=== PATIENT | female | born 1965 | race Caucasian/White ===

== ENCOUNTER 2018-04-15 06:53 | Outpatient (RCR) | payer OTHER, SELFPAY ==
[2018-04-15 07:14] LABS: Absolute Lymphocyte Count 2.13 X10^3/ul (0.83-4.51); Absolute Neutrophil Count 4.1 X10^3/uL (2.0-7.7); Basophil# 0.03 X10^3/uL; Basophil% 0.4 % (0-1); Eosinophil# 0.65 X10^3/uL; Hematocrit 40.8 % (37-47); Hemoglobin 13.5 g/dl (12.0-15.0); Lymphocyte # 2.13 X10^3/ul (4.0); Lymphocyte % 29.6 % (19-41); Mean Corp Hgb Conc 33.1 g/gl (32-36); Mean Corpuscular Hgb 32.3 pg (27.0-32.0); Mean Corpuscular Volume 97.6 fL (81-99); Mean Platelet Vol. 11.3 fl (6.2-12.0); Monocyte# 0.27 X10^3/uL; Monocyte% 3.8 % (0-10); Neutrophil # 4.11 X10^3/uL (2.7-7.7); Neutrophil % 57.2 % (47-70); Platelet Count 246 K/mm3 (150-450); RBC Distribution Width CV 13.7 % (11.6-14.6); RBC Distribution Width SD 47.5 fl (35.1-43.9); Red Blood Count 4.18 M/mm3 (4.2-5.4); White Blood Count 7.2 K/mm3 (4.4-11.0)
[2018-04-15 07:20] LABS: POSITIVE COUNT NO; POSITIVE DIFFERENTIAL NO; POSITIVE MORPHOLOGY NO
[2018-04-15 07:36] LABS: AST(SGOT) 21 U/L (15-37); Alanine Aminotransfer ALT/SGPT 29 U/L (13-56); Albumin, Serum 3.6 g/dL (3.2-5.0); Alkaline Phosphatase 57 U/L (45-117); Anion Gap 6 (5-15); BUN 14 mg/dL (7-18); BUN/Creat Ratio 14.7 RATIO (10-20); Calcium,Total 8.9 mg/dL (8.5-10.1); Chloride 108 mmol/L (98-107); Creatinine, Serum 0.95 mg/dL (0.55-1.02); EST Glomerular Filtration Rate 65 mL/min (>60); Est Glom Filt Rate - Afr Amer 79 mL/min (>60); Globulin 3.7 g/dL (2.2-4.2); Glucose 126 mg/dL (74-106); Potassium 4.2 mmol/L (3.5-5.1); Protein, Total 7.3 g/dL (6.4-8.2); Sodium Level 141 mmol/L (136-145)
== END 2018-04-15 08:00 | disposition home or self-care (01) ==
LOC: LAB 06:53
PROVIDERS: Family Provider Family Medicine; PCP Family Medicine; Visit Provider Internal Medicine Rheumatology
DX: M05.70 Rheumatoid arthritis with rheumatoid factor of unspecified site without organ or systems involvement (principal); Z79.899 Other long term (current) drug therapy; M17.0 Bilateral primary osteoarthritis of knee; F32.89 Other specified depressive episodes; E03.9 Hypothyroidism, unspecified
CPT/HCPCS: 36415; 80053; 85025

== ENCOUNTER → 2018-05-01 18:00 | Outpatient (CLI) | payer OTHER, SELFPAY | PROVIDERS: Family Provider Family Medicine; PCP Family Medicine | DX: R30.0 Dysuria (principal) | CPT/HCPCS: 87077; 87086; 87088; 87186 ==

== ENCOUNTER 2018-10-21 17:26 | Outpatient (RCR) | payer OTHER, SELFPAY ==
[2018-10-21 17:46] LABS: Absolute Lymphocyte Count 4.13 X10^3/ul (0.83-4.51); Absolute Neutrophil Count 4.9 X10^3/uL (2.0-7.7); Basophil# 0.03 X10^3/uL; Basophil% 0.3 % (0-1); Eosinophil# 0.19 X10^3/uL; Hematocrit 42.3 % (37-47); Hemoglobin 13.6 g/dl (12.0-15.0); Lymphocyte # 4.13 X10^3/ul (4.0); Lymphocyte % 42.7 % (19-41); Mean Corp Hgb Conc 32.2 g/gl (32-36); Mean Corpuscular Hgb 31.4 pg (27.0-32.0); Mean Corpuscular Volume 97.7 fL (81-99); Mean Platelet Vol. 10.8 fl (6.2-12.0); Monocyte# 0.45 X10^3/uL; Monocyte% 4.6 % (0-10); Neutrophil # 4.87 X10^3/uL (2.7-7.7); Neutrophil % 50.3 % (47-70); Platelet Count 309 K/mm3 (150-450); RBC Distribution Width CV 13.8 % (11.6-14.6); RBC Distribution Width SD 49.6 fl (35.1-43.9); Red Blood Count 4.33 M/mm3 (4.2-5.4); White Blood Count 9.7 K/mm3 (4.4-11.0)
[2018-10-21 18:17] LABS: POSITIVE COUNT NO; POSITIVE DIFFERENTIAL NO; POSITIVE MORPHOLOGY NO
[2018-10-21 19:05] LABS: ALB/GLOB Ratio 1.1 RATIO (0.9-2.4); AST(SGOT) 14 U/L (15-37); Alanine Aminotransfer ALT/SGPT 23 U/L (13-56); Albumin, Serum 3.6 g/dL (3.2-5.0); Alkaline Phosphatase 71 U/L (45-117); Anion Gap 9 (5-15); BUN 18 mg/dL (7-18); BUN/Creat Ratio 18.4 RATIO (10-20); CRP < 2.90 mg/L (0.0-3.0); Calcium,Total 8.8 mg/dL (8.5-10.1); Chloride 106 mmol/L (98-107); Creatinine, Serum 0.98 mg/dL (0.55-1.02); EST Glomerular Filtration Rate 63 mL/min (>60); Est Glom Filt Rate - Afr Amer 76 mL/min (>60); Globulin 3.3 g/dL (2.2-4.2); Glucose 91 mg/dL (74-106); Potassium 3.5 mmol/L (3.5-5.1); Protein, Total 6.9 g/dL (6.4-8.2); Sodium Level 140 mmol/L (136-145); T4 Free Direct 0.93 ng/dL (0.76-1.46); Thyroid Stim Hormone (TSH) 5.52 uIU/mL (0.358-3.74)
[2018-10-26 19:57] LABS: Immunoglobulin E 684 IU/mL (0-100)
== END 2018-10-21 18:26 | disposition home or self-care (01) ==
LOC: LAB 17:26
PROVIDERS: Family Provider Family Medicine; PCP Internal Medicine Rheumatology; Referring Provider Internal Medicine Rheumatology; Visit Provider Internal Medicine Rheumatology
DX: M05.731 Rheumatoid arthritis with rheumatoid factor of right wrist without organ or systems involvement (principal); Z79.899 Other long term (current) drug therapy; M17.0 Bilateral primary osteoarthritis of knee; F32.89 Other specified depressive episodes; E03.9 Hypothyroidism, unspecified; M06.9 Rheumatoid arthritis, unspecified
CPT/HCPCS: 36415; 80053; 82785; 84439; 84443; 84481; 85025; 86140; 86431

== ENCOUNTER → 2019-04-24 | Outpatient (CLI) | payer OTHER, SELFPAY ==
[2019-04-24 11:19] LABS: Absolute Lymphocyte Count 2.64 X10^3/ul (0.83-4.51); Absolute Neutrophil Count 5.5 X10^3/uL (2.0-7.7); Basophil# 0.05 X10^3/uL; Basophil% 0.5 % (0-1); Eosinophil# 0.72 X10^3/uL; Eosinophils% 7.5 % (0-5); Hematocrit 39.7 % (37-47); Lymphocyte # 2.64 X10^3/ul (4.0); Lymphocyte % 27.6 % (19-41); Mean Corp Hgb Conc 32.7 g/gl (32-36); Mean Corpuscular Hgb 30.6 pg (27.0-32.0); Mean Corpuscular Volume 93.4 fL (81-99); Mean Platelet Vol. 11.1 fl (6.2-12.0); Monocyte% 6.3 % (0-10); Neutrophil # 5.54 X10^3/uL (2.7-7.7); Neutrophil % 57.9 % (47-70); Platelet Count 330 K/mm3 (150-450); RBC Distribution Width CV 13.9 % (11.6-14.6); RBC Distribution Width SD 46.9 fl (35.1-43.9); Red Blood Count 4.25 M/mm3 (4.2-5.4); White Blood Count 9.6 K/mm3 (4.4-11.0)
[2019-04-24 11:22] LABS: POSITIVE COUNT NO; POSITIVE DIFFERENTIAL NO; POSITIVE MORPHOLOGY NO
[2019-04-24 11:42] LABS: AST(SGOT) 15 U/L (15-37); Alanine Aminotransfer ALT/SGPT 25 U/L (13-56); Albumin, Serum 3.5 g/dL (3.2-5.0); Alkaline Phosphatase 74 U/L (45-117); Anion Gap 6 (5-15); BUN 21 mg/dL (7-18); BUN/Creat Ratio 22.2 RATIO (10-20); Chloride 109 mmol/L (98-107); Creatinine, Serum 0.94 mg/dL (0.55-1.02); EST Glomerular Filtration Rate 66 mL/min (>60); Est Glom Filt Rate - Afr Amer 79 mL/min (>60); Globulin 3.6 g/dL (2.2-4.2); Glucose 76 mg/dL (74-106); Potassium 4.2 mmol/L (3.5-5.1); Protein, Total 7.1 g/dL (6.4-8.2); Sodium Level 141 mmol/L (136-145)
== END | disposition home or self-care (01) ==
LOC: LAB 09:48
PROVIDERS: Family Provider Family Medicine; PCP Family Medicine; Referring Provider Internal Medicine Rheumatology; Visit Provider Internal Medicine Rheumatology
DX: M05.70 Rheumatoid arthritis with rheumatoid factor of unspecified site without organ or systems involvement (principal); M17.0 Bilateral primary osteoarthritis of knee; M47.892 Other spondylosis, cervical region; F32.89 Other specified depressive episodes; E03.9 Hypothyroidism, unspecified; Z79.899 Other long term (current) drug therapy
CPT/HCPCS: 36415; 80053; 85025

== ENCOUNTER 2019-05-05 16:30 | Outpatient (RCR) | payer OTHER, SELFPAY | END 2019-05-05 19:00 | disposition home or self-care (01) | LOC: PT 16:30 | PROVIDERS: Family Provider Family Medicine; PCP Family Medicine; Referring Provider Internal Medicine Rheumatology; Visit Provider Internal Medicine Rheumatology | DX: M05.731 Rheumatoid arthritis with rheumatoid factor of right wrist without organ or systems involvement (principal); M17.0 Bilateral primary osteoarthritis of knee; M47.892 Other spondylosis, cervical region | CPT/HCPCS: 97161 ==

== ENCOUNTER → 2019-10-22 16:42 | Outpatient (CLI) | payer OTHER, SELFPAY ==
[2019-10-22 17:16] LABS: Absolute Neutrophil Count 4.7 X10^3/uL (2.0-7.7); Basophil# 0.06 X10^3/uL; Basophil% 0.7 % (0-1); Eosinophil# 0.46 X10^3/uL; Eosinophils% 5.4 % (0-5); Hematocrit 42.3 % (37-47); Hemoglobin 13.7 g/dL (12.0-15.0); Mean Corp Hgb Conc 32.4 g/dL (32-36); Mean Corpuscular Hgb 31.4 pg (27.0-32.0); Mean Platelet Vol. 10.9 fl (6.2-12.0); Monocyte# 0.42 X10^3/uL; NRBC Flagged by Analyzer 0 % (0-5); Neutrophil # 4.71 X10^3/uL (2.7-7.7); Neutrophil % 55.5 % (47-70); Platelet Count 348 K/mm3 (150-450); RBC Distribution Width CV 13.6 % (11.6-14.6); RBC Distribution Width SD 48.2 fl (35.1-43.9); Red Blood Count 4.36 M/mm3 (4.2-5.4); White Blood Count 8.5 K/mm3 (4.4-11.0)
[2019-10-22 17:30] LABS: ALB/GLOB Ratio 1.1 RATIO (0.9-2.4); AST(SGOT) 22 U/L (15-37); Alanine Aminotransfer ALT/SGPT 33 U/L (13-56); Alkaline Phosphatase 88 U/L (45-117); Anion Gap 6 (5-15); BUN 17 mg/dL (7-18); BUN/Creat Ratio 16.7 RATIO (10-20); Calcium,Total 9.5 mg/dL (8.5-10.1); Chloride 106 mmol/L (98-107); Creatinine, Serum 1.02 mg/dL (0.55-1.02); EST Glomerular Filtration Rate 60 mL/min (>60); Est Glom Filt Rate - Afr Amer 73 mL/min (>60); Globulin 3.6 g/dL (2.2-4.2); Glucose 127 mg/dL (74-106); Potassium 3.8 mmol/L (3.5-5.1); Protein, Total 7.6 g/dL (6.4-8.2); Sodium Level 139 mmol/L (136-145)
== END ==
LOC: LAB 16:44
PROVIDERS: Family Provider Family Medicine; PCP Family Medicine; Referring Provider Internal Medicine Rheumatology; Visit Provider Internal Medicine Rheumatology
DX: M05.70 Rheumatoid arthritis with rheumatoid factor of unspecified site without organ or systems involvement (principal); M17.0 Bilateral primary osteoarthritis of knee; M47.892 Other spondylosis, cervical region; F32.89 Other specified depressive episodes; E03.9 Hypothyroidism, unspecified; Z79.899 Other long term (current) drug therapy
CPT/HCPCS: 36415; 80053; 85025

== ENCOUNTER → 2020-04-19 17:40 | Outpatient (CLI) | payer OTHER, SELFPAY ==
[2020-04-19 17:54] LABS: Absolute Lymphocyte Count 2.92 X10^3/uL (0.83-4.51); Absolute Neutrophil Count 4.1 X10^3/uL (2.0-7.7); Basophil# 0.06 X10^3/uL; Basophil% 0.8 % (0-1); Eosinophil# 0.31 X10^3/uL; Hematocrit 39.1 % (37-47); Hemoglobin 12.9 g/dL (12.0-15.0); Lymphocyte # 2.92 X10^3/ul (4.0); Lymphocyte % 37.4 % (19-41); Mean Corpuscular Hgb 31.7 pg (27.0-32.0); Mean Corpuscular Volume 96.1 fL (81-99); Mean Platelet Vol. 10.3 fl (6.2-12.0); Monocyte# 0.44 X10^3/uL; Monocyte% 5.6 % (0-10); NRBC Flagged by Analyzer 0 % (0-5); Neutrophil # 4.07 X10^3/uL (2.7-7.7); Neutrophil % 52.1 % (47-70); Platelet Count 328 K/mm3 (150-450); RBC Distribution Width CV 13.9 % (11.6-14.6); RBC Distribution Width SD 48.6 fl (35.1-43.9); Red Blood Count 4.07 M/mm3 (4.2-5.4); White Blood Count 7.8 K/mm3 (4.4-11.0)
[2020-04-19 18:39] LABS: ALB/GLOB Ratio 0.9 RATIO (0.9-2.4); AST(SGOT) 19 U/L (15-37); Alanine Aminotransfer ALT/SGPT 25 U/L (13-56); Albumin, Serum 3.6 g/dL (3.2-5.0); Alkaline Phosphatase 82 U/L (45-117); Anion Gap 8 (5-15); BUN 14 mg/dL (7-18); BUN/Creat Ratio 14.6 RATIO (10-20); Calcium,Total 8.7 mg/dL (8.5-10.1); Chloride 109 mmol/L (98-107); Cholesterol 196 mg/dL (200); Creatinine, Serum 0.96 mg/dL (0.55-1.02); EST Glomerular Filtration Rate 64 mL/min (>60); Est Glom Filt Rate - Afr Amer 77 mL/min (>60); Free T3 1.7 pg/mL (2.18-3.98); Glucose 108 mg/dL (74-106); High Density Lipoprotein 65 mg/dL; Potassium 3.5 mmol/L (3.5-5.1); Protein, Total 7.6 g/dL (6.4-8.2); Sodium Level 139 mmol/L (136-145); Thyroid Stim Hormone (TSH) 3.43 uIU/mL (0.358-3.74); Triglycerides 88 mg/dL; Very Low Density Lipoprotein 18 mg/dL (5-40)
== END ==
PROVIDERS: PCP Family Medicine; Referring Provider Internal Medicine Rheumatology; Visit Provider Internal Medicine Rheumatology
DX: Z13.220 Encounter for screening for lipoid disorders (principal); E03.9 Hypothyroidism, unspecified
CPT/HCPCS: 36415; 80053; 80061; 84439; 84443; 84481; 85025

== ENCOUNTER → 2020-09-22 11:59 | Outpatient (CLI) | payer OTHER, SELFPAY | PROVIDERS: PCP Family Medicine; Referring Provider Family Medicine; Visit Provider Family Medicine | DX: R09.89 Other specified symptoms and signs involving the circulatory and respiratory systems (principal) | CPT/HCPCS: 87635; U0003 ==

== ENCOUNTER → 2020-10-04 10:51 | Outpatient (CLI) | payer OTHER, SELFPAY ==
[2020-10-04 11:33] LABS: Absolute Lymphocyte Count 2.52 X10^3/uL (0.83-4.51); Absolute Neutrophil Count 4.7 X10^3/uL (2.0-7.7); Basophil# 0.08 X10^3/uL; Basophil% 0.9 % (0-1); Eosinophil# 0.53 X10^3/uL; Eosinophils% 6.3 % (0-5); Hematocrit 42.3 % (37-47); Lymphocyte # 2.52 X10^3/ul (4.0); Lymphocyte % 29.9 % (19-41); Mean Corp Hgb Conc 33.1 g/dL (32-36); Mean Corpuscular Hgb 31.7 pg (27.0-32.0); Mean Corpuscular Volume 95.7 fL (81-99); Mean Platelet Vol. 11.1 fl (6.2-12.0); Monocyte# 0.58 X10^3/uL; Monocyte% 6.9 % (0-10); NRBC Flagged by Analyzer 0 % (0-5); Neutrophil # 4.69 X10^3/uL (2.7-7.7); Neutrophil % 55.6 % (47-70); Platelet Count 336 K/mm3 (150-450); RBC Distribution Width CV 13.2 % (11.6-14.6); Red Blood Count 4.42 M/mm3 (4.2-5.4); White Blood Count 8.4 K/mm3 (4.4-11.0)
[2020-10-04 12:12] LABS: ALB/GLOB Ratio 0.9 RATIO (0.9-2.4); AST(SGOT) 20 U/L (15-37); Alanine Aminotransfer ALT/SGPT 29 U/L (13-56); Albumin, Serum 3.6 g/dL (3.2-5.0); Alkaline Phosphatase 101 U/L (45-117); Anion Gap 5 (5-15); BUN 14 mg/dL (7-18); Calcium,Total 9.2 mg/dL (8.5-10.1); Chloride 106 mmol/L (98-107); Creatinine, Serum 0.93 mg/dL (0.55-1.02); EST Glomerular Filtration Rate 66 mL/min (>60); Est Glom Filt Rate - Afr Amer 80 mL/min (>60); Globulin 3.8 g/dL (2.2-4.2); Glucose 86 mg/dL (74-106); Potassium 4.1 mmol/L (3.5-5.1); Protein, Total 7.4 g/dL (6.4-8.2); Sodium Level 137 mmol/L (136-145)
== END ==
PROVIDERS: PCP Family Medicine; Referring Provider Internal Medicine Rheumatology; Visit Provider Internal Medicine Rheumatology
DX: M05.79 Rheumatoid arthritis with rheumatoid factor of multiple sites without organ or systems involvement (principal); M17.0 Bilateral primary osteoarthritis of knee; M47.892 Other spondylosis, cervical region; F32.89 Other specified depressive episodes; E03.9 Hypothyroidism, unspecified; Z79.899 Other long term (current) drug therapy
CPT/HCPCS: 36415; 80053; 85025

== ENCOUNTER → 2020-12-21 11:44 | Outpatient (CLI) | payer OTHER, SELFPAY ==
[2020-12-21 12:23] LABS: Absolute Lymphocyte Count 2.41 X10^3/uL (0.83-4.51); Absolute Neutrophil Count 4.8 X10^3/uL (2.0-7.7); Basophil# 0.05 X10^3/uL; Basophil% 0.6 % (0-1); Eosinophil# 0.48 X10^3/uL; Eosinophils% 5.8 % (0-5); Hematocrit 41.5 % (37-47); Hemoglobin 13.5 g/dL (12.0-15.0); Lymphocyte # 2.41 X10^3/ul (4.0); Lymphocyte % 29.1 % (19-41); Mean Corp Hgb Conc 32.5 g/dL (32-36); Mean Corpuscular Hgb 31.2 pg (27.0-32.0); Mean Corpuscular Volume 95.8 fL (81-99); Mean Platelet Vol. 11.2 fl (6.2-12.0); Monocyte# 0.49 X10^3/uL; Monocyte% 5.9 % (0-10); NRBC Flagged by Analyzer 0 % (0-5); Neutrophil # 4.84 X10^3/uL (2.7-7.7); Neutrophil % 58.4 % (47-70); Platelet Count 324 K/mm3 (150-450); RBC Distribution Width CV 13.6 % (11.6-14.6); RBC Distribution Width SD 47.8 fl (35.1-43.9); Red Blood Count 4.33 M/mm3 (4.2-5.4); White Blood Count 8.3 K/mm3 (4.4-11.0)
[2020-12-21 13:03] LABS: AST(SGOT) 21 U/L (15-37); Alanine Aminotransfer ALT/SGPT 26 U/L (13-56); Albumin, Serum 3.7 g/dL (3.2-5.0); Alkaline Phosphatase 102 U/L (45-117); Anion Gap 7 (5-15); BUN 13 mg/dL (7-18); BUN/Creat Ratio 13.8 RATIO (10-20); Calcium,Total 9.1 mg/dL (8.5-10.1); Chloride 106 mmol/L (98-107); Creatinine, Serum 0.94 mg/dL (0.55-1.02); EST Glomerular Filtration Rate 65 mL/min (>60); Est Glom Filt Rate - Afr Amer 79 mL/min (>60); Globulin 3.7 g/dL (2.2-4.2); Glucose 81 mg/dL (74-106); Potassium 4.2 mmol/L (3.5-5.1); Protein, Total 7.4 g/dL (6.4-8.2); Sodium Level 136 mmol/L (136-145)
== END ==
PROVIDERS: PCP Family Medicine; Referring Provider Internal Medicine Rheumatology; Visit Provider Internal Medicine Rheumatology
DX: M05.70 Rheumatoid arthritis with rheumatoid factor of unspecified site without organ or systems involvement (principal); M17.0 Bilateral primary osteoarthritis of knee; M47.892 Other spondylosis, cervical region; F32.89 Other specified depressive episodes; E03.9 Hypothyroidism, unspecified
CPT/HCPCS: 36415; 80053; 85025

== ENCOUNTER 2020-12-28 14:15 | Outpatient (RCR) | payer OTHER, SELFPAY ==
[2020-12-28] MEDS: COVID-19 VACC, MRNA(PFIZER)/PF 30 MCG/0.3 ML SYRINGE IM (07:25)
[2021-01-18] MEDS: COVID-19 VACC, MRNA(PFIZER)/PF 30 MCG/0.3 ML SYRINGE IM (07:02)
== END 2021-03-22 23:59 ==
LOC: IMMUN 14:15
PROVIDERS: PCP Family Medicine; Referring Provider Family Medicine; Visit Provider Family Medicine
DX: Z23 Encounter for immunization (principal)
CPT/HCPCS: 0001A; 0002A; 91300

== ENCOUNTER → 2021-07-12 10:27 | Outpatient (CLI) | payer OTHER, SELFPAY ==
[2021-07-12 11:07] LABS: Absolute Lymphocyte Count 2.54 X10^3/uL (0.83-4.51); Absolute Neutrophil Count 4.3 X10^3/uL (2.0-7.7); Basophil# 0.07 X10^3/uL; Basophil% 0.9 % (0-1); Eosinophil# 0.73 X10^3/uL; Eosinophils% 9.2 % (0-5); Hemoglobin 13.7 g/dL (12.0-15.0); Lymphocyte # 2.54 X10^3/ul (0.83-4.51); Lymphocyte % 31.9 % (19-41); Mean Corp Hgb Conc 32.6 g/dL (32-36); Mean Corpuscular Hgb 30.6 pg (27.0-32.0); Mean Corpuscular Volume 93.8 fL (81-99); Mean Platelet Vol. 11.5 fl (6.2-12.0); Monocyte# 0.35 X10^3/uL; Monocyte% 4.4 % (0-10); NRBC Flagged by Analyzer 0 % (0-5); Neutrophil # 4.27 X10^3/uL (2.7-7.7); Neutrophil % 53.5 % (47-70); Platelet Count 336 K/mm3 (150-450); RBC Distribution Width CV 13.4 % (11.6-14.6); RBC Distribution Width SD 45.5 fl (35.1-43.9); Red Blood Count 4.48 M/mm3 (4.2-5.4)
[2021-07-12 11:34] LABS: ALB/GLOB Ratio 0.9 RATIO (0.9-2.4); AST(SGOT) 28 U/L (15-37); Alanine Aminotransfer ALT/SGPT 36 U/L (13-56); Albumin, Serum 3.5 g/dL (3.2-5.0); Alkaline Phosphatase 107 U/L (45-117); Anion Gap 10 (5-15); BUN 17 mg/dL (7-18); BUN/Creat Ratio 18.1 RATIO (10-20); Calcium,Total 9.5 mg/dL (8.5-10.1); Chloride 106 mmol/L (98-107); Creatinine, Serum 0.94 mg/dL (0.55-1.02); EST Glomerular Filtration Rate 66 mL/min (>60); Est Glom Filt Rate - Afr Amer 79 mL/min (>60); Globulin 3.9 g/dL (2.2-4.2); Glucose 94 mg/dL (74-106); Potassium 4.2 mmol/L (3.5-5.1); Protein, Total 7.4 g/dL (6.4-8.2); Sodium Level 141 mmol/L (136-145)
== END ==
PROVIDERS: PCP Family Medicine; Referring Provider Internal Medicine Rheumatology; Visit Provider Internal Medicine Rheumatology
DX: M05.70 Rheumatoid arthritis with rheumatoid factor of unspecified site without organ or systems involvement (principal); M17.0 Bilateral primary osteoarthritis of knee; M47.892 Other spondylosis, cervical region; F32.89 Other specified depressive episodes; E03.9 Hypothyroidism, unspecified; Z79.899 Other long term (current) drug therapy
CPT/HCPCS: 36415; 80053; 85025

== ENCOUNTER → 2021-07-14 11:13 | Outpatient (CLI) | payer OTHER, SELFPAY | PROVIDERS: PCP Family Medicine; Referring Provider Physician Assistant; Visit Provider Physician Assistant | DX: Z11.52 Encounter for screening for COVID-19 (principal) | CPT/HCPCS: 87635; U0005; U0003 ==

== ENCOUNTER → 2021-09-30 08:14 | Outpatient (CLI) | payer OTHER, SELFPAY | PROVIDERS: PCP Family Medicine; Visit Provider Physician Assistant Surgical | DX: Z11.52 Encounter for screening for COVID-19 (principal) | CPT/HCPCS: 87635; U0005; U0003 ==

== ENCOUNTER → 2021-10-03 13:39 | Outpatient (CLI) | payer OTHER, SELFPAY ==
[2021-10-03 16:20] LABS: Absolute Lymphocyte Count 2.12 X10^3/uL (0.83-4.51); Absolute Neutrophil Count 5.4 X10^3/uL (2.0-7.7); Basophil# 0.06 X10^3/uL; Basophil% 0.7 % (0-1); Eosinophil# 0.49 X10^3/uL; Eosinophils% 5.8 % (0-5); Hematocrit 42.7 % (37-47); Lymphocyte # 2.12 X10^3/ul (0.83-4.51); Lymphocyte % 25.2 % (19-41); Mean Corp Hgb Conc 32.8 g/dL (32-36); Mean Corpuscular Hgb 31.1 pg (27.0-32.0); Mean Corpuscular Volume 94.9 fL (81-99); Mean Platelet Vol. 11.6 fl (6.2-12.0); Monocyte# 0.36 X10^3/uL; Monocyte% 4.3 % (0-10); NRBC Flagged by Analyzer 0 % (0-5); Neutrophil # 5.35 X10^3/uL (2.7-7.7); Neutrophil % 63.8 % (47-70); Platelet Count 334 K/mm3 (150-450); RBC Distribution Width SD 48.3 fl (35.1-43.9); White Blood Count 8.4 K/mm3 (4.4-11.0)
[2021-10-03 16:49] LABS: ALB/GLOB Ratio 0.9 RATIO (0.9-2.4); AST(SGOT) 19 U/L (15-37); Alanine Aminotransfer ALT/SGPT 34 U/L (13-56); Albumin, Serum 3.7 g/dL (3.2-5.0); Alkaline Phosphatase 109 U/L (45-117); Anion Gap 10 (5-15); BUN 20 mg/dL (7-18); BUN/Creat Ratio 20.9 RATIO (10-20); Calcium,Total 9.3 mg/dL (8.5-10.1); Chloride 107 mmol/L (98-107); Creatinine, Serum 0.96 mg/dL (0.55-1.02); EST Glomerular Filtration Rate 64 mL/min (>60); Est Glom Filt Rate - Afr Amer 77 mL/min (>60); Glucose 95 mg/dL (74-106); Potassium 3.8 mmol/L (3.5-5.1); Protein, Total 7.7 g/dL (6.4-8.2); Sodium Level 142 mmol/L (136-145)
== END ==
LOC: LAB 13:41
PROVIDERS: PCP Family Medicine; Visit Provider Internal Medicine Rheumatology
DX: M05.70 Rheumatoid arthritis with rheumatoid factor of unspecified site without organ or systems involvement (principal); M17.0 Bilateral primary osteoarthritis of knee; M47.892 Other spondylosis, cervical region; F32.89 Other specified depressive episodes; E03.9 Hypothyroidism, unspecified; Z79.899 Other long term (current) drug therapy
CPT/HCPCS: 36415; 80053; 85025

== ENCOUNTER → 2021-10-05 15:37 | Outpatient (CLI) | payer OTHER, SELFPAY | PROVIDERS: PCP Family Medicine; Referring Provider Physician Assistant; Visit Provider Physician Assistant | DX: Z11.52 Encounter for screening for COVID-19 (principal) | CPT/HCPCS: 87635; U0005; U0003 ==

== ENCOUNTER 2021-10-28 17:39 | Outpatient (CLI) | payer BC, SELFPAY | END 2021-10-28 23:59 | disposition short-term general hospital (02) | PROVIDERS: PCP Family Medicine; Referring Provider Family Medicine; Visit Provider Family Medicine | DX: J32.9 Chronic sinusitis, unspecified (principal) | CPT/HCPCS: 87635; U0003; U0005 ==

== ENCOUNTER 2021-12-20 08:23 | Outpatient (CLI) | payer BC, SELFPAY ==
[2021-12-20 09:22] LABS: Absolute Lymphocyte Count 2.14 X10^3/uL (0.83-4.51); Basophil# 0.06 X10^3/uL; Basophil% 0.7 % (0-1); Eosinophil# 0.59 X10^3/uL; Eosinophils% 7.3 % (0-5); Hematocrit 42.4 % (37-47); Lymphocyte # 2.14 X10^3/ul (0.83-4.51); Lymphocyte % 26.4 % (19-41); Mean Corpuscular Hgb 31.5 pg (27.0-32.0); Mean Corpuscular Volume 95.3 fL (81-99); Mean Platelet Vol. 11.3 fl (6.2-12.0); Monocyte# 0.36 X10^3/uL; Monocyte% 4.4 % (0-10); NRBC Flagged by Analyzer 0 % (0-5); Neutrophil # 4.96 X10^3/uL (2.7-7.7); Neutrophil % 61.1 % (47-70); Platelet Count 328 K/mm3 (150-450); RBC Distribution Width CV 13.5 % (11.6-14.6); RBC Distribution Width SD 46.7 fl (35.1-43.9); Red Blood Count 4.45 M/mm3 (4.2-5.4); White Blood Count 8.1 K/mm3 (4.4-11.0)
[2021-12-20 09:48] LABS: ALB/GLOB Ratio 0.9 RATIO (0.9-2.4); AST(SGOT) 23 U/L (15-37); Alanine Aminotransfer ALT/SGPT 31 U/L (13-56); Albumin, Serum 3.6 g/dL (3.2-5.0); Alkaline Phosphatase 104 U/L (45-117); Anion Gap 5 (5-15); BUN 16 mg/dL (7-18); BUN/Creat Ratio 13.8 RATIO (10-20); Calcium,Total 9.7 mg/dL (8.5-10.1); Chloride 110 mmol/L (98-107); Creatinine, Serum 1.16 mg/dL (0.55-1.02); EST Glomerular Filtration Rate 51 mL/min (>60); Est Glom Filt Rate - Afr Amer 62 mL/min (>60); Globulin 3.8 g/dL (2.2-4.2); Glucose 117 mg/dL (74-106); Potassium 4.1 mmol/L (3.5-5.1); Protein, Total 7.4 g/dL (6.4-8.2); Sodium Level 141 mmol/L (136-145)
== END 2021-12-20 23:59 | disposition home or self-care (01) ==
LOC: LAB 08:26
PROVIDERS: PCP Family Medicine; Visit Provider Internal Medicine Rheumatology
DX: M05.70 Rheumatoid arthritis with rheumatoid factor of unspecified site without organ or systems involvement (principal); M17.0 Bilateral primary osteoarthritis of knee; M47.892 Other spondylosis, cervical region; F32.89 Other specified depressive episodes; E03.9 Hypothyroidism, unspecified; Z79.899 Other long term (current) drug therapy
CPT/HCPCS: 36415; 80053; 85025

== ENCOUNTER → 2022-04-03 | Outpatient (CLI) | payer BC, SELFPAY ==
[2022-04-03 17:03] LABS: Absolute Lymphocyte Count 2.32 X10^3/uL (0.83-4.51); Absolute Neutrophil Count 4.8 X10^3/uL (2.0-7.7); Basophil# 0.07 X10^3/uL; Basophil% 0.9 % (0-1); Eosinophil# 0.61 X10^3/uL; Eosinophils% 7.4 % (0-5); Hematocrit 39.6 % (37-47); Hemoglobin 13.1 g/dL (12.0-15.0); Lymphocyte # 2.32 X10^3/ul (0.83-4.51); Lymphocyte % 28.2 % (19-41); Mean Corp Hgb Conc 33.1 g/dL (32-36); Mean Corpuscular Hgb 31.3 pg (27.0-32.0); Mean Corpuscular Volume 94.7 fL (81-99); Mean Platelet Vol. 11.7 fl (6.2-12.0); Monocyte# 0.45 X10^3/uL; Monocyte% 5.5 % (0-10); NRBC Flagged by Analyzer 0 % (0-5); Neutrophil # 4.75 X10^3/uL (2.7-7.7); Neutrophil % 57.8 % (47-70); Platelet Count 341 K/mm3 (150-450); RBC Distribution Width CV 13.8 % (11.6-14.6); RBC Distribution Width SD 47.6 fl (35.1-43.9); Red Blood Count 4.18 M/mm3 (4.2-5.4); White Blood Count 8.2 K/mm3 (4.4-11.0)
[2022-04-03 18:01] LABS: ALB/GLOB Ratio 0.9 RATIO (0.9-2.4); AST(SGOT) 20 U/L (15-37); Alanine Aminotransfer ALT/SGPT 31 U/L (13-56); Albumin, Serum 3.4 g/dL (3.2-5.0); Alkaline Phosphatase 101 U/L (45-117); Anion Gap 6 (5-15); BUN 16 mg/dL (7-18); BUN/Creat Ratio 16.7 RATIO (10-20); Calcium,Total 9.4 mg/dL (8.5-10.1); Chloride 107 mmol/L (98-107); Creatinine, Serum 0.96 mg/dL (0.55-1.02); EST Glomerular Filtration Rate 64 mL/min (>60); Est Glom Filt Rate - Afr Amer 77 mL/min (>60); Globulin 3.9 g/dL (2.2-4.2); Glucose 106 mg/dL (74-106); Potassium 4.1 mmol/L (3.5-5.1); Protein, Total 7.3 g/dL (6.4-8.2); Sodium Level 139 mmol/L (136-145)
== END | disposition home or self-care (01) ==
LOC: LAB 15:29
PROVIDERS: PCP Family Medicine; Visit Provider Internal Medicine Rheumatology
DX: M05.70 Rheumatoid arthritis with rheumatoid factor of unspecified site without organ or systems involvement (principal); M17.0 Bilateral primary osteoarthritis of knee; M47.892 Other spondylosis, cervical region; F32.89 Other specified depressive episodes; E03.9 Hypothyroidism, unspecified; Z79.899 Other long term (current) drug therapy
CPT/HCPCS: 36415; 80053; 85025

== ENCOUNTER → 2022-07-03 | Outpatient (CLI) | payer BC, SELFPAY ==
[2022-07-03 14:54] LABS: Absolute Neutrophil Count 3.2 X10^3/uL (2.0-7.7); Basophil# 0.07 X10^3/uL; Eosinophil# 0.52 X10^3/uL; Eosinophils% 7.7 % (0-5); Hematocrit 42.8 % (37-47); Hemoglobin 13.8 g/dL (12.0-15.0); Lymphocyte % 35.5 % (19-41); Mean Corp Hgb Conc 32.2 g/dL (32-36); Mean Corpuscular Hgb 30.7 pg (27.0-32.0); Mean Corpuscular Volume 95.1 fL (81-99); Mean Platelet Vol. 11.2 fl (6.2-12.0); Monocyte# 0.57 X10^3/uL; Monocyte% 8.4 % (0-10); NRBC Flagged by Analyzer 0 % (0-5); Neutrophil # 3.17 X10^3/uL (2.7-7.7); Platelet Count 335 K/mm3 (150-450); RBC Distribution Width CV 13.8 % (11.6-14.6); RBC Distribution Width SD 47.7 fl (35.1-43.9); White Blood Count 6.8 K/mm3 (4.4-11.0)
[2022-07-03 15:24] LABS: ALB/GLOB Ratio 0.9 RATIO (0.9-2.4); AST(SGOT) 16 U/L (15-37); Alanine Aminotransfer ALT/SGPT 27 U/L (13-56); Albumin, Serum 3.6 g/dL (3.2-5.0); Alkaline Phosphatase 115 U/L (45-117); Anion Gap 5 (5-15); BUN 14 mg/dL (7-18); BUN/Creat Ratio 13.6 RATIO (10-20); Calcium,Total 9.5 mg/dL (8.5-10.1); Chloride 107 mmol/L (98-107); Creatinine, Serum 1.03 mg/dL (0.55-1.02); EST Glomerular Filtration Rate 59 mL/min (>60); Est Glom Filt Rate - Afr Amer 71 mL/min (>60); Globulin 4.2 g/dL (2.2-4.2); Glucose 83 mg/dL (74-106); Potassium 3.7 mmol/L (3.5-5.1); Protein, Total 7.8 g/dL (6.4-8.2); Sodium Level 141 mmol/L (136-145)
== END | disposition home or self-care (01) ==
LOC: LAB 14:13
PROVIDERS: PCP Family Medicine; Referring Provider Internal Medicine Rheumatology; Visit Provider Internal Medicine Rheumatology
DX: M05.70 Rheumatoid arthritis with rheumatoid factor of unspecified site without organ or systems involvement (principal); M17.0 Bilateral primary osteoarthritis of knee; M47.892 Other spondylosis, cervical region; F32.89 Other specified depressive episodes; E03.9 Hypothyroidism, unspecified; Z79.899 Other long term (current) drug therapy
CPT/HCPCS: 36415; 80053; 85025

== ENCOUNTER → 2022-12-27 | Outpatient (CLI) | payer BC, SELFPAY ==
[2022-12-27 08:44] LABS: Absolute Lymphocyte Count 2.37 X10^3/uL (0.83-4.51); Absolute Neutrophil Count 3.3 X10^3/uL (2.0-7.7); Basophil# 0.05 X10^3/uL; Basophil% 0.7 % (0-1); Eosinophil# 0.54 X10^3/uL; Eosinophils% 8.1 % (0-5); Hematocrit 43.4 % (37-47); Hemoglobin 13.9 g/dL (12.0-15.0); Lymphocyte # 2.37 X10^3/ul (0.83-4.51); Lymphocyte % 35.4 % (19-41); Mean Corpuscular Hgb 31.2 pg (27.0-32.0); Mean Corpuscular Volume 97.5 fL (81-99); Mean Platelet Vol. 11.2 fl (6.2-12.0); Monocyte# 0.38 X10^3/uL; Monocyte% 5.7 % (0-10); NRBC Flagged by Analyzer 0 % (0-5); Neutrophil # 3.34 X10^3/uL (2.7-7.7); Neutrophil % 49.8 % (47-70); Platelet Count 368 K/mm3 (150-450); RBC Distribution Width CV 13.7 % (11.6-14.6); Red Blood Count 4.45 M/mm3 (4.2-5.4); White Blood Count 6.7 K/mm3 (4.4-11.0)
[2022-12-27 09:08] LABS: AST(SGOT) 24 U/L (15-37); Alanine Aminotransfer ALT/SGPT 33 U/L (13-56); Albumin, Serum 3.6 g/dL (3.2-5.0); Alkaline Phosphatase 99 U/L (45-117); Anion Gap 5 (5-15); BUN 13 mg/dL (7-18); BUN/Creat Ratio 13.4 RATIO (10-20); Calcium,Total 9.2 mg/dL (8.5-10.1); Chloride 109 mmol/L (98-107); Creatinine, Serum 0.97 mg/dL (0.55-1.02); EST Glomerular Filtration Rate 63 mL/min (>60); Est Glom Filt Rate - Afr Amer 76 mL/min (>60); Globulin 3.6 g/dL (2.2-4.2); Glucose 103 mg/dL (74-106); Potassium 3.9 mmol/L (3.5-5.1); Protein, Total 7.2 g/dL (6.4-8.2); Sodium Level 143 mmol/L (136-145)
== END | disposition home or self-care (01) ==
LOC: LAB 07:26
PROVIDERS: PCP Family Medicine; Referring Provider Internal Medicine Rheumatology; Visit Provider Internal Medicine Rheumatology
DX: M05.70 Rheumatoid arthritis with rheumatoid factor of unspecified site without organ or systems involvement (principal); Z79.899 Other long term (current) drug therapy
CPT/HCPCS: 36415; 80053; 85025

== ENCOUNTER → 2023-03-20 | Outpatient (CLI) | payer BC, SELFPAY ==
[2023-03-20 16:35] LABS: Absolute Lymphocyte Count 2.45 X10^3/uL (0.83-4.51); Absolute Neutrophil Count 6.4 X10^3/uL (2.0-7.7); Basophil# 0.07 X10^3/uL; Basophil% 0.7 % (0-1); Eosinophil# 0.73 X10^3/uL; Eosinophils% 7.1 % (0-5); Hematocrit 42.1 % (37-47); Hemoglobin 13.7 g/dL (12.0-15.0); Lymphocyte # 2.45 X10^3/ul (0.83-4.51); Mean Corp Hgb Conc 32.5 g/dL (32-36); Mean Corpuscular Hgb 31.4 pg (27.0-32.0); Mean Corpuscular Volume 96.6 fL (81-99); Mean Platelet Vol. 11.5 fl (6.2-12.0); Monocyte# 0.51 X10^3/uL; NRBC Flagged by Analyzer 0 % (0-5); Neutrophil # 6.42 X10^3/uL (2.7-7.7); Neutrophil % 62.9 % (47-70); Platelet Count 354 K/mm3 (150-450); RBC Distribution Width CV 13.9 % (11.6-14.6); RBC Distribution Width SD 49.1 fl (35.1-43.9); Red Blood Count 4.36 M/mm3 (4.2-5.4); White Blood Count 10.2 K/mm3 (4.4-11.0)
[2023-03-20 17:21] LABS: ALB/GLOB Ratio 0.9 RATIO (0.9-2.4); AST(SGOT) 21 U/L (15-37); Alanine Aminotransfer ALT/SGPT 26 U/L (13-56); Albumin, Serum 3.5 g/dL (3.2-5.0); Alkaline Phosphatase 113 U/L (45-117); Anion Gap 7 (5-15); BUN 18 mg/dL (7-18); BUN/Creat Ratio 18.2 RATIO (10-20); Calcium,Total 9.2 mg/dL (8.5-10.1); Chloride 110 mmol/L (98-107); Creatinine, Serum 0.99 mg/dL (0.55-1.02); EST Glomerular Filtration Rate 61 mL/min (>60); Est Glom Filt Rate - Afr Amer 74 mL/min (>60); Glucose 94 mg/dL (74-106); Potassium 3.9 mmol/L (3.5-5.1); Protein, Total 7.5 g/dL (6.4-8.2); Sodium Level 139 mmol/L (136-145)
== END | disposition home or self-care (01) ==
LOC: LAB 15:13
PROVIDERS: PCP Family Medicine; Referring Provider Internal Medicine Rheumatology; Visit Provider Internal Medicine Rheumatology
DX: M05.70 Rheumatoid arthritis with rheumatoid factor of unspecified site without organ or systems involvement (principal); Z79.899 Other long term (current) drug therapy
CPT/HCPCS: 36415; 80053; 85025

== ENCOUNTER → 2023-06-11 | Outpatient (CLI) | payer BC, SELFPAY ==
[2023-06-11 08:24] LABS: Absolute Lymphocyte Count 2.69 X10^3/uL (0.83-4.51); Basophil# 0.07 X10^3/uL; Basophil% 0.9 % (0-1); Eosinophil# 0.86 X10^3/uL; Eosinophils% 10.6 % (0-5); Hematocrit 43.7 % (37-47); Hemoglobin 14.1 g/dL (12.0-15.0); Lymphocyte # 2.69 X10^3/ul (0.83-4.51); Lymphocyte % 33.3 % (19-41); Mean Corp Hgb Conc 32.3 g/dL (32-36); Mean Corpuscular Hgb 30.5 pg (27.0-32.0); Mean Corpuscular Volume 94.4 fL (81-99); Mean Platelet Vol. 10.6 fl (6.2-12.0); Monocyte# 0.45 X10^3/uL; Monocyte% 5.6 % (0-10); NRBC Flagged by Analyzer 0 % (0-5); Neutrophil % 49.4 % (47-70); Platelet Count 331 K/mm3 (150-450); RBC Distribution Width CV 13.7 % (11.6-14.6); RBC Distribution Width SD 46.8 fl (35.1-43.9); Red Blood Count 4.63 M/mm3 (4.2-5.4); White Blood Count 8.1 K/mm3 (4.4-11.0)
[2023-06-11 08:52] LABS: ALB/GLOB Ratio 0.9 RATIO (0.9-2.4); AST(SGOT) 18 U/L (15-37); Alanine Aminotransfer ALT/SGPT 30 U/L (13-56); Albumin, Serum 3.4 g/dL (3.2-5.0); Alkaline Phosphatase 110 U/L (45-117); Anion Gap 5 (5-15); BUN 15 mg/dL (7-18); BUN/Creat Ratio 15.3 RATIO (10-20); Calcium,Total 8.9 mg/dL (8.5-10.1); Chloride 109 mmol/L (98-107); Creatinine, Serum 0.98 mg/dL (0.55-1.02); EST Glomerular Filtration Rate 62 mL/min (>60); Est Glom Filt Rate - Afr Amer 75 mL/min (>60); Globulin 3.9 g/dL (2.2-4.2); Glucose 109 mg/dL (74-106); Potassium 3.9 mmol/L (3.5-5.1); Protein, Total 7.3 g/dL (6.4-8.2); Sodium Level 139 mmol/L (136-145)
== END | disposition home or self-care (01) ==
LOC: LAB 07:49
PROVIDERS: PCP Family Medicine; Referring Provider Internal Medicine Rheumatology; Visit Provider Internal Medicine Rheumatology
DX: M05.70 Rheumatoid arthritis with rheumatoid factor of unspecified site without organ or systems involvement (principal); Z79.899 Other long term (current) drug therapy
CPT/HCPCS: 36415; 80053; 85025

== ENCOUNTER 2023-07-16 04:09 | Emergency (ER) | payer BC, SELFPAY ==
[2023-07-16 04:09] VITALS: BP 147/79; PULSE 87; RESP 18; TEMP 36.6; O2SAT 94; BMI 27.1
--- NOTE | 2023-07-16 04:14 | ED.VIS.DYS ---
HPI History of Present Illness Chief Complaint: Asthma [facility] Medical History (Updated 07/16/23 @ 04:13 by Valentine Cuadra) Asthma Hypothyroid Rheumatoid arteritis Home Medications albuterol sulfate 90 mcg/actuation aerosol inhaler inhalation 07/16/23 [History Last Taken Unknown] amoxicillin 875 mg-potassium clavulanate 125 mg tablet 1 tab PO BID 7 days #14 tabs 07/16/23 [Rx Last Taken Unknown] duloxetine 30 mg capsule,delayed release mg PO 07/16/23 [History Last Taken Unknown] levothyroxine 112 mcg tablet mcg 07/16/23 [History Last Taken Unknown] methotrexate sodium 2.5 mg tablet mg 07/16/23 [History Last Taken Unknown] Allergy/AdvReac Type Severity Reaction Status Date / Time No Known Allergies Allergy Verified 07/16/23 04:12 Social History Smoking Status: Never smoker EXAM Physical Exam Const Vital Signs: 07/16/23 04:09 07/16/23 04:15 07/16/23 04:32 Temperature 97.9 F Temperature Source Temporal Pulse Rate 87 71 Respiratory Rate 18 12 Respiratory Effort Normal Non-Labored Respiratory Depth Normal Respiratory Pattern Normal Normal Blood Pressure 147/79 H Blood Pressure Mean 101 Pulse Ox 94 Oxygen Delivery Method Room Air Room Air 07/16/23 04:23 Temperature Temperature Source Pulse Rate Respiratory Rate Respiratory Effort Respiratory Depth Respiratory Pattern Blood Pressure Blood Pressure Mean Pulse Ox Oxygen Delivery Method Room Air MDM MDM MDM Narrative Medical decision making narrative: HISTORY OF PRESENT ILLNESS: 58-year-old female here with shortness of breath. States has history of asthma. Notes 2 to 3 days of chest tightness, congestion, postnasal drip. Denies any bleeding diathesis. Denies any fever. No history of hypertension, hyperlipidemia, type 2 diabetes. Notes she has a history of smoking but has not smoked since she was a teenager. The patient denies recent surgery in the last 4 weeks or immobilization in the last 3 days, denies previous diagnosis of DVT or PE, hemoptysis, unilateral leg swelling or malignancy with treatment the last 6 months or palliative. No estrogen use noted. REVIEW OF SYSTEMS: Pertinent positives: Shortness of breath Pertinent negatives: Bleeding diathesis, lower extremity edema PHYSICAL EXAM: Nursing triage notes reviewed, Vital signs reviewed Constitutional: please see mdm HENT: MMM Eyes: Pupils equal round and reactive to light, Extraocular muscles intact Neck: No stridor, no JVD, full neck ROM Lungs: Prolonged expiratory phase, diminished breath sounds, expiratory wheezing noted. No increased work of breathing, no conversational dyspnea, no accessory muscle use, no nasal flaring. No respiratory distress noted Heart: Regular rate and rhythm, No murmurs, No rubs and No gallops, 2+ distal pulses (radial, femoral, posterior tibial) in all extremities Abdomen: Soft, there is no tenderness, rigidity, rebound or guarding, no obvious peritoneal signs, no palpable pulsatile abdominal masses, no auscultated abdominal bruit : No CVAT Extremities: No edema Neuro: No focal neurological deficits, cranial nerves II through XII intact, 5/5 strength in all extremities. Intact sensation to light touch in all extremities, 2+ reflexes bilateral patella tendons. Normal gait. No ataxia. Skin: No rash or lesions noted MEDICAL DECISION MAKING: Chief Complaint: Shortness of breath External records reviewed: No recent [facility] imaging of the chest, no recent echocardiograms noted Factors affecting care: Asthma, rheumatoid arthritis and hypothyroidism Social determinants of health: Former smoker History obtained from others: Patient's friend Consults: none MDM Narrative: Patient is hemodynamically stable, afebrile, nontoxic-appearing I considered the following differential diagnosis: Asthma/COPD exacerbation, COVID-19, pneumonia, ACS, arrhythmia, anemia, I obtained a broad lab and imaging work-up to further elucidate etiology of patient's complaints. ALL IMAGES (IF OBTAINED) HAVE BEEN PERSONALLY REVIEWED AND INTERPRETED BY MYSELF. EKG with normal sinus rhythm, normal axis, normal normals, no STEMI CBC without leukocytosis, severe anemia, no thrombocytopenia. BMP without evidence of significant electrolyte abnormalities, no anion gap, no acute kidney injury. BNP within normal limits suggestive of no excessive myocyte stretch Troponin is negative, no evidence of myocardial ischemia Chest x-ray read by myself shows evidence of right-sided pneumonia. Amalgamation the patient's labs and images were remarkable for evidence of pneumonia. The patient was ambulated to ensure no evidence of exertional hypoxia. She ambulated with a pulse ox of 93%. There is no indication for hospitalization at this time. She was given oral Augmentin and discharged stable condition. Strict return precautions were discussed The patient and/or family, caregivers express understanding. The patient and/or family, caregivers agrees with the plan. Shared decision making: I will have a discussion with the patient and or visitors regarding risk/benefits of further testing or admission. They will be made aware of of the risk/benefits inherent in this decision they will be given the opportunity to voice understanding. Total critical care time today provided was at least 0 minutes. This excludes separately billable procedures. Critical care time (if documented) is secondary to the patient having high probability of clinically significant/life threatening deterioration in the patient's condition which required my urgent intervention. Impression: 1. Shortness of breath 2. Mild Asthma exacerbation 3. Community-acquired pneumonia Dispo: Discharge Lab Data Labs: Laboratory Results - last 24 hr 07/16/23 04:30 WBC 9.3 RBC 4.49 Hgb 13.6 Hct 42.0 MCV 93.5 MCH 30.3 MCHC 32.4 RDW Std Deviation 46.8 H RDW Coeff of Kang 13.7 Plt Count 299 MPV 10.7 Immature Gran % (Auto) 0.500 Neut % (Auto) 83.3 H Lymph % (Auto) 11.2 L [place] % (Auto) 4.5 Eos % (Auto) 0.2 Baso % (Auto) 0.3 Absolute Neuts (auto) 7.7 Absolute Lymphs (auto) 1.04 Nucleated RBC % 0 Sodium 141 Potassium 4.0 Chloride 112 H Carbon Dioxide 24.0 Anion Gap 5 BUN 12 Creatinine 0.77 Estim Creat Clear Calc 86.12 Est GFR (MDRD) Af Amer 99 Est GFR (MDRD) Non-Af 82 BUN/Creatinine Ratio 15.6 Glucose 136 H Calcium 9.0 Troponin I High Sens 22 B-Natriuretic Peptide 44.9 Radiography Diagnostic Testing: Clinical Impression(s) from Imaging Studies Chest X-Ray 07/16/23 04:22 IMPRESSION: Infiltrate within the inferior aspect of the right upper lobe, consistent with atelectasis and probable pneumonia. Electronically Signed: Faizan Manzo MD at 5:13 EDT , Discharge Plan Triage Chief Complaint: Asthma ED Provider: Adrian Decker Dx/Rx/DC Orders Instructions: ED Pneumonia (Adult) Prescriptions: New amoxicillin-pot clavulanate 875-125 mg tablet 1 tab PO BID 7 Days Qty: 14 0RF No Action methotrexate sodium 2.5 mg tablet Patient Comments: take 8 tablets by mouth every week albuterol sulfate 90 mcg/actuation HFA aerosol inhaler INHALATION Patient Comments: inhale 1 to 2 puffs every 4 hours if needed for asthma wheezing or cough levothyroxine 112 mcg tablet Patient Comments: take 1 tablet by mouth once daily duloxetine 30 mg capsule,delayed release(DR/EC) PO Patient Comments: take 1 tablet by mouth once daily Stand Alone Forms: ED Work / School Excuse Primary Care Provider: Mick Banuelos Referrals: Mick Banuelos MD [Primary Care Provider] - Activity Restrictions/Additional Instructions: Thank you for trusting us with your care today! Please take Tylenol (2 pills, 650 mg), ibuprofen (2 pills, 400 mg) every 6 hours as needed for pain and fever control. Please take antibiotics as prescribed. Please use your inhaler as needed. Please discontinue taking steroids as these may decrease your immune system response infection Please return to the emergency department if your symptoms change or worsen. Specifically develop worsening shortness of breath if you notice your pulse oximeter reads less than 92% consistently. Please follow with your primary care physician for further outpatient evaluation and management. Disposition Disposition: Home, Self Care
[2023-07-16 04:15] VITALS: O2SAT 94
--- NOTE | 2023-07-16 04:22 | RAD_ITS ---
EXAM: XR CHEST, 2 VIEWS CLINICAL INDICATION: SOB, cough, r/o PNA TECHNIQUE: Frontal and lateral views of the chest. COMPARISON: No relevant prior studies available. FINDINGS: LUNGS AND PLEURAL SPACES: A broad band of infiltrate partially silhouettes the right heart border on the frontal view and overlies the heart on the lateral view, typically indicating a right middle lobe infiltrate, but the lateral view also shows this infiltrate lies superior to the minor fissure which outlines a small RML, and this infiltrate is felt to lie inferiorly within the right upper lobe rather than within the right middle lobe. Left lung is clear. No pleural effusion or peribronchial cuffing. No edema. No pneumothorax. HEART: Unremarkable. Cardiac silhouette not enlarged. Normal pulmonary vasculature. MEDIASTINUM: Thoracic aorta is minimally elongated. BONES/JOINTS: Thoracic degenerative spurring. SOFT TISSUES: Unremarkable. RAD/Chest PA and Lateral IMPRESSION: Infiltrate within the inferior aspect of the right upper lobe, consistent with atelectasis and probable pneumonia. Electronically Signed: Faizan Manzo MD at 5:13 EDT ,
--- NOTE | 2023-07-16 04:23 | EKG12_ITS ---
Test Reason : SOB Blood Pressure : / mmHG Vent. Rate : 068 BPM Atrial Rate : 068 BPM P-R Int : 156 ms QRS Dur : 092 ms QT Int : 406 ms P-R-T Axes : 076 076 068 degrees QTc Int : 431 ms Normal sinus rhythm Normal ECG Confirmed by TRACEY MORALEZ, BONIFACIO ([id number]), television news video editor LISS JOHNSON ([id number]) on 07/17/2023 2:42:38 PM Referred By: Confirmed By:BONIFACIO WEBB MD
[2023-07-16 04:32] VITALS: PULSE 71; RESP 12
[2023-07-16] MEDS: Ipratropium/Albuterol Sulfate 3 ML AMPUL.NEB INHALATION (04:33)
[2023-07-16 04:37] LABS: Absolute Lymphocyte Count 1.04 X10^3/uL (0.83-4.51); Absolute Neutrophil Count 7.7 X10^3/uL (2.0-7.7); Basophil# 0.03 X10^3/uL; Basophil% 0.3 % (0-1); Eosinophil# 0.02 X10^3/uL; Eosinophils% 0.2 % (0-5); Hemoglobin 13.6 g/dL (12.0-15.0); Lymphocyte # 1.04 X10^3/ul (0.83-4.51); Lymphocyte % 11.2 % (19-41); Mean Corp Hgb Conc 32.4 g/dL (32-36); Mean Corpuscular Hgb 30.3 pg (27.0-32.0); Mean Corpuscular Volume 93.5 fL (81-99); Mean Platelet Vol. 10.7 fl (6.2-12.0); Monocyte# 0.42 X10^3/uL; Monocyte% 4.5 % (0-10); NRBC Flagged by Analyzer 0 % (0-5); Neutrophil # 7.73 X10^3/uL (2.7-7.7); Neutrophil % 83.3 % (47-70); Platelet Count 299 K/mm3 (150-450); RBC Distribution Width CV 13.7 % (11.6-14.6); RBC Distribution Width SD 46.8 fl (35.1-43.9); Red Blood Count 4.49 M/mm3 (4.2-5.4); White Blood Count 9.3 K/mm3 (4.4-11.0)
[2023-07-16 05:08] LABS: BNP,B-Type NATRIURETIC PEPTIDE 44.9 pg/mL (0-100)
[2023-07-16 05:10] LABS: Anion Gap 5 (5-15); BUN 12 mg/dL (7-18); BUN/Creat Ratio 15.6 RATIO (10-20); Chloride 112 mmol/L (98-107); Creatinine, Serum 0.77 mg/dL (0.55-1.02); EST Glomerular Filtration Rate 82 mL/min (>60); Est Glom Filt Rate - Afr Amer 99 mL/min (>60); Estimated Creatinine Clearance 86.12 ml/min; Glucose 136 mg/dL (74-106); Sodium Level 141 mmol/L (136-145); Troponin-I HS 22 pg/mL (3.0-54.0)
[2023-07-16] MEDS: MethylPREDNISolone 125 MG/2 ML Vial IV (05:22)
[2023-07-16 05:43] VITALS: O2SAT 93
[2023-07-16] MEDS: Amox/Clavulanate 875 MG Tablet PO (06:42)
[2023-07-16 06:56] VITALS: BP 132/67; PULSE 74; RESP 18; O2SAT 93
== END 2023-07-16 06:56 | disposition home or self-care (01) ==
PROVIDERS: Emergency Provider Emergency Medicine; PCP Family Medicine; Visit Provider Emergency Medicine
DX: J45.901 Unspecified asthma with (acute) exacerbation (principal); R06.02 Shortness of breath; J18.9 Pneumonia, unspecified organism; Z87.891 Personal history of nicotine dependence
CPT/HCPCS: 71046; 80048; 83880; 84484; 85025; 87428; 93005; 94640; 96374; 99285; A4216

== ENCOUNTER → 2023-09-03 | Outpatient (CLI) | payer BC, SELFPAY ==
[2023-09-03 16:32] LABS: Absolute Lymphocyte Count 2.99 X10^3/uL (0.83-4.51); Absolute Neutrophil Count 6.2 X10^3/uL (2.0-7.7); Basophil# 0.07 X10^3/uL; Basophil% 0.7 % (0-1); Eosinophil# 0.72 X10^3/uL; Hemoglobin 13.4 g/dL (12.0-15.0); Lymphocyte # 2.99 X10^3/ul (0.83-4.51); Lymphocyte % 28.9 % (19-41); Mean Corp Hgb Conc 31.9 g/dL (32-36); Mean Corpuscular Hgb 30.5 pg (27.0-32.0); Mean Corpuscular Volume 95.7 fL (81-99); Mean Platelet Vol. 11.8 fl (6.2-12.0); Monocyte# 0.36 X10^3/uL; Monocyte% 3.5 % (0-10); NRBC Flagged by Analyzer 0 % (0-5); Neutrophil # 6.16 X10^3/uL (2.7-7.7); Neutrophil % 59.6 % (47-70); Platelet Count 360 K/mm3 (150-450); RBC Distribution Width CV 13.7 % (11.6-14.6); RBC Distribution Width SD 48.5 fl (35.1-43.9); Red Blood Count 4.39 M/mm3 (4.2-5.4); White Blood Count 10.3 K/mm3 (4.4-11.0)
[2023-09-03 17:20] LABS: ALB/GLOB Ratio 0.9 RATIO (0.9-2.4); AST(SGOT) 53 U/L (15-37); Alanine Aminotransfer ALT/SGPT 43 U/L (13-56); Albumin, Serum 3.6 g/dL (3.2-5.0); Alkaline Phosphatase 99 U/L (45-117); Anion Gap 7 (5-15); BUN 15 mg/dL (7-18); BUN/Creat Ratio 14.6 RATIO (10-20); Chloride 108 mmol/L (98-107); Creatinine, Serum 1.03 mg/dL (0.55-1.02); EST Glomerular Filtration Rate 58 mL/min (>60); Est Glom Filt Rate - Afr Amer 71 mL/min (>60); Glucose 105 mg/dL (74-106); Potassium 3.8 mmol/L (3.5-5.1); Protein, Total 7.6 g/dL (6.4-8.2); Sodium Level 140 mmol/L (136-145)
== END | disposition home or self-care (01) ==
LOC: LAB 15:13
PROVIDERS: PCP Family Medicine; Referring Provider Internal Medicine Rheumatology; Visit Provider Internal Medicine Rheumatology
DX: M05.70 Rheumatoid arthritis with rheumatoid factor of unspecified site without organ or systems involvement (principal); Z79.899 Other long term (current) drug therapy
CPT/HCPCS: 36415; 80053; 85025

== ENCOUNTER → 2023-09-24 | Outpatient (CLI) | payer BC, SELFPAY ==
--- NOTE | 2023-09-24 07:18 | US_ITS ---
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 COMPARISON: No relevant prior comparison study available FINDINGS: LIVER: The liver is heterogeneous in echotexture measuring about 17 cm in length. The portal vein is patent with normal hepatopedal flow. No focal hepatic lesion. There is no free fluid. GALLBLADDER AND BILIARY TREE: No shadowing gallstone, pericholecystic fluid or gallbladder wall thickening is demonstrated. The gallbladder wall measures 3 mm. The proximal common bile duct measures 4 mm, which is within normal limits for the patient''s age. Sonographic Bunn''s sign: Negative. PANCREAS: No focal abnormality is demonstrated in the last portions of the pancreas. No pancreatic ductal dilatation. Right kidney: The right kidney measures 11.3 cm in length. The renal cortex measures 1.5 cm. There is a 1.5 cm cyst in the midpole of the right kidney. There is 6 mm echogenic shadow likely representing nonobstructing stone. There is no evidence of hydronephrosis. US/Liver IMPRESSION: 1. Mildly heterogeneous liver which may reflect fatty infiltration or hepatocellular disease. 2. No evidence of gallstones. 3. Small right renal cyst and small nonobstructing right renal stone. Electronically Signed: Bigg Yang MD at 14:06 EST ,
== END | disposition home or self-care (01) ==
PROVIDERS: PCP Family Medicine; Referring Provider Internal Medicine Rheumatology; Visit Provider Internal Medicine Rheumatology
DX: M05.741 Rheumatoid arthritis with rheumatoid factor of right hand without organ or systems involvement (principal); Z79.899 Other long term (current) drug therapy
CPT/HCPCS: 76705

== ENCOUNTER → 2023-10-16 | Outpatient (CLI) | payer BC, SELFPAY ==
--- OUTSIDE RECORDS SUMMARY | 2023-10-16 11:27 | XMS RPT_ITS | CCD ---
Author Name Unknown Address [address] [place] [address] Organization [facility] Care Team Providers Care [place] [facility] Name Role Phone Prudencio Gary Unavailable Unavailable Mickey Banuelos MD Primary Care Provider Mickey Banuelos MD Primary Care Provider [phone] Mickey Banuelos MD Primary Care Provider [phone] MICKEY BANUELOS Primary Care Unavailable JONATHAN ALVES Referring Unavailable MICKEY BANUELOS Primary Care Unavailable JONATHAN ALVES Attending Unavailable MICKEY BANUELOS Primary Care Unavailable MICKEY BANUELOS Primary Care Unavailable Allergies Allergy Classification Reported Allergen(s) Allergy Type Date of Onset Reaction(s) Facility (7 sources) Grass pollen; Translations: [GRASS POLLEN] Propensity to adverse reactions 05-05-2002 [facility] Work Phone (unformatted) : [phone] (7 sources) House dust mite; Translations: [DUST MITES] Propensity to adverse reactions 05-05-2002 [facility] Work Phone (unformatted) : [phone] Medications Current Medications Medication Drug Class(es) Dates Sig (Normalized) Sig (Original) predniSONE 10 mg oral tablet (7 sources) Start: 07-15-2023 End: 07-24-2023 predniSONE (DELTASONE) 10 mg tablet Indications: Acute cough Take 4 tabs daily for 3 days, then 2 tabs daily for 3 days, then 1 tab daily for 3 days with food. 21 tablet 0 07/15/2023 07/24/2023 Active Completed/Discontinued Medications Medication Drug Class(es) Dates Sig (Normalized) Sig (Original) breath-actuated 120 actuat beclomethasone dipropionate 0.08 mg/actuat metered dose inhaler (6 sources) Corticosteroid Start: 05-02-2018 QVAR REDIHALER 80 mcg/actuation inhaler budesonide/formoterol fumarate (SYMBICORT INHALATION) (3 sources) budesonide/formo te rol fumarate (SYMBICORT INHALATION) Inhale as instructed. 0 Active Problems Active Problems Problem Classification Problem Date Documented Da te Episodic/Chronic Influenza (1 source) Influenza-like illness; Translations: [Influenza due to unidentified influenza virus with other respiratory manifestations] Episodic Other lower respiratory disease (1 source) Cough; Translations: [Acute cough] 07-15-2023 Episodic Other screening for suspected conditions (not mental disorders or infectious disease) (5 sources) Encounter for screening mammogram for malignant neoplasm of breast; Translations: [Inconclusive mammogram] Onset: 01-30-2023 02-15-2023 Episodic Other upper respiratory infections (1 source) Acute upper respiratory infection; Translations: [Acute upper respiratory infection, unspecified] 07-15-2023 Episodic Rheumatoid arthritis and related disease (6 sources) Rheumatoid arthritis; Translations: [Rheumatoid arthritis with rheumatoid factor of unspecified site without organ or systems involvement] Onset: 04-15-2018 05-14-2018 Chronic Thyroid disorders (6 sources) Acquired hypothyroidism; Translations: [Hypothyroidism, unspecified] Onset: 03-14-2019 03-14-2019 Chronic Past or Other Problems Problem Classification Problem Date Documented Date Episodic/Chronic Immunizations and screening for infectious disease (1 source) Encounter for screening for human papillomavirus (HPV); Translations: [Special screening examination for human papillomavirus (HPV)] Onset: 01-30-2023 Episodic Results Test Name Value Interpretation Reference Range Facil ity Vital Signs Date Time Vital Sign Value Performing Clinician Faci litnadia 07-15-2023 12:30-0400 Body temperature 98.29 [degF] Dominique Alves APRN.CNP Work Phone: [facility] 07-15-2023 12:30-0400 Body weight 85.82 kg Dominique Alves APRN.CNP Work Phone: [facility] 07-15-2023 12:30-0400 Diastolic blood pressure 82 mm[Hg] Dominique Alves APRN.CNP Work Phone: [facility] 10-01-2023 12:30-0400 Heart rate 85 /min Dominique Alves APRN.ANALOG IC DESIGN ENGINEER Work Phone: [facility] 07-15-2023 12:30-0400 Respiratory rate 20 /min Dominique Alves APRN.ANALOG IC DESIGN ENGINEER Work Phone: [facility] 07-15-2023 12:30-0400 SaO2% (BldA) [Mass fraction] 95 % Dominique Alves APRN.ANALOG IC DESIGN ENGINEER Work Phone: [facility] 07-15-2023 12:30-0400 Systolic blood pressure 120 mm[Hg] Dominique Alves APRN.ANALOG IC DESIGN ENGINEER Work Phone: [facility] 08-20-2022 10:55-0500 Body temperature 99.5 [degF] Alana Athy PA-C Work Phone: [facility] 08-20-2022 10:55-0500 Body weight 83.19 kg Alana Athy PA-C Work Phone: [facility] 08-20-2022 10:55-0500 Diastolic blood pressure 68 mm[Hg] Alana Athy PA-C Work Phone: [facility] 08-20-2022 10:55-0500 Heart rate 90 /min Alana Athy PA-C Work Phone: [facility] 08-20-2022 10:55-0500 Respiratory rate 20 /min Alana Athy PA-C Work Phone: [facility] 08-20-2022 10:55-0500 SaO2% (BldA) [Mass fraction] 98 % Alana Athy PA-C Work Phone: [facility] 08-20-2022 10:55-0500 Systolic blood pressure 120 mm[Hg] Alana Athy PA-C Work Phone: [facility] Encounters Encounter Date Encounter Type Care Provider Facility Start: 07-15-2023 End: 07-15-2023 ambulatory MICKEY BANUELOS Facility:[facility] Start: 07-15-2023 End: 07-15-2023 Patient encounter procedure Dominique Alves APRN.ANALOG IC DESIGN ENGINEER Work Phone: [facility] Procedures Date Procedure Procedure Detail Performing Clinician Start: 02-15-2023 End: 02-15-2023 Mammography Jonathan Alves MD Work Phone: Start: 08-18-2021 Mammography Alana Soriano PA-C Work Phone: Start: 08-14-2019 Colonoscopy Alana Soriano PA-C Work Phone: Plan of Treatment Date Care Activity Detail Author Start: 08-14-2029 Colonoscopy COLONOSCOPY [facility] Start: 08-14-2029 COLORECTAL CANCER SCREENING COLORECTAL CANCER SCREENING [facility] Start: 01-31-2028 HPV TESTING HPV TESTING [facility] Start: 01-31-2028 PAP TESTING PAP TESTING [facility] Start: 08-02-2026 HPV TESTING HPV TESTING [facility] Start: 08-02-2026 PAP TESTING PAP TESTING [facility] Start: 02-16-2024 Mammography [facility] Start: 07-15-2023 End: 07-29-2023 COVID & INFLUENZA A/B & RSV NAAT, ROUTINE COVID & INFLUENZA A/B & RSV NAAT, ROUTINE Microbiology Routine URI, acute Expected: 07/15/2023, Expires: 07/29/2023 [facility] Work Phone: Immunizations Immunization Date Immunization Notes Care Provider Fa jacob 07-01-2022 influenza virus vacc ine, unspecified formulation Dominique Alves APRN.ANALOG IC DESIGN ENGINEER Work Phone: [facility] Payers Date Payer Category Payer Unknown [employer] PPO [id number] 2021-Present [phone] [address] [place] [address] PPO [id number] 2021 Unknown [id number] Private Health Insurance [id number] Social History Date Type Detail Facility Start: [facility]20-2022 [facility] End: 08-14-1988 History of tobacco use Current smoker [facility] End: 08-14-1988 History of tobacco use Cigarette Smoker [facility] Start: 08-20-2022 End: 02-15-2023 Cigarettes smoked current (pack per day) - Reported 1 [facility] Start: 08-20-2022 Tobacco use and exposure Smoke less tobacco non-user [facility] Start: 08-20-2022 End: 01-30-2023 Alcohol intake Current drinker of alcohol (finding) [facility] Start: 04-12-2016 Alcohol Comment occ Al[facility] Start: 1965 [facility]igned At Female [facility] Start: 08-10-2022 End: 08-20-2022 Exposure to SARS-CoV-2 (event) Not sure [facility] Start: 02-15-2023 End: 07-15-2023 Tobacco use panel [facility] National Score (1-10 0), lower number is lower risk 64 [facility] Start: 06-17-2020 Gender identity Identifies as female gender (finding) [facility] Start: 06-17-2020 Sexual orientation Heterosexual (fin ding) [facility] Clinical Notes 08-20-2022 to 07-15-2023 Dominique Alves APRN.ANALOG IC DESIGN ENGINEER - 07/15/2023 12:44 PM Jim[facility] Coordinator - 02/15/2023 12:10 PM Nilda Grewal RT(R) - 02/15/2023 10:10 AM EDT Note Date & Type Note Facility 07-15-2023 Note HNO ID: [id number] Author: Dominique Alves APRN.ANALOG IC DESIGN ENGINEER Service: ? Author Type: Nurse Practitioner Type: Progress Notes Filed: 07/15/2023 12:47 PM Note Text: CC: Patient presents with: Cough: Runny nose x 2 days HPI: Kriss Moore is a 58 year old female who presents to the office with complaint of cough, nonproductive and rhinorrhea for a few days. Symptoms are worsening Associated symptoms includes wheezing. Denies fever, nausea, vomiting , and diarrhea. Treatments tried include nothing so far. with no relief of symptoms. Sick contacts: unknown. History of asthma, frequent episodes of bronchitis, chronic bronchitis, bronchiectasis or COPD: asthma Smoker: No Seasonal/environmental allergies: No The ROS is otherwise negative. The patient's pmh, medications, allergies, and past visits are reviewed. PHYSICAL EXAM: BP 120/82 Pulse 85 Temp 36.8 ?C (98.3 ?F) Resp 20 Wt 85.8 kg (189 lb 3.2 oz) LMP 04/20/2016 (Exact Date) SpO2 95% BMI 27.15 kg/m? General appearance: alert, cooperative, pleasant, in no acute distress Head: Normocephalic Eyes: EOM's intact, conjunctiva pink and moist, no icterus, sclera white, non-injected Ears: Right ear: External ear/canal- Normal, TM - clear with good landmarks. Left ear: External ear/canal- Normal, TM - clear with good landmarks Oropharynx:moist without lesions, No erythema, exudates or tonsillar hypertrophy. Heart: Negative. RRR without obvious murmur, gallop, or rubs. No ectopy. Lungs: moderate wheezing diffusely PAST MEDICAL HISTORY Diagnosis Date HYPOTHYROIDISM LGSIL on Pap smear of cervix 02/2019 Osteoarthrosis, unspecified whether generalized or localized, other specified sites knees Rheumatoid arthritis(714.0) Unspecified asthma(493.90) PAST SURGICAL HISTORY Procedure Laterality Date COLONOSCOPY FLX DX W/COLLJ SPEC WHEN PFRMD 08/14/2019 Colonoscopy INSERT INTRAUTERINE DEVICE 04/24/2016 PAST SURGICAL HISTORY OF 1991/1992 [employer] ALLERGIES Dust Mites and Grass Pollen MEDICATIONS estradiol (CLIMARA) 0.025 mg/24 hr Apply 1 Patch as directed one time a week. budesonide/formoterol fumarate (SYMBICORT INHALATION) Inhale as instructed. magnesium oxide (MAG-OX) 400 mg (241.3 mg magnesium) tablet cetirizine (ZYRTEC) 10 mg tablet folic acid 1 mg tablet levonorgestrel (MIRENA) 20 mcg/24 hr (5 years) IUD Inserted in office LEUCOVORIN CALCIUM, BULK, MISC METHOTREXATE SODIUM 2.5 MG TAB Take 8 pills once weekly levothyroxine (SYNTHROID) 100 mcg ORAL Tab Take one(1) tablet daily. duloxetine (CYMBALTA) 30 mg ORAL CpDR Take one(1) capsule daily. predniSONE (DELTASONE) 10 mg tablet Take 4 tabs daily for 3 days, then 2 tabs daily for 3 days, then 1 tab daily for 3 days with food. fluticasone propion/salmeterol (ADVAIR DISKUS INHALATION) Inhale as instructed. (Patient not taking: Reported on 01/30/2023) QVAR REDIHALER 80 mcg/actuation inhaler (Patient not taking: Reported on 01/30/2023) FAMILY HISTORY Problem Relation Age of Onset Stroke Father Heart Father Hypertension Father Hypertension Mother Cancer Maternal Grandmother ovarian Diabetes Paternal Grandmother Social History Tobacco Use Smoking status: Former Packs/day: 1.00 Years: 8.00 Additional pack years: 0.00 Total pack years: 8.00 Types: Cigarettes Quit date: 08/14/1988 Years since quittin.9 Smokeless tobacco: Never Vaping Use Vaping Use: Never used Substance Use Topics Alcohol use: Yes Comment: occ ASSESSMENT/PLAN: 1. Acute cough - ICD9: 786.2, ICD10: R05.1 (primary diagnosis) - PREDNISONE 10 MG TABLET - wheezing and asthma 2. URI, acute - ICD9: 465.9, ICD10: J06.9 Prescription instructions reviewed with patient as applicable. Potential red flag symptoms discussed with the patient. Reviewed appropriate action plan to take if red flag symptoms occur. Patient agreeable to treatment plan. Dominique Alves APRN.[facility] 07-15-2023 History of Presen t illness Narrative CC: Patient presents with: Cough: Runny nose x 2 days HPI: Kriss Moore is a 58 year old female who presents to the office with complaint of cough, nonproductive and rhinorrhea for a few days. Symptoms are worsening Associated symptoms includes wheezing. Denies fever, nausea, vomiting , and diarrhea. Treatments tried include nothing so far. with no relief of symptoms. Sick contacts: unknown. History of asthma, frequent episodes of bronchitis, chronic bronchitis, bronchiectasis or COPD: asthma Smoker: No Seasonal/environmental allergies: No The ROS is otherwise negative. The patient's pmh, medications, allergies, and past visits are reviewed. PHYSICAL EXAM: BP 120/82 Pulse 85 Temp 36.8 C (98.3 F) Resp 20 Wt 85.8 kg (189 lb 3.2 oz) LMP 04/20/2016 (Exact Date) SpO2 95% BMI 27.15 kg/m General appearance: alert, cooperative, pleasant, in no acute distress Head: Normocephalic Eyes: EOM's intact, conjunctiva pink and moist, no icterus, sclera white, non-injected Ears: Right ear: External ear/canal- Normal, TM - clear with good landmarks. Left ear: External ear/canal- Normal, TM - clear with good landmarks Oropharynx:moist without lesions, No erythema, exudates or tonsillar hypertrophy. Heart: Negative. RRR without obvious murmur, gallop, or rubs. No ectopy. Lungs: moderate wheezing diffusely PAST MEDICAL HISTORY Diagnosis Date HYPOTHYROIDISM LGSIL on Pap smear of cervix 02/2019 Osteoarthrosis, unspecified whether generalized or localized, other specified sites knees Rheumatoid arthritis(714.0) Unspecified asthma(493.90) PAST SURGICAL HISTORY Procedure Laterality Date COLONOSCOPY FLX DX W/COLLJ SPEC WHEN PFRMD 08/14/2019 Colonoscopy INSERT INTRAUTERINE DEVICE 04/24/2016 PAST SURGICAL HISTORY OF [employer] ALLERGIES Dust Mites and Grass Pollen MEDICATIONS estradiol (CLIMARA) 0.025 mg/24 hr Apply 1 Patch as directed one time a week. budesonide/formoterol fumarate (SYMBICORT INHALATION) Inhale as instructed. magnesium oxide (MAG-OX) 400 mg (241.3 mg magnesium) tablet cetirizine (ZYRTEC) 10 mg tablet folic acid 1 mg tablet levonorgestrel (MIRENA) 20 mcg/24 hr (5 years) IUD Inserted in office LEUCOVORIN CALCIUM, BULK, MISC METHOTREXATE SODIUM 2.5 MG TAB Take 8 pills once weekly levothyroxine (SYNTHROID) 100 mcg ORAL Tab Take one(1) tablet daily. duloxetine (CYMBALTA) 30 mg ORAL CpDR Take one(1) capsule daily. predniSONE (DELTASONE) 10 mg tablet Take 4 tabs daily for 3 days, then 2 tabs daily for 3 days, then 1 tab daily for 3 days with food. fluticasone propion/salmeterol (ADVAIR DISKUS INHALATION) Inhale as instructed. (Patient not taking: Reported on 01/30/2023) QVAR REDIHALER 80 mcg/actuation inhaler (Patient not taking: Reported on 01/30/2023) FAMILY HISTORY Problem Relation Age of Onset Stroke Father Heart Father Hypertension Father Hypertension Mother Cancer Maternal Grandmother ovarian Diabetes Paternal Grandmother Social History Tobacco Use Smoking status: Former Packs/day: 1.00 Years: 8.00 Additional pack years: 0.00 Total pack years: 8.00 Types: Cigarettes Quit date: 08/14/1988 Years since quittin.9 Smokeless tobacco: Never Vaping Use Vaping Use: Never used Substance Use Topics Alcohol use: Yes Comment: occ ASSESSMENT/PLAN: 1. Acute cough - ICD9: 786.2, ICD10: R05.1 (primary diagnosis) - PREDNISONE 10 MG TABLET - wheezing and asthma 2. URI, acute - ICD9: 465.9, ICD10: J06.9 Prescription instructions reviewed with patient as applicable. Potential red flag symptoms discussed with the patient. Reviewed appropriate action plan to take if red flag symptoms occur. Patient agreeable to treatment plan. Dominique Alves APRN.AFUA documented in this encounter [facility] 02-15-2023 Miscellaneous Notes February 16, 2023 PID: [id number] Kriss Moore [address] [place] [address] Dear Ms. Moore, We are pleased to inform you that the results of your recent breast imaging exam on 02/15/2023 are normal. Early detection of cancer is very important. We also understand recommendations regarding breast cancer screening are controversial. Please discuss with your primary care provider which strategy is best for you and whether a mammogram is right for you. Your imaging studies and report will be kept on file at [facility] as part of your permanent medical record and are available for your continuing care. Thank you for allowing us to help in meeting your health care needs. Sincerely, Dr. Winters Interpreting Radiologist [facility] (Normal over 40) documented in this encounter [facility] 02-15-2023 Note HNO ID: [id number] Author: RT Olaf(R) Service: ? Author Type: Technologist Type: Progress Notes Filed: 02/15/2023 10:19 AM Note Text: Radiology Service Progress Note PATIENT NAME: Kriss Moore DATE OF SERVICE: February 15, 2023 TIME: 10:19 AM PATIENT IDENTITY VERIFICATION COMPLETED USING TWO (2) IDENTIFIERS: Name and Date of confirmed by patient verbally. FALL SCREENING: Has the patient had 2 falls in the last year or 1 fall with injury or currently using an Ambulatory Assistive Device (Walker, Cane, Wheelchair, Crutches, etc.)? No PATIENT GENDER DATA: Female. status: : No status: NO. PATIENT RELEVANT IMPLANT DATA REVIEWED: Not Applicable RADIOLOGY DEPARTMENT: Mammography PERIPHERAL IV DATA: Not applicable SIGNED BY: RT Olaf(R) February 15, 2023 10:19 AM [facility] 02-15-2023 History of Presen t illness Narrative Radiology Service Progress Note PATIENT NAME: Kriss Moore DATE OF SERVICE: February 15, 2023 TIME: 10:19 AM PATIENT IDENTITY VERIFICATION COMPLETED USING TWO (2) IDENTIFIERS: Name and Date of confirmed by patient verbally. FALL SCREENING: Has the patient had 2 falls in the last year or 1 fall with injury or currently using an Ambulatory Assistive Device (Walker, Cane, Wheelchair, Crutches, etc.)? No PATIENT GENDER DATA: Female. status: : No status: NO. PATIENT RELEVANT IMPLANT DATA REVIEWED: Not Applicable RADIOLOGY DEPARTMENT: Mammography PERIPHERAL IV DATA: Not applicable SIGNED BY: RT Olaf(R) February 15, 2023 10:19 AM documented in this encounter [facility] 01-30-2023 Note HNO ID: [id number] Author: Jonathan Alves MD Service: ? Author Type: Physician Type: Progress Notes Filed: 01/30/2023 5:06 PM Note Text: Nutrition Representative offered: Patient declines. Kriss is a 57 year old who presents for an annual gynecologic exam. She reports menopause concerns AND is interested in HRT. Patient feels like her depression is worse and is dealing with a lot of stress. Her hot flashes are less than before. Also she has vaginal dryness AND isn't really likely the yuvafem. Postmenopausal: Yes AND Mirena IUD HRT use: No. Last Pap: 08/12/2021 ASCUS HPV: 08/04/2021 negative History of abnormal pap: Yes - LSIL 2018 (negative hpv), colpo negative Last mammogram: 2020 normal OB History T2 L2 SAB0 IAB2 Ectopic0 Multiple0 Live Births0 Comment: 2 vaginal deliveries [employer] History LMP: 04/20/2016 (Exact Date), IUD Age at Menarche: Age at First : Age at Menopause: [employer] History Comments: Sexual Activity: Yes; Male Contraception: Condom, I.U.D. PAST MEDICAL HISTORY Diagnosis Date HYPOTHYROIDISM LGSIL on Pap smear of cervix 02/2019 Osteoarthrosis, unspecified whether generalized or localized, other specified sites knees Rheumatoid arthritis(714.0) Unspecified asthma(493.90) PAST SURGICAL HISTORY Procedure Laterality Date COLONOSCOPY FLX DX W/COLLJ SPEC WHEN PFRMD 08/14/2019 Colonoscopy INSERT INTRAUTERINE DEVICE 04/24/2016 PAST SURGICAL HISTORY OF 1991/1992 [employer] FAMILY HISTORY Problem Relation Age of Onset Stroke Father Heart Father Hypertension Father Hypertension Mother Cancer Maternal Grandmother ovarian Diabetes Paternal Grandmother SOCIAL HISTORY Social History Tobacco Use Smoking status: Former Packs/day: 1.00 Years: 8.00 Pack years: 8.00 Types: Cigarettes Quit date: 08/14/1988 Years since quittin.4 Smokeless tobacco: Never Vaping Use Vaping Use: Never used Substance Use Topics Alcohol use: Yes Comment: occ REVIEW OF SYSTEMS Abdomen: No abdominal pain, nausea, vomiting, diarrhea, or constipation. No bloating, early satiety, indigestion, or increased flatulence. Bladder: No dysuria, gross hematuria, urinary frequency, urinary urgency, or incontinence Breast: No breast lumps, nipple d/c, overlying skin changes, redness or skin retraction Allergies and current medication updated:Yes EXAM: BP 114/82 Ht 5' 10 (1.78m) Wt 190 lb 6.4 oz (86.4kg) LMP 04/20/2016 BMI 27.32 kg/(m2). GENERAL: pleasant, female in no apparent distress BREAST: soft, non-tender, symmetric, no dominant mass, normal nipple-areolar complex, no lymphadenopathy, and no nipple discharge CHEST: Normal inspiratory effort ABDOMEN: soft, non-tender, and no masses PELVIC: external genitalia normal, no vulvar lesions, no cervical lesions, normal appearing perineal body and perianal region BIMANUAL: uterus normal size, shape and consistency, no adnexal masses, and non-tender; IUD strings extruding from cervix RECTOVAGINAL: rectovaginal exam negative for any masses or nodularity. NEURO: alert and oriented x3,exam grossly non-focal EXTREMITIES: normal ASSESSMENT/PLAN: 1) Health maintenance: Pap done with HPV. Mammogram ordered Nutrition, exercise and routine health maintenance exams reviewed. Colon cancer screening: up to date with screening 2) Follow up one year or sooner as needed 3) Menopausal symptoms - discussed R/B/A of treatment options including increasing the cymbalta and/or changing the vaginal estrogen. Patient wishes to proceed with HRT. Use reviewed AND patient has Mirena IUD for endometrial protection. Rx climara given. Patient will message in 1 month how she is feeling and also will message a BP. All questions answered AND patient agrees with plan. Jonathan Alves MD [facility] 01-19-2023 Miscellaneous Notes Last annual with KJ 08/02/21. [facility]42 message sent to patient to schedule annual. Requested Prescriptions Pending Prescriptions Disp Refills Estradiol (YUVAFEM) 10 mcg vaginal tablet 8 tablet 1 Sig: Use vaginally 2 times per week Ambika Olea RN documented in this encounter [facility] 08-20-2022 Influenza virus A and B RNA and SARS-CoV-2 (COVID-19) N gene panel JAHAIRA+probe (Resp) COVID 19 RESULT: SARS-CoV-2 (Agent of COVID-19) Not Detected by RT-PCR or equivalent method. ten [id number] (RENATO)_EUA This test was developed and its performance characteristics determined by [facility]'s [facility] [place]. This test has been authorized by FDA under an Emergency Use Authorization (EUA). This test has been validated in accordance with the FDA's Guidance Document Policy for Diagnostics Testing in Laboratories Certified to Perform High Complexity Testing under CLIA prior to Emergency use Authorization for Coronavirus Disease 2019 during the Public Health Emergency issued on December 13, 2019. Test performed by [facility], [facility] [place], [address] [place], [place] [address]. INFLUENZA A PCR: Positive for Influenza A by RT-PCR INFLUENZA B PCR: Negative for Influenza B by RT-PCR [facility] Acute cough- Primary URI, acute Acute upper respiratory infections of unspecified site documented in this [facility] Diagnosis Encounter for screening mammogram for malignant neoplasm of breast Other screening mammogram Dense breasts Inconclusive mammogram documented in this encounter [facility] for referral (narrative)* Diagnostic Procedure Only (Routine) - Closed Specialty Diagnoses / Procedures Referred By Jane schmitz Referred To Contact [facility] Diagnoses Encounter for screening mammogram for malignant neoplasm of breast Dense breasts Procedures MATHEW SCREENING W KRISHNA SCREENING DIGITAL BREAST TOMOSYNTHESIS BI SCREENING MAMMOGRAPHY BI 2-VIEW BREAST INC Jonathan Short MD [address] [place] [address] [place] [address] Referral ID Status Reason Start Date Expiration Date V isits Requested Visits Authorized [id number] Closed Auto-Generate d Referral 01/30/2023 02/29/2024 1 1 [facility] for visit Narrative* Diagnostic Procedure Only (Routine) - Closed Specialty Diagnoses / Procedures Referred By Jane schmitz Referred To Contact [facility] Diagnoses Encounter for screening mammogram for malignant neoplasm of breast Dense breasts Procedures MATHEW SCREENING W KRISHNA SCREENING DIGITAL BREAST TOMOSYNTHESIS BI SCREENING MAMMOGRAPHY BI 2-VIEW BREAST INC Jonathan Short MD [address] [place] [address] [facility] [id number] [place] [address] Referral ID Status Reason Start Date Expiration Date V isits Requested Visits Authorized [id number] Closed Auto-Generate d Referral 01/30/2023 02/29/2024 1 1 [facility] Summary Purpose Family History No Family History Records FoundNo Family History Records FoundNo Family History Records Found Advance Directives No Advanced Directives Records FoundNo Advanced Directives Records FoundNo Advanced Directives Records Found Health Concerns Infection Onset Date Last Indicated Resolved Time COVID-19 Rule-Out 08/20/2022 08/20/2022 Infection Onset Date Last Indicated Resolved Time COVID-19 Rule-Out 07/15/2023 07/15/2023 Additional Source Comments INFORMATION SOURCE (unrecogn ized section and content) DATE CREATED AUTHOR AUTHOR'S ORGANIZ ATION 06/09/2018 [facility] DATE CREATED AUTHOR AUTHOR'S ORGANIZ ATION 07/20/2023 [facility] Source Comments (unrecognize d section and content) In the event this informatio n is protected by the Federal Confidentiality of Alcohol and Drug Abuse Patient Records regulations: The Federal rules restrict any use of the information to criminally investigate or prosecute any alcohol or drug abuse patient.[facility] the event this information is protected by the Federal Confidentiality of Alcohol and Drug Abuse Patient Records regulations: The Federal rules restrict any use of the information to criminally investigate or prosecute any alcohol or drug abuse patient.[facility] the event this information is protected by the Federal Confidentiality of Alcohol and Drug Abuse Patient Records regulations: The Federal rules restrict any use of the information to criminally investigate or prosecute any alcohol or drug abuse patient.[facility] the event this information is protected by the Federal Confidentiality of Alcohol and Drug Abuse Patient Records regulations: The Federal rules restrict any use of the information to criminally investigate or prosecute any alcohol or drug abuse patient.[facility] the event this information is protected by the Federal Confidentiality of Alcohol and Drug Abuse Patient Records regulations: The Federal rules restrict any use of the information to criminally investigate or prosecute any alcohol or drug abuse patient.[facility] the event this information is protected by the Federal Confidentiality of Alcohol and Drug Abuse Patient Records regulations: The Federal rules restrict any use of the information to criminally investigate or prosecute any alcohol or drug abuse patient.[facility] Reason for Visit (unrecogniz ed section and content) Reason Onset Date Comments Refill Request 01/19/2023 Reason Comments Cough Runny nose x 2 days Care Teams (unrecognized sec tion and content) Overedge Sewer Relationship Specialty Start Date End Date Mickey Banuelos MD PCP - [facility] Medicine 10/28/15 Overedge Sewer Relationship Specialty Start Date End Date Mickey Banuelos MD PCP - [facility] 10/28/15 Overedge Sewer Relationship Specialty Start Date End Date Mickey Banuelos MD PCP - [facility] 10/28/15 [employer]veredge Sewer Relationship Specialty Start Date End Date Mickey Banuelos MD PCP - [facility] 10/28/15 Overedge Sewer Relationship Specialty Start Date End Date Mickey Banuelos MD [facility] - [facility] 10/28/15 FOR RECORDS PERTAINING TO PATIENTS WHO ARE OR HAVE BEEN ENROLLED IN A CHEMICAL DEPENDENCY/SUBSTANCEABUSE PROGRAM, SOME INFORMATION MAY BE OMITTED. This clinical summary was aggregated from multiple sources. Caution should be exercised in using it in the provision of clinical care. This summary normalizes information from multiple sources, and as a consequence, information in this document may materially change the coding, format and clinical context of patient data. In addition, data may be omitted in some cases. CLINICAL DECISIONS SHOULD BE BASED ON THE PRIMARY CLINICAL RECORDS. [facility] [employer] [facility]. provides no warranty or guarantee of the accuracy or completeness of information in this document.
[2023-10-16 11:58] LABS: ALB/GLOB Ratio 0.8 RATIO (0.9-2.4); AST(SGOT) 17 U/L (15-37); Alanine Aminotransfer ALT/SGPT 20 U/L (13-56); Albumin, Serum 3.4 g/dL (3.2-5.0); Alkaline Phosphatase 92 U/L (45-117); Anion Gap 4 (5-15); BUN 15 mg/dL (7-18); BUN/Creat Ratio 14.7 RATIO (10-20); Calcium,Total 9.7 mg/dL (8.5-10.1); Chloride 110 mmol/L (98-107); Creatinine, Serum 1.02 mg/dL (0.55-1.02); EST Glomerular Filtration Rate 59 mL/min (>60); Est Glom Filt Rate - Afr Amer 71 mL/min (>60); Globulin 4.2 g/dL (2.2-4.2); Glucose 108 mg/dL (74-106); Potassium 4.2 mmol/L (3.5-5.1); Protein, Total 7.6 g/dL (6.4-8.2); Sodium Level 139 mmol/L (136-145)
== END | disposition home or self-care (01) ==
LOC: LAB 10:30
PROVIDERS: PCP Family Medicine; Referring Provider Internal Medicine Rheumatology; Visit Provider Internal Medicine Rheumatology
DX: M05.741 Rheumatoid arthritis with rheumatoid factor of right hand without organ or systems involvement (principal); Z79.899 Other long term (current) drug therapy
CPT/HCPCS: 36415; 80053

== ENCOUNTER → 2023-11-07 | Outpatient (CLI) | payer BC, SELFPAY ==
--- NOTE | 2023-11-07 13:55 | RAD_ITS ---
INDICATION: SINUSITIS EXAMINATION/TECHNIQUE: X-RAY - XR Sinuses Paranasal Min 3 Views COMPARISON: None. FINDINGS: There is no significant mucosal thickening. There are no air-fluid levels. The regional bones are grossly intact. RAD/Sinuses min 3 Views IMPRESSION: Negative sinus series. If high clinical concern for sinus pathology, recommend CT. Electronically Signed: Tyler Plasencia MD at 0:05 EST ,
[2023-11-07 14:19] LABS: Absolute Lymphocyte Count 1.24 X10^3/uL (0.83-4.51); Absolute Neutrophil Count 5.7 X10^3/uL (2.0-7.7); Basophil# 0.03 X10^3/uL; Basophil% 0.4 % (0-1); Eosinophil# 0.02 X10^3/uL; Eosinophils% 0.3 % (0-5); Hematocrit 42.2 % (37-47); Hemoglobin 13.6 g/dL (12.0-15.0); Lymphocyte # 1.24 X10^3/ul (0.83-4.51); Lymphocyte % 17.4 % (19-41); Mean Corp Hgb Conc 32.2 g/dL (32-36); Mean Corpuscular Hgb 29.6 pg (27.0-32.0); Mean Corpuscular Volume 91.7 fL (81-99); Monocyte# 0.12 X10^3/uL; Monocyte% 1.7 % (0-10); NRBC Flagged by Analyzer 0 % (0-5); Neutrophil # 5.71 X10^3/uL (2.7-7.7); Neutrophil % 79.9 % (47-70); Platelet Count 387 K/mm3 (150-450); RBC Distribution Width CV 13.2 % (11.6-14.6); RBC Distribution Width SD 43.9 fl (35.1-43.9); White Blood Count 7.1 K/mm3 (4.4-11.0)
[2023-11-07 15:13] LABS: ALB/GLOB Ratio 0.9 RATIO (0.9-2.4); AST(SGOT) 15 U/L (15-37); Alanine Aminotransfer ALT/SGPT 26 U/L (13-56); Albumin, Serum 3.7 g/dL (3.2-5.0); Alkaline Phosphatase 88 U/L (45-117); Anion Gap 3 (5-15); BUN 13 mg/dL (7-18); BUN/Creat Ratio 14.2 RATIO (10-20); Calcium,Total 10.4 mg/dL (8.5-10.1); Chloride 108 mmol/L (98-107); Creatinine, Serum 0.92 mg/dL (0.55-1.02); EST Glomerular Filtration Rate 67 mL/min (>60); Est Glom Filt Rate - Afr Amer 81 mL/min (>60); Globulin 4.3 g/dL (2.2-4.2); Glucose 108 mg/dL (74-106); Potassium 4.2 mmol/L (3.5-5.1); Sodium Level 135 mmol/L (136-145)
[2023-11-12 11:08] LABS: Alternaria alternata <0.10 kU/L (Class 0); Aspergillus fumigatus <0.10 kU/L (Class 0); Beef <0.10 kU/L (Class 0); Bermuda Grass 1.17 kU/L (Class II); Bluegrass, Kentucky 4.82 kU/L (Class IV); Cedar, Mountain 0.25 kU/L (Class 0/I); Chocolate <0.10 kU/L (Class 0); Cladosporium herbarum <0.10 kU/L (Class 0); Cockroach, American 0.15 kU/L (Class 0/I); Codfish <0.10 kU/L (Class 0); Corn 0.14 kU/L (Class 0/I); Dog Epithelia 1.88 kU/L (Class III); Egg, Whole 0.21 kU/L (Class 0/I); Elm, American White 0.72 kU/L (Class II); Johnson Grass 2.07 kU/L (Class III); Maple/Box Elder 1.07 kU/L (Class II); Milk (Cow) 0.16 kU/L (Class 0/I); Mucor racemosus <0.10 kU/L (Class 0); Mugwort 0.12 kU/L (Class 0/I); Mulberry, White <0.10 kU/L (Class 0); Mussels <0.10 kU/L (Class 0); Nettle <0.10 kU/L (Class 0); Oak, White 4.14 kU/L (Class IV); Peanut 0.73 kU/L (Class II); Penicillium chrysogen <0.10 kU/L (Class 0); Pigweed, Rough 0.15 kU/L (Class 0/I); Plantain, English 0.16 kU/L (Class 0/I); Pork <0.10 kU/L (Class 0); Salmon <0.10 kU/L (Class 0); Sheep Sorrel(Dock) <0.10 kU/L (Class 0); Shrimp 0.28 kU/L (Class 0/I); Soybean <0.10 kU/L (Class 0); Stemphylium herbarum <0.10 kU/L (Class 0); Sweet Gum 0.68 kU/L (Class II); Sycamore, American <0.10 kU/L (Class 0); Tuna <0.10 kU/L (Class 0); Wheat <0.10 kU/L (Class 0)
== END | disposition home or self-care (01) ==
PROVIDERS: Internal Medicine Rheumatology; PCP Family Medicine; Referring Provider Family Medicine; Visit Provider Family Medicine
DX: M05.741 Rheumatoid arthritis with rheumatoid factor of right hand without organ or systems involvement (principal); M17.0 Bilateral primary osteoarthritis of knee; M47.892 Other spondylosis, cervical region; F32.89 Other specified depressive episodes; E03.9 Hypothyroidism, unspecified; K76.0 Fatty (change of) liver, not elsewhere classified; J30.9 Allergic rhinitis, unspecified; Z79.899 Other long term (current) drug therapy
CPT/HCPCS: 36415; 70220; 80053; 85025; 86003; 86005

== ENCOUNTER → 2024-02-05 | Outpatient (CLI) | payer BC, SELFPAY ==
[2024-02-05 08:05] LABS: ALB/GLOB Ratio 0.8 RATIO (0.9-2.4); AST(SGOT) 17 U/L (15-37); Alanine Aminotransfer ALT/SGPT 22 U/L (13-56); Albumin, Serum 3.3 g/dL (3.2-5.0); Alkaline Phosphatase 90 U/L (45-117); Anion Gap 4 (5-15); BUN 15 mg/dL (7-18); BUN/Creat Ratio 14.4 RATIO (10-20); Chloride 110 mmol/L (98-107); Creatinine, Serum 1.04 mg/dL (0.55-1.02); EST Glomerular Filtration Rate 58 mL/min (>60); Est Glom Filt Rate - Afr Amer 70 mL/min (>60); Glucose 108 mg/dL (74-106); Potassium 4.2 mmol/L (3.5-5.1); Protein, Total 7.3 g/dL (6.4-8.2); Sodium Level 140 mmol/L (136-145)
[2024-02-05 08:26] LABS: Absolute Lymphocyte Count 2.85 X10^3/uL (0.83-4.51); Absolute Neutrophil Count 2.9 X10^3/uL (2.0-7.7); Basophil# 0.07 X10^3/uL; Eosinophil# 0.72 X10^3/uL; Eosinophils% 10.4 % (0-5); Hemoglobin 13.2 g/dL (12.0-15.0); Lymphocyte # 2.85 X10^3/ul (0.83-4.51); Lymphocyte % 41.1 % (19-41); Mean Corp Hgb Conc 32.2 g/dL (32-36); Mean Corpuscular Hgb 30.3 pg (27.0-32.0); Mean Corpuscular Volume 94.3 fL (81-99); Mean Platelet Vol. 11.2 fl (6.2-12.0); Monocyte# 0.34 X10^3/uL; Monocyte% 4.9 % (0-10); NRBC Flagged by Analyzer 0 % (0-5); Neutrophil # 2.94 X10^3/uL (2.7-7.7); Neutrophil % 42.5 % (47-70); Platelet Count 373 K/mm3 (150-450); RBC Distribution Width CV 13.4 % (11.6-14.6); RBC Distribution Width SD 46.3 fl (35.1-43.9); Red Blood Count 4.35 M/mm3 (4.2-5.4); White Blood Count 6.9 K/mm3 (4.4-11.0)
== END | disposition home or self-care (01) ==
PROVIDERS: PCP Family Medicine; Referring Provider Internal Medicine Rheumatology; Visit Provider Internal Medicine Rheumatology
DX: M05.741 Rheumatoid arthritis with rheumatoid factor of right hand without organ or systems involvement (principal); M17.0 Bilateral primary osteoarthritis of knee; M47.892 Other spondylosis, cervical region; F32.89 Other specified depressive episodes; E03.9 Hypothyroidism, unspecified; K76.0 Fatty (change of) liver, not elsewhere classified; Z79.899 Other long term (current) drug therapy
CPT/HCPCS: 36415; 80053; 85025

== ENCOUNTER → 2024-04-28 | Outpatient (CLI) | payer BC, SELFPAY ==
[2024-04-28 16:22] LABS: Absolute Lymphocyte Count 3.15 X10^3/uL (0.83-4.51); Basophil# 0.08 X10^3/uL; Basophil% 0.8 % (0-1); Eosinophil# 0.68 X10^3/uL; Eosinophils% 6.5 % (0-5); Hemoglobin 13.4 g/dL (12.0-15.0); Lymphocyte # 3.15 X10^3/ul (0.83-4.51); Lymphocyte % 30.2 % (19-41); Mean Corp Hgb Conc 32.7 g/dL (32-36); Mean Corpuscular Volume 91.9 fL (81-99); Mean Platelet Vol. 11.1 fl (6.2-12.0); Monocyte# 0.52 X10^3/uL; NRBC Flagged by Analyzer 0 % (0-5); Neutrophil # 5.97 X10^3/uL (2.7-7.7); Neutrophil % 57.2 % (47-70); Platelet Count 365 K/mm3 (150-450); RBC Distribution Width CV 13.9 % (11.6-14.6); RBC Distribution Width SD 47.3 fl (35.1-43.9); Red Blood Count 4.46 M/mm3 (4.2-5.4); White Blood Count 10.4 K/mm3 (4.4-11.0)
[2024-04-28 16:48] LABS: ALB/GLOB Ratio 0.8 RATIO (0.9-2.4); AST(SGOT) 20 U/L (15-37); Alanine Aminotransfer ALT/SGPT 30 U/L (13-56); Albumin, Serum 3.4 g/dL (3.2-5.0); Alkaline Phosphatase 113 U/L (45-117); Anion Gap 6 (5-15); BUN 14 mg/dL (7-18); Calcium,Total 9.5 mg/dL (8.5-10.1); Chloride 109 mmol/L (98-107); EST Glomerular Filtration Rate 60 mL/min (>60); Est Glom Filt Rate - Afr Amer 73 mL/min (>60); Globulin 4.2 g/dL (2.2-4.2); Glucose 95 mg/dL (74-106); Protein, Total 7.6 g/dL (6.4-8.2); Sodium Level 140 mmol/L (136-145)
== END | disposition home or self-care (01) ==
LOC: LAB 16:00
PROVIDERS: PCP Family Medicine; Referring Provider Psychiatry & Neurology Psychiatry; Visit Provider Internal Medicine Rheumatology
DX: M05.741 Rheumatoid arthritis with rheumatoid factor of right hand without organ or systems involvement (principal); Z79.899 Other long term (current) drug therapy
CPT/HCPCS: 36415; 80053; 85025

== ENCOUNTER → 2024-05-06 | Outpatient (CLI) | payer BC, SELFPAY ==
[2024-05-06 09:24] LABS: Cholesterol 194 mg/dL (200); High Density Lipoprotein 63 mg/dL; T4 Free Direct 1.14 ng/dL (0.76-1.46); Thyroid Stim Hormone (TSH) 1.51 uIU/mL (0.358-3.74); Triglycerides 127 mg/dL; Very Low Density Lipoprotein 25 mg/dL (5-40)
== END | disposition home or self-care (01) ==
LOC: LAB 08:23
PROVIDERS: PCP Family Medicine; Visit Provider Family Medicine
DX: E03.9 Hypothyroidism, unspecified (principal)
CPT/HCPCS: 36415; 80061; 84439; 84443

== ENCOUNTER → 2024-08-04 | Outpatient (CLI) | payer BC, SELFPAY ==
[2024-08-04 11:39] LABS: Absolute Lymphocyte Count 2.99 X10^3/uL (0.83-4.51); Absolute Neutrophil Count 6.3 X10^3/uL (2.0-7.7); Basophil# 0.06 X10^3/uL; Basophil% 0.6 % (0-1); Eosinophil# 0.23 X10^3/uL; Eosinophils% 2.3 % (0-5); Hematocrit 42.7 % (37-47); Hemoglobin 13.5 g/dL (12.0-15.0); Lymphocyte # 2.99 X10^3/ul (0.83-4.51); Mean Corp Hgb Conc 31.6 g/dL (32-36); Mean Corpuscular Hgb 29.5 pg (27.0-32.0); Mean Corpuscular Volume 93.2 fL (81-99); Mean Platelet Vol. 11.3 fl (6.2-12.0); NRBC Flagged by Analyzer 0 % (0-5); Neutrophil # 6.25 X10^3/uL (2.7-7.7); Neutrophil % 62.8 % (47-70); Platelet Count 333 K/mm3 (150-450); RBC Distribution Width SD 47.4 fl (35.1-43.9); Red Blood Count 4.58 M/mm3 (4.2-5.4)
[2024-08-04 12:02] LABS: AST(SGOT) 24 U/L (15-37); Alanine Aminotransfer ALT/SGPT 31 U/L (13-56); Albumin, Serum 3.9 g/dL (3.2-5.0); Alkaline Phosphatase 105 U/L (45-117); Anion Gap 6 (5-15); BUN 14 mg/dL (7-18); BUN/Creat Ratio 14.6 RATIO (10-20); Calcium,Total 9.9 mg/dL (8.5-10.1); Chloride 107 mmol/L (98-107); Creatinine, Serum 0.96 mg/dL (0.55-1.02); EST Glomerular Filtration Rate 63 mL/min (>60); Est Glom Filt Rate - Afr Amer 76 mL/min (>60); Glucose 102 mg/dL (74-106); Protein, Total 7.9 g/dL (6.4-8.2); Sodium Level 138 mmol/L (136-145)
== END | disposition home or self-care (01) ==
LOC: LAB 11:12
PROVIDERS: PCP Family Medicine; Referring Provider Internal Medicine Rheumatology; Visit Provider Internal Medicine Rheumatology
DX: M05.741 Rheumatoid arthritis with rheumatoid factor of right hand without organ or systems involvement (principal); Z79.899 Other long term (current) drug therapy; M17.0 Bilateral primary osteoarthritis of knee
CPT/HCPCS: 36415; 80053; 85025

== ENCOUNTER → 2024-11-21 | Outpatient (CLI) | payer BC, SELFPAY ==
[2024-11-21 15:06] LABS: Bacteria 0 SEEN /hpf (None Seen); Mucous, Urine 0 SEEN /hpf (<or=2+)
[2024-11-21 18:00] LABS: Color, Urine Straw (Yellow); Glucose, Dipstick Normal (Normal); Ketone-Dipstick Negative (Negative); Leukocyte Esterase-Dipstick 100 /ul (Negative); Nitrite-Dipstick Negative (Negative); Occult Blood-Urine Negative /ul (Negative); Protein-Dipstick Negative (Negative); Urine Bilirubin Dipstick Negative (Negative); Urine Clarity Clear (Clear); Urine Urobilinogen Normal (Normal)
[2024-11-21 18:45] LABS: Red Blood Cells-Urine 0 SEEN /hpf (0-5); Squamous Epithelial Cells - UA 0-5 SEEN /hpf (5-10); White Blood Cells 0-5 SEEN /hpf (0-5)
== END | disposition home or self-care (01) ==
LOC: MFPLAB 15:05
PROVIDERS: PCP Family Medicine; Referring Provider Family Medicine; Visit Provider Family Medicine
DX: N39.0 Urinary tract infection, site not specified (principal)
CPT/HCPCS: 81001; 87086; 87088

== ENCOUNTER → 2024-12-02 | Outpatient (CLI) | payer BC, SELFPAY ==
[2024-12-02 17:08] LABS: Absolute Lymphocyte Count 3.31 X10^3/uL (0.83-4.51); Absolute Neutrophil Count 5.4 X10^3/uL (2.0-7.7); Basophil# 0.07 X10^3/uL; Basophil% 0.7 % (0-1); Eosinophil# 0.48 X10^3/uL; Eosinophils% 4.9 % (0-5); Hematocrit 39.4 % (37-47); Lymphocyte # 3.31 X10^3/ul (0.83-4.51); Lymphocyte % 34.1 % (19-41); Mean Corpuscular Hgb 30.7 pg (27.0-32.0); Mean Corpuscular Volume 92.9 fL (81-99); Mean Platelet Vol. 10.8 fl (6.2-12.0); Monocyte% 4.1 % (0-10); NRBC Flagged by Analyzer 0 % (0-5); Neutrophil # 5.43 X10^3/uL (2.7-7.7); Platelet Count 403 K/mm3 (150-450); RBC Distribution Width CV 13.4 % (11.6-14.6); RBC Distribution Width SD 45.6 fl (35.1-43.9); Red Blood Count 4.24 M/mm3 (4.2-5.4); White Blood Count 9.7 K/mm3 (4.4-11.0)
[2024-12-02 17:37] LABS: ALB/GLOB Ratio 0.8 RATIO (0.9-2.4); AST(SGOT) 11 U/L (15-37); Alanine Aminotransfer ALT/SGPT 22 U/L (13-56); Albumin, Serum 3.4 g/dL (3.2-5.0); Alkaline Phosphatase 113 U/L (45-117); Anion Gap 7 (5-15); BUN 19 mg/dL (7-18); BUN/Creat Ratio 21.7 RATIO (10-20); Calcium,Total 9.7 mg/dL (8.5-10.1); Chloride 108 mmol/L (98-107); Creatinine, Serum 0.87 mg/dL (0.55-1.02); EST Glomerular Filtration Rate 70 mL/min (>60); Est Glom Filt Rate - Afr Amer 85 mL/min (>60); Globulin 4.2 g/dL (2.2-4.2); Glucose 95 mg/dL (74-106); Protein, Total 7.6 g/dL (6.4-8.2); Sodium Level 139 mmol/L (136-145)
== END | disposition home or self-care (01) ==
LOC: LAB 16:54
PROVIDERS: PCP Family Medicine; Referring Provider Internal Medicine Rheumatology; Visit Provider Internal Medicine Rheumatology
DX: M05.741 Rheumatoid arthritis with rheumatoid factor of right hand without organ or systems involvement (principal); Z79.899 Other long term (current) drug therapy
CPT/HCPCS: 36415; 80053; 85025

== ENCOUNTER → 2025-02-25 | Outpatient (CLI) | payer BC, SELFPAY ==
[2025-02-25 11:41] LABS: Absolute Lymphocyte Count 2.99 X10^3/uL (0.83-4.51); Basophil# 0.07 X10^3/uL; Basophil% 0.8 % (0-1); Eosinophil# 0.91 X10^3/uL; Eosinophils% 10.8 % (0-5); Hematocrit 40.4 % (37-47); Hemoglobin 13.2 g/dL (12.0-15.0); Lymphocyte # 2.99 X10^3/ul (0.83-4.51); Lymphocyte % 35.5 % (19-41); Mean Corp Hgb Conc 32.7 g/dL (32-36); Mean Corpuscular Hgb 30.1 pg (27.0-32.0); Mean Platelet Vol. 11.2 fl (6.2-12.0); Monocyte# 0.45 X10^3/uL; Monocyte% 5.3 % (0-10); NRBC Flagged by Analyzer 0 % (0-5); Neutrophil # 3.98 X10^3/uL (2.7-7.7); Neutrophil % 47.4 % (47-70); Platelet Count 342 K/mm3 (150-450); RBC Distribution Width CV 13.9 % (11.6-14.6); RBC Distribution Width SD 47.3 fl (35.1-43.9); Red Blood Count 4.39 M/mm3 (4.2-5.4); White Blood Count 8.4 K/mm3 (4.4-11.0)
[2025-02-25 12:59] LABS: ALB/GLOB Ratio 1.3 RATIO (0.9-2.4); AST(SGOT) 25 U/L (<=31); Alanine Aminotransfer ALT/SGPT 21 U/L (<=34); Albumin, Serum 4.2 g/dL (3.4-4.8); Alkaline Phosphatase 105 U/L (35-104); Anion Gap 10 (5-15); BUN 18 mg/dL (4-19); BUN/Creat Ratio 23.1 RATIO (10-20); Calcium,Total 9.7 mg/dL (7.6-11.0); Carbon Dioxide 21.9 mmol/L (21.0-32.0); Chloride 103 mmol/L (98-108); Creatinine, Serum 0.77 mg/dL (0.70-1.20); EST Glomerular Filtration Rate 89 (>60); Globulin 3.1 g/dL (2.2-4.2); Glucose 96 mg/dL (70-99); Potassium 4.1 mmol/L (3.3-5.1); Protein, Total 7.3 g/dL (5.9-8.4); Sodium Level 135 mmol/L (133-145); Total Bilirubin 0.56 mg/dL (0.00-1.30)
== END | disposition home or self-care (01) ==
LOC: LAB 10:47
PROVIDERS: PCP Family Medicine; Referring Provider Internal Medicine Rheumatology; Visit Provider Internal Medicine Rheumatology
DX: M05.79 Rheumatoid arthritis with rheumatoid factor of multiple sites without organ or systems involvement (principal); Z79.899 Other long term (current) drug therapy; K76.0 Fatty (change of) liver, not elsewhere classified
CPT/HCPCS: 36415; 80053; 85025

== ENCOUNTER → 2025-06-11 | Outpatient (CLI) | payer BC, SELFPAY ==
[2025-06-11 18:37] LABS: Hematocrit 38.5 % (37-47); Hemoglobin 12.8 g/dL (12.0-15.0); Immature Granulocytes Count 0.030 X10^3/uL (0.0-0.0); Mean Corp Hgb Conc 33.2 g/dL (32-36); Mean Corpuscular Volume 93.9 fL (81-99); Mean Platelet Vol. 11.7 fl (6.2-12.0); NRBC Flagged by Analyzer 0 % (0-5); Platelet Count 313 K/mm3 (150-450); RBC Distribution Width CV 14.0 % (11.6-14.6); RBC Distribution Width SD 48.0 fl (35.1-43.9); Red Blood Count 4.10 M/mm3 (4.2-5.4); White Blood Count 10.0 K/mm3 (4.4-11.0)
[2025-06-11 19:06] LABS: AST(SGOT) 21 U/L (<=31); Alanine Aminotransfer ALT/SGPT 17 U/L (<=34); Albumin, Serum 4.2 g/dL (3.4-4.8); Alkaline Phosphatase 83 U/L (35-104); Anion Gap 14 (5-15); BUN 17 mg/dL (4-19); BUN/Creat Ratio 19.6 RATIO (10-20); Calcium,Total 9.7 mg/dL (7.6-11.0); Carbon Dioxide 20.4 mmol/L (21.0-32.0); Chloride 105 mmol/L (98-108); Ferritin 164 ng/mL (22-378); Free T3 2.5 pg/mL (2.18-3.98); Globulin 3.1 g/dL (2.2-4.2); Glucose 84 mg/dL (70-99); Potassium 3.6 mmol/L (3.3-5.1)
== END | disposition home or self-care (01) ==
PROVIDERS: PCP Family Medicine; Referring Provider Family Medicine; Visit Provider Family Medicine
DX: E03.9 Hypothyroidism, unspecified (principal); L60.8 Other nail disorders
CPT/HCPCS: 36415; 80053; 82728; 84439; 84443; 84481; 85025

== ENCOUNTER → 2025-06-23 | Outpatient (CLI) | payer BC, SELFPAY ==
[2025-06-23 17:34] LABS: Hematocrit 39.6 % (37-47); Hemoglobin 13.4 g/dL (12.0-15.0); Immature Granulocytes Count 0.030 X10^3/uL (0.0-0.0); Mean Corp Hgb Conc 33.8 g/dL (32-36); Mean Corpuscular Volume 91.7 fL (81-99); Mean Platelet Vol. 11.4 fl (6.2-12.0); NRBC Flagged by Analyzer 0 % (0-5); Platelet Count 369 K/mm3 (150-450); RBC Distribution Width CV 13.5 % (11.6-14.6); RBC Distribution Width SD 45.3 fl (35.1-43.9); Red Blood Count 4.32 M/mm3 (4.2-5.4); White Blood Count 10.4 K/mm3 (4.4-11.0)
[2025-06-23 18:42] LABS: AST(SGOT) 25 U/L (<=31); Alanine Aminotransfer ALT/SGPT 19 U/L (<=34); Albumin, Serum 4.4 g/dL (3.4-4.8); Alkaline Phosphatase 97 U/L (35-104); Anion Gap 13 (5-15); BUN 17 mg/dL (4-19); BUN/Creat Ratio 18.0 RATIO (10-20); Calcium,Total 9.8 mg/dL (7.6-11.0); Carbon Dioxide 19.8 mmol/L (21.0-32.0); Chloride 104 mmol/L (98-108); Globulin 3.2 g/dL (2.2-4.2); Glucose 99 mg/dL (70-99); Potassium 4.3 mmol/L (3.3-5.1)
--- OUTSIDE RECORDS SUMMARY | 2025-06-23 22:54 | XMS RPT_ITS | CCD ---
Author Organization [facility]ini[facility] Care Team Providers Care Teacher Public Health Name Role Phone Prudencio Gary Unavailable Unavailable Dr. Mickey Banuelos Primary Care Provider Dr. Mickey Banuelos Referring Provider [phone] JAMA Carpenter Attending Provider Vin MORALEZ, Mickey العراقي Primary Care Provider [phone] Mickey Banuelos MD Primary Care Provider [phone] Vin MORALEZ, Mickey Rojas Primary Care Provider [phone] Mickey Banuelos MD Primary Care Provider [phone] Mickey Banuelos MD Primary Care Provider [phone] Vin MORALEZ, Dr. Barton Attending Provider [phone] Mickey Banuelos MD Referring Provider [phone] Juana Kaiser MD Attending Provider Dr. Juana Kaiser MD Referring Provider SVETLANA QURESHI Referring Unavailable MICKEY BANUELOS Primary Care Unavailable SVETLANA QURESHI Attending Unavailable MICKEY BANUELOS Primary Care Unavailable Vin MORALEZ, Dr. Barton Primary Care Provider Dr. Juana Kaiser MD Attending Provider Dr. Juana Kaiser MD Referring Provider Vin MORALEZ, Dr. Barton Attending Provider Dr. Mickey Banuelos MD Referring Provider [phone] Mickey Banuelos Attending Unavailable Mickey Banuelos Referring Unavailable Mickey Banuelos Primary Care Unavailable Mickey Banuelos Primary Care Unavailable Juana Kaiser Attending Unavailable Juana Kaiser Referring Unavailable Mickey Banuelos Primary Care Unavailable Juana Kaiser Attending Unavailable Juana Kaiser Referring Unavailable Mickey Banuelos Primary Care Unavailable Mickey Banuelos Attending Unavailable Mickey Banuelos Referring Unavailable Juana Kaiser Referring Unavailable Mickey Banuelos Primary Care Unavailable Juana Kaiser Attending Unavailable Allergies Allergy Classification Reported Allergen(s) Allergy Type Date of Onset Reaction(s) Facility (16 sources) Grass pollen; Translations: [GRASS POLLEN] Propensity to adverse reactions 05-05-2002 [facility] Work Phone (unformatted) : [phone] (16 sources) House dust mite; Translations: [DUST MITES] Propensity to adverse reactions 05-05-2002 [facility] Work Phone (unformatted) : [phone] Medications Current Medications Medication Drug Class(es) Dates Sig (Normalized) Sig (Original) [id number] 200 actuat albuterol 0.09 mg/actuat metered dose inhaler (8 sources) beta2-Adrenergic Agonist Start: 07-16-2023 Albuterol Sulfate 90 mcg/actuation HFA aerosol inhaler Active INHALATION July 16, 2023 12:00am Start: 07-16-2023 Albuterol Sulf ate Active INHALATION July 16, 2023 12:00am amoxicillin 875 mg / clavulanate 125 mg oral tablet (8 sources) Penicillin-class Antibacterial Start: 07-16-2023 Amoxicillin-Pot Clavulanate 875-125 mg tablet Active 1 {tbl} PO TWICE A DAY 14 7 0 July 16, 2023 12:00am Start: 07-16-2023 take 1 tablet by cb twice daily Amoxicillin-Pot Clavulanate Active 1 TABLET PO TWICE A DAY 14 July 16, 2023 12:00am budesonide/formoterol fumara te (SYMBICORT INHALATION) (12 sources) budesonide/formo terol fumarate (SYMBICORT INHALATION) Inhale as instructed. Active budesonide/formo terol fumarate (SYMBICORT INHALATION) Inhale as instructed. 0 Active Comment on above: Inhale as instructed . cetirizine hydrochloride 10 mg oral tablet (15 sources) Histamine-1 Receptor Antagonist Start: 03-14-2018 cetirizine (ZYRTEC) 10 mg tablet 0 03/14/2018 Active DULoxetine 30 mg delayed release oral capsule (20 sources) Serotonin and Norepinephrine Reuptake Inhibitor Start: 07-16-2023 Duloxetine Active MG PO July 16, 2023 12:00am Start: 07-29-2007 Duloxetine 30 mg capsule,delayed release(DR/EC) Active mg PO July 16, 2023 12:00am Comment on above: Take one(1) capsule daily. 168 hr estradiol 0.58089 mg/hr transdermal system (17 sources) Estrogen Start: 01-30-2023 End: 03-11-2026 estradiol (CLIMARA) 0.025 mg/24 hr patch Indications: Hormone replacement therapy (HRT) Apply 1 patch as directed one time a week. 12 patch 3 03/11/2025 03/11/2026 Active Start: 01-22-2023 Estradiol (YUV AFEM) 10 mcg vaginal tablet Use vaginally 2 times per week 8 tablet 1 01/22/2023 Active Start: 08-02-2021 End: 01-19-2023 Estradiol (YUVAFEM) 10 mcg v aginal tablet Use vaginally. Nightly for 2 weeks. Then 2 times per week ongoing. 20 tablet 11 08/02/2021 01/19/2023 Discontinued Comment on above: Use vaginally. Night ly for 2 weeks. Then 2 times per week ongoing. Use vaginally 2 time s per week Apply 1 Patch as dir ected one time a week. fluticasone (8 sources) Corticosteroid fluticasone prop ionate (FLONASE NASAL) Use in the nose once daily. Active fluticasone prop ionate (FLONASE NASAL) Use in the nose once daily. 0 Active Comment on above: Use in the nose once daily. folic acid 1 mg oral tablet (15 sources) Start: 2017 folic acid 1 mg tablet 03/20/2018 Active hydroxychloroquine sulfate 200 mg oral tablet (4 sources) Antimalarial, Antirheumatic Agent Start: 2024 take 2 tablets by mouth once daily hydrOXYchloroQUINE (PLAQUENIL) 200 mg tablet Take 2 tablets by mouth once daily. 02/25/2025 Active LEUCOVORIN CALCIUM, BULK, MISC (15 sources) LEUCOVORIN CALCI UM, BULK, MISC Active LEUCOVORIN CALCI UM, BULK, MISC levothyroxine sodium 0.112 mg oral tablet (20 sources) l-Thyroxine Start: 07-16-2023 Levothyroxine 112 mcg tablet Active ug July 16, 2023 12:00am Start: 07-16-2023 Levothyroxine Active MCG July 16, 2023 12:00am Start: 07-29-2007 take 1 tablet by cb th once daily levothyroxine (SYNTHROID) 100 mcg ORAL Tab Take one(1) tablet daily. 0 07/29/2007 Active Comment on above: Take one(1) tablet d aily. magnesium oxide 400 mg oral tablet (15 sources) Start: 01-13-2019 magnesium oxide (MAG-OX) 400 mg (241.3 mg magnesium) tablet 0 01/13/2019 Active Start: 01-13-2019 magnesium oxid e (MAG-OX) 400 mg (241.3 mg magnesium) tablet methotrexate 2.5 mg oral tablet (20 sources) Folate Analog Metabolic Inhibitor Start: 07-16-2023 Methotrexate Sodium 2.5 mg tablet Active mg July 16, 2023 12:00am Start: 07-16-2023 Methotrexate S odium Active MG July 16, 2023 12:00am Start: 04-13-2010 METHOTREXATE S ODIUM 2.5 MG TAB Take 8 pills once weekly 0 04/13/2010 Active Comment on above: Take 8 pills once we ekly montelukast 10 mg oral tablet (8 sources) Leukotriene Receptor Antagonist take 10 mg by mouth once daily montelukast sodium (SINGULAIR ORAL) Take 10 mg by mouth once daily. Active Comment on above: Take 10 mg by mouth once daily. predniSONE 10 mg oral tablet (7 sources) Start: 3 End: 3 predniSONE (DELTASONE) 10 mg tablet Indications: Acute cough Take 4 tabs daily for 3 days, then 2 tabs daily for 3 days, then 1 tab daily for 3 days with food. 21 tablet 0 07/15/2023 07/24/2023 Active Start: 12-28-2018 End: 07-15-2023 predniSONE (DELTASONE) 10 mg tablet Comment on above: Take 4 tabs daily fo r 3 days, then 2 tabs daily for 3 days, then 1 tab daily for 3 days with food. progesterone 100 mg oral capsule (4 sources) Progesterone Start: 03-11-20 25 End: 03-11-20 26 take 1 capsule by mouth once daily at bedtime progesterone micronized (PROMETRIUM) 100 mg capsule Indications: Hormone replacement therapy (HRT) Take 1 capsule by mouth daily at bedtime. 90 capsule 3 03/11/2025 03/11/2026 Active Completed/Discontinued Medications Medication Drug Class(es) Dates Sig (Normalized) Sig (Original) breath-actuated 120 actuat beclomethasone dipropionate 0.08 mg/actuat metered dose inhaler (12 sources) Corticosteroid Start: 05-02-2018 End: 03-11-2025 QVAR REDIHALER 80 mcg/actuation inhaler 05/02/2018 03/11/2025 Discontinued fluticasone propion/salmeterol (ADVAIR DISKUS INHALATION) (12 sources) End: 03-11-2025 fluticasone propion/salmeterol (ADVAIR DISKUS INHALATION) Inhale as instructed. 03/11/2025 Discontinued fluticasone prop ion/salmeterol (ADVAIR DISKUS INHALATION) Inhale as instructed. Active fluticasone prop ion/salmeterol (ADVAIR DISKUS INHALATION) Inhale as instructed. 0 Active Comment on above: Inhale as instructed . levonorgestrel 0.281712 mg/hr intrauterine system (12 sources) Progestin, Progestin-containing Intrauterine Device Start: 04-24-2016 End: 03-11-2025 levonorgestrel (MIRENA) 20 mcg/24 hr (5 years) IUD Inserted in office 1 Each 0 04/24/2016 03/11/2025 Discontinued Comment on above: Inserted in office Problems Active Problems Problem Classification Problem Date Documented Date Episodic/Chronic Abdominal pain (1 source) Finding of sensation of abdomen; Translations: [Unspecified abdominal pain] 01-30-2024 Episodic Fever of unknown origin (1 source) Fever; Translations: [Fever, unspecified] 01-30-2024 Episodic Genitourinary symptoms and ill-defined conditions (2 sources) Leukocytes in urine; Translations: [Other abnormal findings in urine] 01-30-2024 Episodic Immunizations and screening for infectious disease (20 sources) Patient encounter status; Translations: [Encounter for screening for COVID-19] Onset: 03-11-2025 Episodic Influenza (1 source) Influenza-like illness; Translations: [Influenza due to unidentified influenza virus with other respiratory manifestations] Episodic Menopausal disorders (2 sources) Menopausal symptom; Translations: [Menopausal and female climacteric states] Onset: 03-11-2025 03-11-2025 Chronic Menopausal disorders (2 sources) Drug therapy finding; Translations: [Hormone replacement therapy] Onset: 03-11-2025 03-11-2025 Episodic Other female genital disorders (1 source) Vaginal discharge; Translations: [Other specified noninflammatory disorders of vagina] 01-30-2024 Episodic Other lower respiratory disease (1 source) Cough; Translations: [Acute cough] 07-15-2023 Episodic Other screening for suspected conditions (not mental disorders or infectious disease) (4 sources) Inconclusive mammography finding; Translations: [Inconclusive mammogram] Onset: 03-11-2025 02-15-2023 Episodic Other upper respiratory infections (1 source) Acute upper respiratory infection; Translations: [Acute upper respiratory infection, unspecified] 07-15-2023 Episodic Rheumatoid arthritis and related disease (17 sources) Rheumatoid arthritis; Translations: [Rheumatoid arthritis with rheumatoid factor of unspecified site without organ or systems involvement] Onset: 04-15-2018 05-14-2018 Chronic Thyroid disorders (16 sources) Acquired hypothyroidism; Translations: [Hypothyroidism, unspecified] Onset: 03-14-2019 03-14-2019 Chronic Unclassified (3 sources) Patient encounter status 02-20-2025 Past or Other Problems Problem Classification Problem Date Documented Da te Episodic/Chronic Urinary tract infections (1 source) Urinary tract infection, site not specified; Translations: [Urinary tract infection, site not specified] Onset: 12-08-2024 Episodic Results Test Name Value Interpretation Reference Range [facility] Absolute lymphocyte countOrd ered By: Mickey Banuelos on 06-11-2025 Lymphocytes Auto (Unsp spec) [#/Vol] 3.17 10*3/uL 0.83-4.51 [facility] Absolute neutrophil countOrd ered By: Mickey Banuelos on 06-11-2025 Neutrophils (Bld) [#/Vol] 5.5 10*3/uL 2.0-7.7 [facility] Anion gap in Serum or Plasma Ordered By: Mickey Banuelos on 06-11-2025 Anion gap [Moles/Vol] 14 mmol/L 5-[address] [facility] Automated lymphocyte count a s percentage of total leukocytesOrdered By: Mickey Banuelos on 06-11-2025 Lymphocytes/100 WBC Auto (Unsp spec) 31.9 % 19- [facility] BUN/creatinine ratioOrdered By: Mickey Banuelos on 06-11-2025 Urea nitrogen/Creatinine [Mass ratio] 19.6 mg/mg 10-20 [facility] Basophil percentageOrdered B y: Mickey Banuelos on 06-11-2025 Basophils/100 WBC (Bld) 0.7 % 0-1 [facility] Bilirubin, totalOrdered By: Mickey Banuelos on 06-11-2025 Bilirubin [Mass/Vol] 0.43 mg/dL 0.00-1.30 [facility] CBC W/Diff, Automatedon 05-16 Absolute Lymph 3.17 X10 3/uL Normal 0.83-4.51 [facility] Comment on above: Performed By: #### L 100.0100, L500.4050, L503.6550, L506.0400, L501.9520, L501.47056 #### [facility] [address] [place], [address] Absolute Neut 5.5 X10 3/uL Normal 2.0-7.7 [facility] Comment on above: Performed By: #### L 100.0100, L500.4050, L503.6550, L506.0400, L501.9520, L501.42215 #### [facility] [address] [place], [address] Basophils/100 WBC (Bld) 0.7 % Normal 0-1 [facility] Comment on above: Performed By: #### L 100.0100, L500.4050, L503.6550, L506.0400, L501.9520, L501.78818 #### [facility] [address] [place], [address] Eosinophils/100 WBC (Bld) 5.5 % High 0-5 [facility] Comment on above: Performed By: #### L 100.0100, L500.4050, L503.6550, L506.0400, L501.9520, L501.76750 #### [facility] [address] [place], [address] Erythrocyte distribution width (RBC) [Ratio] 14.0 % Normal 11.6-14.6 [facility] Comment on above: Performed By: #### L 100.0100, L500.4050, L503.6550, L506.0400, L501.9520, L501.15767 #### [facility] [address] [place], [address] Hematocrit (Bld) [Volume fraction] 38.5 % Normal 37-47 [facility] Comment on above: Performed By: #### L 100.0100, L500.4050, L503.6550, L506.0400, L501.9520, L501.93450 #### [facility] [address] [place], [address] Hemoglobin (Bld) [Mass/Vol] 12.8 g/dL Normal 12.0-15.0 [facility] Comment on above: Performed By: #### L 100.0100, L500.4050, L503.6550, L506.0400, L501.9520, L501.88561 #### [facility] [address] [place], [address] IG% 0.300 Normal 0.0-0.9 [facility] Comment on above: Result Comment: IG% - Immature Granulocytes (promyelocytes, myelocytes and metamyelocytes) > 1% indicates that a LEFT SHIFT is Present. Performed By: #### L 100.0100, L500.4050, L503.6550, L506.0400, L501.9520, L501.97285 #### [facility] [address] [place], [address] Lymphocytes/100 WBC (Bld) 31.9 % Normal 19-41 [facility] Comment on above: Performed By: #### L 100.0100, L500.4050, L503.6550, L506.0400, L501.9520, L501.18482 #### [facility] [address] [place], [address] MCH (RBC) [Entitic mass] 31.2 pg Normal 27.0-32.0 [facility] Comment on above: Performed By: #### L 100.0100, L500.4050, L503.6550, L506.0400, L501.9520, L501.65607 #### [facility] [address] [place], [address] MCHC (RBC) [Mass/Vol] 33.2 g/dL Normal 32-[address] [facility] Comment on above: Performed By: #### L 100.0100, L500.4050, L503.6550, L506.0400, L501.9520, L501.47226 #### [facility] [address] [place], [address] MCV (RBC) [Entitic vol] 93.9 fL Normal 81-99 [facility] Comment on above: Performed By: #### L 100.0100, L500.4050, L503.6550, L506.0400, L501.9520, L501.53637 #### [facility] [address] [place], [address] Monocytes/100 WBC (Bld) 6.0 % Normal 0-10 [facility] Comment on above: Performed By: #### L 100.0100, L500.4050, L503.6550, L506.0400, L501.9520, L501.28664 #### [facility] [address] [place], [address] Neutrophils/100 WBC (Bld) 55.6 % Normal 47-70 [facility] Comment on above: Performed By: #### L 100.0100, L500.4050, L503.6550, L506.0400, L501.9520, L501.74309 #### [facility] [address] [place], [address] Nucleated RBC (Bld) [#/Vol] 0 10*3/uL Normal 0-5 [facility] Comment on above: Performed By: #### L 100.0100, L500.4050, L503.6550, L506.0400, L501.9520, L501.55570 #### [facility] [address] [place], [address] Platelet mean volume (Bld) [Entitic vol] 11.7 fL Normal 6.2-12.0 [facility] Comment on above: Performed By: #### L 100.0100, L500.4050, L503.6550, L506.0400, L501.9520, L501.27210 #### [facility] [address] [place], [address] Platelets (Bld) [#/Vol] 313 10*3/uL Normal 150-450 [facility] Comment on above: Performed By: #### L 100.0100, L500.4050, L503.6550, L506.0400, L501.9520, L501.08107 #### [facility] [address] [place], [address] RBC (Bld) [#/Vol] 4.10 10*6/uL Low 4.2-5.4 [facility] Comment on above: Performed By: #### L 100.0100, L500.4050, L503.6550, L506.0400, L501.9520, L501.72031 #### [facility] [address] [place], [address] RDW SD 48.0 fl High 35.1-43.9 [facility] Comment on above: Performed By: #### L 100.0100, L500.4050, L503.6550, L506.0400, L501.9520, L501.16313 #### [facility] [address] [place], [address] WBC (Bld) [#/Vol] 10.0 10*3/uL Normal 4.4-11.0 [facility] Comment on above: Performed By: #### L 100.0100, L500.4050, L503.6550, L506.0400, L501.9520, L501.49322 #### [facility] [address] [place], [address] Carbon dioxide, total [Moles /volume] in Central venous bloodOrdered By: Mickey Banuelos on 06-11-2025 CO2 [Moles/Vol] 20.4 mmol/L Low 21.0-32.0 [facility] Chloride assayOrdered By: Yusuf Banuelos on 06-11-2025 Chloride [Moles/Vol] 105 mmol/L 98-108 [facility] Comprehensive Metabolic Prof ilon 06-11-2025 Albumin [Mass/Vol] 4.2 g/dL Normal 3.4-4.8 [facility] Comment on above: Performed By: #### L 100.0100, L500.4050, L503.6550, L506.0400, L501.9520, L501.13883 #### [facility] [address] [place], [address] Albumin/Globulin [Mass ratio] 1.4 {ratio} Normal 0.9-2.4 [facility] Comment on above: Performed By: #### L 100.0100, L500.4050, L503.6550, L506.0400, L501.9520, L501.14311 #### [facility] [address] [place], [address] ALK PHOS 83 U/L Normal 35-104 [facility] Comment on above: Performed By: #### L 100.0100, L500.4050, L503.6550, L506.0400, L501.9520, L501.14841 #### [facility] [address] [place], [address] ALT [Catalytic activity/Vol] 17 U/L Normal <=34 [facility] Comment on above: Performed By: #### L 100.0100, L500.4050, L503.6550, L506.0400, L501.9520, L501.29213 #### [facility] [address] [place], [address] AST [Catalytic activity/Vol] 21 U/L Normal <=31 [facility] Comment on above: Performed By: #### L 100.0100, L500.4050, L503.6550, L506.0400, L501.9520, L501.19774 #### [facility] [address] [place], [address] Bilirubin [Mass/Vol] 0.43 mg/dL Normal 0.00-1.30 [facility] Comment on above: Performed By: #### L 100.0100, L500.4050, L503.6550, L506.0400, L501.9520, L501.51979 #### [facility] [address] [place], [address] BUN/CRE 19.6 RATIO Normal 10-20 [facility] Comment on above: Performed By: #### L 100.0100, L500.4050, L503.6550, L506.0400, L501.9520, L501.49091 #### [facility] [address] [place], [address] Calcium [Mass/Vol] 9.7 mg/dL Normal 7.6-11.0 [facility] Comment on above: Performed By: #### L 100.0100, L500.4050, L503.6550, L506.0400, L501.9520, L501.88478 #### [facility] [address] [place], [address] Chloride [Moles/Vol] 105 mmol/L Normal 98-108 [facility] Comment on above: Performed By: #### L 100.0100, L500.4050, L503.6550, L506.0400, L501.9520, L501.27582 #### [facility] [address] [place], [address] CO2 [Moles/Vol] 20.4 mmol/L Low 21.0-32.0 [facility] Comment on above: Performed By: #### L 100.0100, L500.4050, L503.6550, L506.0400, L501.9520, L501.22865 #### [facility] [address] [place], [address] Creatinine [Mass/Vol] 0.85 mg/dL Normal 0.70-1.[address] [facility] Comment on above: Performed By: #### L 100.0100, L500.4050, L503.6550, L506.0400, L501.9520, L501.49732 #### [facility] [address] [place], [address] GAP 14 Normal 5-15 [facility] Comment on above: Performed By: #### L 100.0100, L500.4050, L503.6550, L506.0400, L501.9520, L501.09217 #### [facility] [address] [place], [address] GFR/1.73 sq M.predicted among non-blacks MDRD (S/P/Bld) [Vol rate/Area] 78 mL/min/{1.73_m2} Normal >60 [facility] Comment on above: Result Comment: mL/m in/1.73m2 CKD-EPI Creatinine Equation (2020) Performed By: #### L 100.0100, L500.4050, L503.6550, L506.0400, L501.9520, L501.07768 #### [facility] [address] [place], [address] Globulin (S) [Mass/Vol] 3.1 g/dL Normal 2.2-4.2 [facility] Comment on above: Performed By: #### L 100.0100, L500.4050, L503.6550, L506.0400, L501.9520, L501.37156 #### [facility] [address] [place], [address] Glucose [Mass/Vol] 84 mg/dL Normal 70-99 [facility] Comment on above: Performed By: #### L 100.0100, L500.4050, L503.6550, L506.0400, L501.9520, L501.71724 #### [facility] [address] [place], [address] Potassium [Moles/Vol] 3.6 mmol/L Normal 3.3-5.[address] [facility] Comment on above: Performed By: #### L 100.0100, L500.4050, L503.6550, L506.0400, L501.9520, L501.57783 #### [facility] [address] [place], [address] Sodium [Moles/Vol] 139 mmol/L Normal 133-145 [facility] Comment on above: Performed By: #### L 100.0100, L500.4050, L503.6550, L506.0400, L501.9520, L501.83611 #### [facility] [address] [place], [address] T PROT 7.3 g/dL Normal 5.9-8.4 [facility] Comment on above: Performed By: #### L 100.0100, L500.4050, L503.6550, L506.0400, L501.9520, L501.94984 #### [facility] [address] [place], [address] Urea nitrogen [Mass/Vol] 17 mg/dL Normal 4-19 [facility] Comment on above: Performed By: #### L 100.0100, L500.4050, L503.6550, L506.0400, L501.9520, L501.56183 #### [facility] [address] [place], [address] Eosinophil percentageOrdered By: Mickey Banuelos on 06-11-2025 Eosinophils/100 WBC (Bld) 5.5 % High 0-5 [facility] Erythrocyte distribution wid th ratioOrdered By: Mickey Banuelos on 06-11-2025 Erythrocyte distribution width (RBC) [Ratio] 14.0 % 11.6-14.6 [facility] Erythrocyte distribution wid th standard deviationOrdered By: Mickey Banuelos on 06-11-2025 Erythrocyte distribution width (RBC) [Ratio] 48.0 fl High 35.1-43.9 [facility] Ferritinon 06-11-2025 Ferritin [Mass/Vol] 164 ng/mL Normal 22-378 [facility] Comment on above: Performed By: #### L 500.4050, L100.0100 #### [facility] [address] [place], [address] Free T3on 06-11-2025 Free T3 [Mass/Vol] 2.5 pg/mL Normal 2.18-3.98 [facility] Comment on above: Performed By: #### L 500.4050, L100.0100 #### [facility] [address] [place], [address] Free [id number] By: Mickey garcia on 06-11-2025 Free T3 [Mass/Vol] 2.5 pg/mL 2.18-3.98 [facility] Glomerular filtration rate ( GFR) estimation/1.73 sq m using serum, plasma, or whole bOrdered By: Mickey Banuelos on 06-11-2025 GFR/1.73 sq M.predicted among non-blacks MDRD (S/P/Bld) [Vol rate/Area] 78 mL/min/{1.73_m2} >60 [facility] Comment on above: mL/min/1.73m2 CKD-EP I Creatinine Equation (2020) Hematocrit Auto (Bld) [Volum e fraction]Ordered By: Mickey Banuelos on 06-11-2025 Hematocrit (Bld) [Volume fraction] 38.5 % 37-47 [facility] Hemoglobin measurementOrdere d By: Mickey Banuelos on 06-11-2025 Hemoglobin (Bld) [Mass/Vol] 12.8 g/dL 12.0-15.0 [facility] Immature granulocytes/100 WB C Auto (Bld)Ordered By: Mickey Banuelos on 06-11-2025 Immature granulocytes/100 WBC (Bld) 0.300 % 0.0-0.9 [facility] Comment on above: IG% - Immature Granu locytes (promyelocytes, myelocytes and metamyelocytes) > 1% indicates that a LEFT SHIFT is Present. Laboratory - Chemistry and C hemistry - challengeOrdered By: Mickey Banuelos on 06-11-2025 AST [Catalytic activity/Vol] 21 U/L <32 [facility] MCV (mean corpuscular volume ) determinationOrdered By: Mickey Banuelos on 06-11-2025 MCV (RBC) [Entitic vol] 93.9 fL 81-99 [facility] Mean corpuscular hemoglobin (MCH) determinationOrdered By: Mickey Banuelos on 06-11-2025 MCH (RBC) [Entitic mass] 31.2 pg 27.0-32.0 [facility] Mean corpuscular hemoglobin concentration (MCHC) determinationOrdered By: Mickey Banuelos on 06-11-2025 MCHC (RBC) [Mass/Vol] 33.2 g/dL 32-[address] [facility] Mean platelet volume determi nationOrdered By: Mickey Banuelos on 06-11-2025 Platelet mean volume (Bld) [Entitic vol] 11.7 fL 6.2-12.0 [facility] Monocyte percentageOrdered B y: Mickey Banuelos on 06-11-2025 Monocytes/100 WBC (Bld) 6.0 % 0-10 [facility] Neutrophil percentageOrdered By: Mickey Banuelos on 06-11-2025 Neutrophils/100 WBC (Bld) 55.6 % 47-70 [facility] Nucleated red blood cell per centageOrdered By: Mickey Banuelos on 06-11-2025 Nucleated RBC/100 WBC (Bld) [Ratio] 0 % 0-5 [facility] Platelet countOrdered By: Yusuf Banuelos on 06-11-2025 Platelets (Bld) [#/Vol] 313 10*3/uL 150-450 [facility] Potassium measurement (mass/ volume)Ordered By: Mickey Banuelos on 06-11-2025 Potassium (Unsp spec) [Mass/Vol] 3.6 mmol/L 3.3-5.1 [facility] RBC Auto (Bld) [#/Vol]Ordere d By: Mickey Banuelos on 06-11-2025 RBC (Bld) [#/Vol] 4.10 10*6/uL Low 4.2-5.4 [facility] Serum creatinine measurement (mass/volume)Ordered By: Mickey Banuelos on 06-11-2025 Creatinine [Mass/Vol] 0.85 mg/dL 0.70-1.[address] [facility] Serum globulin measurementOr dered By: Mickey Banuelos on 06-11-2025 Globulin (S) [Mass/Vol] 3.1 g/dL 2.2-4.2 [facility] Serum glucose measurement (m ass/volume)Ordered By: Mickey Banuelos on 06-11-2025 Glucose [Mass/Vol] 84 mg/dL 70-99 [facility] Serum or plasma alanine good otransferase (ALT) measurementOrdered By: Mickey Banuelos on 06-11-2025 ALT [Catalytic activity/Vol] 17 U/L <35 [facility] Serum or plasma albumin marleni urement (mass/volume)Ordered By: Mickey Banuelos on 06-11-2025 Albumin [Mass/Vol] 4.2 g/dL 3.4-4.8 [facility] Serum or plasma albumin/glob ulin mass ratioOrdered By: Mickey Banuelos on 06-11-2025 Albumin/Globulin [Mass ratio] 1.4 {ratio} 0.9-2.4 [facility] Serum or plasma alkaline kaye sphatase measurementOrdered By: Mickey Banuelos on 06-11-2025 ALP [Catalytic activity/Vol] 83 U/L 35-104 [facility] Serum or plasma calcium marleni urement (mass/volume)Ordered By: Mickey Banuelos on 06-11-2025 Calcium [Mass/Vol] 9.7 mg/dL 7.6-11.0 [facility] Serum or plasma ferritin kemal surement (mass/volume)Ordered By: Mickey Banuelos on 06-11-2025 Ferritin [Mass/Vol] 164 ng/mL 22-378 [facility] Serum or plasma urea nitroge n measurement (mass/volume)Ordered By: Mickey Banuelos on 06-11-2025 Urea nitrogen [Mass/Vol] 17 mg/dL 4-19 [facility] Sodium levelOrdered By: Mickey Banuelos on 06-11-2025 Sodium [Moles/Vol] 139 mmol/L 133-145 [facility] T4 Free Directon 06-11-2025 T4 FREE DIRECT 1.70 ng/dL High 0.76-1.46 [facility] Comment on above: Performed By: #### L 500.4050, L100.0100 #### [facility] [address] [place] [address], [address] T4 freeOrdered By: Mickey garcia on 06-11-2025 Free T4 [Mass/Vol] 1.70 ng/dL High 0.76-1.46 [facility] TSH DL <= 0.005 mIU/L QnOrde red By: Mickey Banuelos on 06-11-2025 TSH Qn 0.504 uIU/mL 0.300-4.200 [facility] Thyroid Stim Hormone (TSH)on 06-11-2025 TSH 0.504 uIU/mL Normal 0.300-4.200 [facility] Comment on above: Performed By: #### L 500.4050, L100.0100 #### [facility] [place], [address] Total proteinOrdered By: Angella Banuelos on 06-11-2025 Protein [Mass/Vol] 7.3 g/dL 5.9-8.4 [facility] White blood cell (WBC) count Ordered By: Mickey Banuelos on 06-11-2025 WBC (Bld) [#/Vol] 10.0 10*3/uL 4.4-11.0 [facility] CNOVon 03-11-2025 CNOV Office Visit (OBGYWM) ---- KRISS MOORE ([id number]) 1965 F Date Time Provider Department 03/11/25 10:30 AM SVETLANA QURESHI During your visit today, we recorded the following information about you: Blood pressure Weight Height 124/84 81.2 kg 1.765 m Svetlana Qureshi APRN.CNP 03/11/2025 12:42 PM Signed Commercial Field Inspector offered: Patient declines. Mars is a 60 year old who presents for an annual gynecologic exam with complaints, menopausal symptoms. Restarted Climara patch again on her own in December after stopping it a year ago due bothersome mild hot flashes, mood and she began to date again. Mood and hot flashes have improved and she would like to continue it. She ran out of patch about a month ago again and symptoms have returned. Postmenopausal: Yes since age 55 HRT use: Yes, Climara patch How long: age 58 for 1 year. Restarted it again on her own in December Still get period: No Menopause symptoms: Hot flashes; Vaginal dryness Number of lifetime partners: 5 Last pap smear: 01/30/2023 normal HPV negative History of abnormal pap: Yes, history of abnormal PAP smears 2018 Pap LSIL HPV neg Jasper benign Bothersome pelvic pain: No Last mammogram: 2022 normal History of abnormal mammogram: No OB History Gravida4 Para2 Term2 Preterm0 AB2 Living2 SAB0 IAB2 Ectopic0 Multiple0 Live Births0 Comment: 2 vaginal deliveries Geographic Information Scientist History LMP: 04/20/2016 (Exact Date), Postmenopausal Age at Menarche: 13 Age at First : Age at Menopause: Geographic Information Scientist History Comments: Sexual Activity: Not Currently; Male Contraception: Condom, None PAST MEDICAL HISTORY Diagnosis Date HYPOTHYROIDISM LGSIL on Pap smear of cervix 02/2019 Osteoarthrosis, unspecified whether generalized or localized, other specified sites knees Rheumatoid arthritis(714.0) Unspecified asthma(493.90) PAST SURGICAL HISTORY Procedure Laterality Date COLONOSCOPY FLX DX W/COLLJ SPEC WHEN PFRMD 08/14/2019 Colonoscopy INSERT INTRAUTERINE DEVICE 04/24/2016 removed 01/30/2024 PAST SURGICAL HISTORY OF 1991/1992 [employer] FAMILY HISTORY Problem Relation Age of Onset Stroke Father Heart Father Hypertension Father Hypertension Mother Cancer Maternal Grandmother ovarian Uterine Cancer Maternal Grandfather Diabetes Paternal Grandmother SOCIAL HISTORY Social History Tobacco Use Smoking status: Former Current packs/day: 0.00 Average packs/day: 1 pack/day for 8.0 years (8.0 ttl pk-yrs) Types: Cigarettes Start date: 08/14/1980 Quit date: 08/14/1988 Years since quittin.5 Smokeless tobacco: Never Vaping Use Vaping status: Never Used Substance Use Topics Alcohol use: Yes Comment: occ REVIEW OF SYSTEMS Abdomen: No abdominal pain, nausea, vomiting, diarrhea, or constipation. No bloating, early satiety, indigestion, or increased flatulence. Bladder: No dysuria, gross hematuria, urinary frequency, urinary urgency, or incontinence Breast: No breast lumps, nipple d/c, overlying skin changes, redness or skin retraction Allergies and current medication updated:Yes SENSITIVE EXAM: The sensitive examination was discussed with the Patient or Patient's Authorized Linseed Cake Trimmer. As applicable, any other physician, advance practice provider, medical student, or other health professional student that will be observing or involved in the sensitive examination for educational or training purposes was discussed with the Patient or Authorized Linseed Cake Trimmer. The Patient or Authorized Linseed Cake Trimmer has agreed to proceed with the sensitive examination. (Sensitive examination includes inspection and/or palpation of the breasts, pelvis, prostate and anorectal regions). EXAM: BP 124/84 Ht 5' 9.5 (1.77m) Wt 179 lb (81.2kg) LMP 04/20/2016 BMI 26.06 kg/(m2). GENERAL: pleasant, female in no apparent distress HEENT: Normocephalic, atraumatic, mucus membranes moist, and no lesions NECK: Supple, full range of motion, no adenopathy, and thyroid normal DERMATOLOGY: Normal, without lesions, non-icteric, and non-hirsute BREAST: soft, non-tender, symmetric, no dominant mass, normal nipple-areolar complex, no lymphadenopathy, and no nipple discharge CHEST: Normal inspiratory effort ABDOMEN: soft, non-tender, and no masses PELVIC: external genitalia normal, normal Bartholin's glands, urethra, [place]'s glands, no vulvar lesions, no cervical lesions, physiologic discharge present, normal appearing perineal body and perianal region, atrophic changes BIMANUAL: uterus normal size, shape and consistency, no adnexal masses, and non-tender RECTOVAGINAL: deferred. NEURO: alert and oriented x3,exam grossly non-focal EXTREMITIES: normal ASSESSMENT/PLAN: 1) Health maintenance: Pap done with HPV. Mammogram ordered Mammogram up to date Nutrition, exercise and routine health maint (more content not included)... Normal [facility] HIGH RISK HUMAN PAPILLOMA AUTUMN (HPV), PCR FOR DETECTION AND GENOTYPINGon 03-11-2025 HPV 16 Ag Ql (Unsp spec) Not detected Normal Not detected [facility] Comment on above: Order Comment: Speci men Type: FLUID SPECIMEN Ordering Facility: [facility] Address: [address] [place] [address] Performed By: #### H PVHRT #### [facility] CLIA [id number] [address] [place] [address] [place] [address] [place] HPV 18 Ag Ql (Unsp spec) Not detected Normal Not detected [facility] Comment on above: Order Comment: Speci men Type: FLUID SPECIMEN Ordering Facility: [facility] Address: [address] [place] [address] Performed By: #### H PVHRT #### [facility] CLIA [id number] [address] [place] [address] [place] HPV 31+33+35+39+45+51+52+56 +58+59+66+68 DNA JAHAIRA+probe Ql (Cvx) Not detected Normal Not detected [facility] Comment on above: Order Comment: Speci men Type: FLUID SPECIMEN Ordering Facility: [facility] Address: [address] [place] [address] Result Comment: High Risk HPV Other Type includes HPV types 31, 33, 35, 39, 45, 51, 52, 56, 58, 59, 66 and 68. Performed By: #### H PVHRT #### [facility] CLIA [id number] [address] [place] [address] [place] MATHEW SCREENING W TOMOon 03-11 MATHEW SCREENING W KRISHNA * * *Final Report* * * DATE OF EXAM: Mar 11 2025 11:46AM [id number] - MATHEW SCREENING W KRISHNA / PROCEDURE REASON: Encounter for screening mammogram for malignant neoplasm of breast * * * * Physician Interpretation * * * * RESULT: [place] [address] [place] [id number] #[id number] - MATHEW SCREENING W KRISHNA HISTORY: 60 year-old patient seen for screening. Patient is asymptomatic in both breasts. Patient states no personal history of breast cancer. COMPARISON STUDIES: The present examination has been compared to prior imaging studies dated 03/14/2019 (mammogram), 06/17/2020 (mammogram), 08/18/2021 (mammogram) and 02/15/2023 (mammogram). MAMMOGRAM TECHNIQUE: The study was acquired using full field digital technology and interpreted from soft copy. Digital Breast Tomosynthesis (DBT) images were obtained and used to assist in the interpretation of this examination. MAMMOGRAM FINDINGS: There are scattered areas of fibroglandular density. No suspicious masses, calcifications or other abnormalities are seen in either breast. There are no significant interval changes. IMPRESSION: There is no mammographic evidence of malignancy in either breast. Routine screening mammogram is recommended. Annual mammogram will be due in 1 year. BI-RADS Category 1: Negative RISK: Based on the Tyrer-Cuzick (TC) risk assessment model, this patient has a 8.7% lifetime risk of developing breast cancer, meaning they are at average risk for developing breast cancer. However, this is only an estimate based on available history provided on the patient's questionnaire. We encourage all patients to talk with their providers about these results, further recommendations for managing breast health, and appropriate supplemental screening options if the patient has dense breast tissue. Interpreting Radiologist: Kia Velez M.D. Resident/Fellow: Janae Drummond D.O. Electronically signed on: 03/12/2025 Steel Melter: SYLVAI Transcribe Date/Time: Mar 11 2025 10:20A Dictated by: JANAE DRUMMOND DO This examination was interpreted and the report reviewed and electronically signed by: KIA VELEZ MD on Mar 12 2025 2:09PM EST [id number] Normal [facility] PAP TESTon 03-11-2025 ADEQUACY Normal [facility] Comment on above: Order Comment: Ann moore Type: FLUID SPECIMEN Ordering Facility: [facility] Address: [address] [place] [address] Result Comment: Sati sfactory for interpretation. Transformation zone present Performed By: #### L [id number] #### [facility] CLIA [id number] [address] [place] [address] [place] CASE REPORT Normal [facility] Comment on above: Order Comment: Ann moore Type: FLUID SPECIMEN Ordering Facility: [facility] Address: [address] [place] [address] Result Comment: Gyne cologic Cytology Report Case: [id number] Authorizing Provider: Svetlana Qureshi APRN.FORMAL WAITER/WAITRESS Collected: 03/11/2025 11:21 AM Ordering Location: OB/Gynecology Received: 03/11/2025 12:03 PM First Screen: Doc Norman, RICA, ASCP Rescreen: Adela Carney CT, ASCP Specimen: Pap Test, ThinPrep, Cervix Performed By: #### L [id number] #### [facility] CLIA [id number] [address] [place] [address] [place] CLINICAL HISTORY, CYTOLOGY, RAG CUTTING MACHINE TENDER Post Menopausal Normal [facility] Comment on above: Order Comment: Speci men Type: FLUID SPECIMEN Ordering Facility: [facility] Address: [address] [place] [address] Result Comment: Prev ious ASCUS Performed By: #### L [id number] #### [facility] CLIA [id number] [address] [place] [address] [place] FINAL PERFORMING LAB Normal [facility] Comment on above: Order Comment: Speci men Type: FLUID SPECIMEN Ordering Facility: [facility] Address: [address] [place] [address] Result Comment: Tech nical component, chief lending officer screening performed at: [facility], [address] [place] [address] CLIA: [id number] Diagnostic interpretation performed at: [facility], [address] [place], [place] [address] CLIA# [id number] Manufacturing Manager: Augustin Moraes MD Performed By: #### L [id number] #### [facility] CLIA [id number] [address] [place], [place] [id number] [place] INTERPRETATION, CYTOLOGY, RAG CUTTING MACHINE TENDER Normal [facility] Comment on above: Order Comment: Speci men Type: FLUID SPECIMEN Ordering Facility: [facility] Address: [address] [place] [address] Result Comment: Nega tive for intraepithelial lesion or malignancy. at 1509 EDT Performed By: #### L [id number] #### [facility] CLIA [id number] [address] [place] [address] [place] PAP DISCLAIMER COMMENT The Pap Smear is a screening test for cervical cancer. False negative results occur with all screening tests, emphasizing the need for rescreening at recommended intervals, and clinical correlation. Normal [facility] Comment on above: Order Comment: Speci men Type: FLUID SPECIMEN Ordering Facility: [facility] Address: [address] [place] [address] Performed By: #### L [id number] #### [facility] CLIA [id number] [address] [place] [address] [place] PAP MATERIAL YARD CLERK COMMENT This specimen has been analyzed by the FDA-approved [facility], which uses digital imaging and an enhanced artificial intelligence image analysis algorithm to identify lopez of interest on the microscopic slide, to assist the center machine set up operator and pathologist in evaluating cells on ThinPrep Pap tests. Following analysis, lopez of interest on the microscopic slide selected by the algorithm are reviewed by a center machine set up operator. If a sample requires hierarchical review, the pathologist will review the same lopez of interest selected by the algorithm prior to final interpretation. Normal [facility] Comment on above: Order Comment: Speci men Type: FLUID SPECIMEN Ordering Facility: [facility] Address: [address] [place] [address] Performed By: #### L [id number] #### [facility] CLIA [id number] [address] [place] [address] [place] Absolute lymphocyte countOrd ered By: Juana Kaiser on 02-25-2025 Lymphocytes Auto (Unsp spec) [#/Vol] 2.99 10*3/uL 0.83-4.51 [facility] Absolute neutrophil countOrd ered By: Juana Kaiser on 02-25-2025 Neutrophils (Bld) [#/Vol] 4.0 10*3/uL 2.0-7.7 [facility] Anion gap in Serum or Plasma Ordered By: Juana Kaiser on 02-25-2025 Anion gap [Moles/Vol] 10 mmol/L 5-[address] [facility] Automated lymphocyte count a s percentage of total leukocytesOrdered By: Juana Kaiser on 02-25-2025 Lymphocytes/100 WBC Auto (Unsp spec) 35.5 % - [facility] BUN/creatinine ratioOrdered By: Juanadesire Kaiser on 02-25-2025 Urea nitrogen/Creatinine [Mass ratio] 23.1 mg/mg High 10- [facility] Basophil percentageOrdered B y: Juana Kaiser on 02-25-2025 Basophils/100 WBC (Bld) 0.8 % 0-1 [facility] Bilirubin, totalOrdered By: [facility] Awilda on 02-25-2025 Bilirubin [Mass/Vol] 0.56 mg/dL 0.00-1.30 [facility] CBC W/Diff, Automatedon 02-12 Absolute Lymph 2.99 X10 3/uL Normal 0.83-4.51 [facility] Comment on above: Performed By: #### L 500.4050, L100.0100 #### [facility] [address] [place], [address] Absolute Neut 4.0 X10 3/uL Normal 2.0-7.7 [facility] Comment on above: Performed By: #### L 500.4050, L100.0100 #### [facility] [address] [place], [address] Basophils/100 WBC (Bld) 0.8 % Normal 0-1 [facility] Comment on above: Performed By: #### L 500.4050, L100.0100 #### [facility] [address] [place], [address] Eosinophils/100 WBC (Bld) 10.8 % High 0-5 [facility] Comment on above: Performed By: #### L 500.4050, L100.0100 #### [facility] [address] [place], [address] Erythrocyte distribution width (RBC) [Ratio] 13.9 % Normal 11.6-14.6 [facility] Comment on above: Performed By: #### L 500.4050, L100.0100 #### [facility] [address] [place], [address] Hematocrit (Bld) [Volume fraction] 40.4 % Normal 37-47 [facility] Comment on above: Performed By: #### L 500.4050, L100.0100 #### [facility] [address] [place], [address] Hemoglobin (Bld) [Mass/Vol] 13.2 g/dL Normal 12.0-15.0 [facility] Comment on above: Performed By: #### L 500.4050, L100.0100 #### [facility] [address] [place], [address] IG% 0.200 Normal 0.0-0.9 [facility] Comment on above: Result Comment: IG% - Immature Granulocytes (promyelocytes, myelocytes and metamyelocytes) > 1% indicates that a LEFT SHIFT is Present. Performed By: #### L 500.4050, L100.0100 #### [facility] [address] [place], [address] Lymphocytes/100 WBC (Bld) 35.5 % Normal 19-41 [facility] Comment on above: Performed By: #### L 500.4050, L100.0100 #### [facility] [address] [place], [address] MCH (RBC) [Entitic mass] 30.1 pg Normal 27.0-32.0 [facility] Comment on above: Performed By: #### L 500.4050, L100.0100 #### [facility] [address] [place], [address] MCHC (RBC) [Mass/Vol] 32.7 g/dL Normal 32-[address] [facility] Comment on above: Performed By: #### L 500.4050, L100.0100 #### [facility] [address] [place], [address] MCV (RBC) [Entitic vol] 92.0 fL Normal 81-99 [facility] Comment on above: Performed By: #### L 500.4050, L100.0100 #### [facility] [address] [place], [address] Monocytes/100 WBC (Bld) 5.3 % Normal 0-10 [facility] Comment on above: Performed By: #### L 500.4050, L100.0100 #### [facility] [address] [place], [address] Neutrophils/100 WBC (Bld) 47.4 % Normal 47-70 [facility] Comment on above: Performed By: #### L 500.4050, L100.0100 #### [facility] [address] [place], [address] Nucleated RBC (Bld) [#/Vol] 0 10*3/uL Normal 0-5 [facility] Comment on above: Performed By: #### L 500.4050, L100.0100 #### [facility] [address] [place], [address] Platelet mean volume (Bld) [Entitic vol] 11.2 fL Normal 6.2-12.0 [facility] Comment on above: Performed By: #### L 500.4050, L100.0100 #### [facility] [address] [place], [address] Platelets (Bld) [#/Vol] 342 10*3/uL Normal 150-450 [facility] Comment on above: Performed By: #### L 500.4050, L100.0100 #### [facility] [address] [place], [address] RBC (Bld) [#/Vol] 4.39 10*6/uL Normal 4.2-5.4 [facility] Comment on above: Performed By: #### L 500.4050, L100.0100 #### [facility] [address] [place], [address] RDW SD 47.3 fl High 35.1-43.9 [facility] Comment on above: Performed By: #### L 500.4050, L100.0100 #### [facility] [address] [place], [address] WBC (Bld) [#/Vol] 8.4 10*3/uL Normal 4.4-11.0 [facility] Comment on above: Performed By: #### L 500.4050, L100.0100 #### [facility] [address] [place], [address] Carbon dioxide, total [Moles /volume] in Central venous bloodOrdered By: Juana Kaiser on 02-25-2025 CO2 [Moles/Vol] 21.9 mmol/L 21.0-32.0 [facility] Chloride assayOrdered By: Rocco Kaiser on 02-25-2025 Chloride [Moles/Vol] 103 mmol/L 98-108 [facility] Comprehensive Metabolic Prof ilon 02-25-2025 Albumin [Mass/Vol] 4.2 g/dL Normal 3.4-4.8 [facility] Comment on above: Performed By: #### L 500.4050, L100.0100 #### [facility] [address] [place], [address] Albumin/Globulin [Mass ratio] 1.3 {ratio} Normal 0.9-2.4 [facility] Comment on above: Performed By: #### L 500.4050, L100.0100 #### [facility] [address] [place], [address] ALK PHOS 105 U/L High 35-104 [facility] Comment on above: Performed By: #### L 500.4050, L100.0100 #### [facility] [address] [place], [address] ALT [Catalytic activity/Vol] 21 U/L Normal <=34 [facility] Comment on above: Performed By: #### L 500.4050, L100.0100 #### [facility] [address] [place], [address] AST [Catalytic activity/Vol] 25 U/L Normal <=31 [facility] Comment on above: Performed By: #### L 500.4050, L100.0100 #### [facility] [address] [place], [address] Bilirubin [Mass/Vol] 0.56 mg/dL Normal 0.00-1.30 [facility] Comment on above: Performed By: #### L 500.4050, L100.0100 #### [facility] [address] [place], [address] BUN/CRE 23.1 RATIO High 10-20 [facility] Comment on above: Performed By: #### L 500.4050, L100.0100 #### [facility] [address] [place], [address] Calcium [Mass/Vol] 9.7 mg/dL Normal 7.6-11.0 [facility] Comment on above: Performed By: #### L 500.4050, L100.0100 #### [facility] [address] [place], [address] Chloride [Moles/Vol] 103 mmol/L Normal 98-108 [facility] Comment on above: Performed By: #### L 500.4050, L100.0100 #### [facility] [address] [place], [address] CO2 [Moles/Vol] 21.9 mmol/L Normal 21.0-32.0 [facility] Comment on above: Performed By: #### L 500.4050, L100.0100 #### [facility] [address] [place], [address] Creatinine [Mass/Vol] 0.77 mg/dL Normal 0.70-1.[address] [facility] Comment on above: Performed By: #### L 500.4050, L100.0100 #### [facility] [address] [place], [address] GAP 10 Normal 5-15 [facility] Comment on above: Performed By: #### L 500.4050, L100.0100 #### [facility] [address] [place], [address] GFR/1.73 sq M.predicted among non-blacks MDRD (S/P/Bld) [Vol rate/Area] 89 mL/min/{1.73_m2} Normal >60 [facility] Comment on above: Result Comment: mL/m in/1.73m2 CKD-EPI Creatinine Equation (2020) Performed By: #### L 500.4050, L100.0100 #### [facility] [address] [place], [address] Globulin (S) [Mass/Vol] 3.1 g/dL Normal 2.2-4.2 [facility] Comment on above: Performed By: #### L 500.4050, L100.0100 #### [facility] [address] [place], [address] Glucose [Mass/Vol] 96 mg/dL Normal 70-99 [facility] Comment on above: Performed By: #### L 500.4050, L100.0100 #### [facility] [address] [place], [address] Potassium [Moles/Vol] 4.1 mmol/L Normal 3.3-5.[address] [facility] Comment on above: Performed By: #### L 500.4050, L100.0100 #### [facility] [address] [place], [address] Sodium [Moles/Vol] 135 mmol/L Normal 133-145 [facility] Comment on above: Performed By: #### L 500.4050, L100.0100 #### [facility] [address] [place], [address] T PROT 7.3 g/dL Normal 5.9-8.4 [facility] Comment on above: Performed By: #### L 500.4050, L100.0100 #### [facility] [address] [place], [address] Urea nitrogen [Mass/Vol] 18 mg/dL Normal 4-19 [facility] Comment on above: Performed By: #### L 500.4050, L100.0100 #### [facility] [address] [place], [address] Eosinophil percentageOrdered By: Juana Kaiser on 02-25-2025 Eosinophils/100 WBC (Bld) 10.8 % High 0-5 [facility] Erythrocyte distribution wid th ratioOrdered By: Juana Kaiser on 02-25-2025 Erythrocyte distribution width (RBC) [Ratio] 13.9 % 11.6-14.6 [facility] Erythrocyte distribution wid th standard deviationOrdered By: Juana Kaiser on 02-25-2025 Erythrocyte distribution width (RBC) [Ratio] 47.3 fl High 35.1-43.9 [facility] Glomerular filtration rate ( GFR) estimation/1.73 sq m using serum, plasma, or whole bOrdered By: Juana Kaiser on 02-25-2025 GFR/1.73 sq M.predicted among non-blacks MDRD (S/P/Bld) [Vol rate/Area] 89 mL/min/{1.73_m2} >60 [facility] Comment on above: mL/min/1.73m2 CKD-EP I Creatinine Equation (2020) Hematocrit Auto (Bld) [Volum e fraction]Ordered By: Juana Kaiser on 02-25-2025 Hematocrit (Bld) [Volume fraction] 40.4 % 37-47 [facility] Hemoglobin measurementOrdere d By: Juana Kaiser on 02-25-2025 Hemoglobin (Bld) [Mass/Vol] 13.2 g/dL 12.0-15.0 [facility] Immature granulocytes/100 WB C Auto (Bld)Ordered By: Juana Kaiser on 02-25-2025 Immature granulocytes/100 WBC (Bld) 0.200 % 0.0-0.9 [facility] Comment on above: IG% - Immature Granu locytes (promyelocytes, myelocytes and metamyelocytes) > 1% indicates that a LEFT SHIFT is Present. Laboratory - Chemistry and C hemistry - challengeOrdered By: Juana Kaiser on 02-25-2025 AST [Catalytic activity/Vol] 25 U/L <32 [facility] MCV (mean corpuscular volume ) determinationOrdered By: Juana Kaiser on 02-25-2025 MCV (RBC) [Entitic vol] 92.0 fL 81-99 [facility] Mean corpuscular hemoglobin (MCH) determinationOrdered By: Juana Kaiser on 02-25-2025 MCH (RBC) [Entitic mass] 30.1 pg 27.0-32.0 [facility] Mean corpuscular hemoglobin concentration (MCHC) determinationOrdered By: Juana Kaiser on 02-25-2025 MCHC (RBC) [Mass/Vol] 32.7 g/dL 32-[address] [facility] Mean platelet volume determi nationOrdered By: Juana Kaiser on 02-25-2025 Platelet mean volume (Bld) [Entitic vol] 11.2 fL 6.2-12.0 [facility] Monocyte percentageOrdered B y: Juana Kaiser on 02-25-2025 Monocytes/100 WBC (Bld) 5.3 % 0-10 [facility] Neutrophil percentageOrdered By: Juana Kaiser on 02-25-2025 Neutrophils/100 WBC (Bld) 47.4 % 47-70 [facility] Nucleated red blood cell per centageOrdered By: Juana Kaiser on 02-25-2025 Nucleated RBC/100 WBC (Bld) [Ratio] 0 % 0-5 [facility] Platelet countOrdered By: Rocco Kaiser on 02-25-2025 Platelets (Bld) [#/Vol] 342 10*3/uL 150-450 [facility] Potassium measurement (mass/ volume)Ordered By: Juana Kaiser on 02-25-2025 Potassium (Unsp spec) [Mass/Vol] 4.1 mmol/L 3.3-5.1 [facility] RBC Auto (Bld) [#/Vol]Ordere d By: Juana Kaiser on 02-25-2025 RBC (Bld) [#/Vol] 4.39 10*6/uL 4.2-5.4 [facility] Serum creatinine measurement (mass/volume)Ordered By: Juana Kaiser on 02-25-2025 Creatinine [Mass/Vol] 0.77 mg/dL 0.70-1.[address] [facility] Serum globulin measurementOr dered By: Juana Kaiser on 02-25-2025 Globulin (S) [Mass/Vol] 3.1 g/dL 2.2-4.2 [facility] Serum glucose measurement (m ass/volume)Ordered By: Juana Kaiser on 02-25-2025 Glucose [Mass/Vol] 96 mg/dL 70-99 [facility] Serum or plasma alanine good otransferase (ALT) measurementOrdered By: Juana Kaiser on 02-25-2025 ALT [Catalytic activity/Vol] 21 U/L <35 [facility] Serum or plasma albumin marleni urement (mass/volume)Ordered By: Juana Kaiser on 02-25-2025 Albumin [Mass/Vol] 4.2 g/dL 3.4-4.8 [facility] Serum or plasma albumin/glob ulin mass ratioOrdered By: Juana Kaiser on 02-25-2025 Albumin/Globulin [Mass ratio] 1.3 {ratio} 0.9-2.4 [facility] Serum or plasma alkaline kaye sphatase measurementOrdered By: Juana Kaiser on 02-25-2025 ALP [Catalytic activity/Vol] 105 U/L High 35-104 [facility] Serum or plasma calcium marleni urement (mass/volume)Ordered By: Juana Kaiser on 02-25-2025 Calcium [Mass/Vol] 9.7 mg/dL 7.6-11.0 [facility] Serum or plasma urea nitroge n measurement (mass/volume)Ordered By: Juana Kaiser on 02-25-2025 Urea nitrogen [Mass/Vol] 18 mg/dL 4-19 [facility] Sodium levelOrdered By: Duke Kaiser on 02-25-2025 Sodium [Moles/Vol] 135 mmol/L 133-145 [facility] Total proteinOrdered By: Alida Kaiser on 02-25-2025 Protein [Mass/Vol] 7.3 g/dL 5.9-8.4 [facility] White blood cell (WBC) count Ordered By: Juana Kaiser on 02-25-2025 WBC (Bld) [#/Vol] 8.4 10*3/uL 4.4-11.0 [facility] CNPNon 02-20-2025 AFUAN Telephone (ROSALIA) ---- KRISS MOORE ([id number]) 1965 F Date Time Provider Department 02/20/25 SVETLANA QURESHI During your visit today, we recorded the following information about you: Katie Santo RN 02/20/2025 12:31 PM Signed Received message in appointment request for a Mamm with KRISHNA. Please file and route to PSS. Katie Santo RN Allergies As of Date: 02/20/2025 Noted Allergy Reaction DUST MITES 05/05/2002 Comments: seasonal GRASS POLLEN 05/05/2002 Comments: seasonal Date Reviewed: 01/30/2024 Reviewed by: Svetlana Qureshi APRN.FORMAL WAITER/WAITRESS - Fully Assessed Reason for Visit: Orders [681] Primary Visit Diagnosis:Encounter for screening mammogram for malignant neoplasm of breast [Z12.31] Order(s):MATHEW SCREENING W KRISHNA [[id number]] Order #: [id number] FUTURE Prescriptions as of 02/20/2025 - montelukast sodium (SINGULAIR ORAL) Take 10 mg by mouth once daily. - fluticasone propionate (FLONASE NASAL) Use in the nose once daily. - estradiol (CLIMARA) 0.025 mg/24 hr Apply 1 Patch as directed one time a week. - budesonide/formoter ol fumarate (SYMBICORT INHALATION) Inhale as instructed. - fluticasone propion/salmeterol (ADVAIR DISKUS INHALATION) Inhale as instructed. - magnesium oxide (MAG-OX) 400 mg (241.3 mg magnesium) tablet - QVAR REDIHALER 80 mcg/actuation inhaler - cetirizine (ZYRTEC) 10 mg tablet - folic acid 1 mg tablet - levonorgestrel (MIRENA) 20 mcg/24 hr (5 years) IUD Inserted in office - LEUCOVORIN CALCIUM, BULK, MISC - METHOTREXATE SODIUM 2.5 MG TAB Take 8 pills once weekly - levothyroxine (SYNTHROID) 100 mcg ORAL Tab Take one(1) tablet daily. - duloxetine (CYMBALTA) 30 mg ORAL CpDR Take one(1) capsule daily. Problem List As Of Date 02/20/2025 Noted Resolved Rheumatoid arthritis without organ or system in*04/15/2018 Acquired hypothyroidism [E03.9] 03/14/2019 Encounter Status:Closed by KATIE SANTO on 02/20/25 Normal [facility] Absolute lymphocyte countOrd ered By: Juana Kaiser on 12-02-2024 Lymphocytes Auto (Unsp spec) [#/Vol] 3.31 10*3/uL 0.83-4.51 [facility] Absolute neutrophil countOrd ered By: Juana Kaiser on 12-02-2024 Neutrophils (Bld) [#/Vol] 5.4 10*3/uL 2.0-7.7 [facility] Albumin to globulin ratioOrd ered By: Juana Kaiser on 12-02-2024 Albumin/Globulin [Mass ratio] 0.8 {ratio} Low 0.9-2.4 [facility] Automated lymphocyte count a s percentage of total leukocytesOrdered By: Juana Kaiser on 12-02-2024 Lymphocytes/100 WBC Auto (Unsp spec) 34.1 % -41 [facility] Basophil percentageOrdered B y: Juana Kaiser on 12-02-2024 Basophils/100 WBC (Bld) 0.7 % 0-1 [facility] Bilirubin, totalOrdered By: Juana Kaiser on 12-02-2024 Bilirubin [Mass/Vol] 0.50 mg/dL 0.20-1.00 [facility] Comment on above: For patients on eltr ombopag therapy, use of Dimension [place] TBIL is not recommended. Blood urea nitrogen (BUN)/cr eatinine ratioOrdered By: Juana Kaiser on 12-02-2024 Urea nitrogen/Creatinine [Mass ratio] 21.7 mg/mg High 10-20 [facility] CBC W/Diff, Automatedon 11-15 Absolute Lymph 3.31 X10 3/uL Normal 0.83-4.51 [facility] Comment on above: Performed By: #### L 500.4050, L100.0100 #### [facility] [address] [place], [address] Absolute Neut 5.4 X10 3/uL Normal 2.0-7.7 [facility] Comment on above: Performed By: #### L 500.4050, L100.0100 #### [facility] [address] [place], [address] Basophils/100 WBC (Bld) 0.7 % Normal 0-1 [facility] Comment on above: Performed By: #### L 500.4050, L100.0100 #### [facility] [address] [place], [address] Eosinophils/100 WBC (Bld) 4.9 % Normal 0-5 [facility] Comment on above: Performed By: #### L 500.4050, L100.0100 #### [facility] [address] [place], [address] Erythrocyte distribution width (RBC) [Ratio] 13.4 % Normal 11.6-14.6 [facility] Comment on above: Performed By: #### L 500.4050, L100.0100 #### [facility] [address] [place], [address] Hematocrit (Bld) [Volume fraction] 39.4 % Normal 37-47 [facility] Comment on above: Performed By: #### L 500.4050, L100.0100 #### [facility] [address] [place], [address] Hemoglobin (Bld) [Mass/Vol] 13.0 g/dL Normal 12.0-15.0 [facility] Comment on above: Performed By: #### L 500.4050, L100.0100 #### [facility] [address] [place], [address] IG% 0.200 Normal 0.0-0.9 [facility] Comment on above: Result Comment: IG% - Immature Granulocytes (promyelocytes, myelocytes and metamyelocytes) > 1% indicates that a LEFT SHIFT is Present. Performed By: #### L 500.4050, L100.0100 #### [facility] [address] [place], [address] Lymphocytes/100 WBC (Bld) 34.1 % Normal 19-41 [facility] Comment on above: Performed By: #### L 500.4050, L100.0100 #### [facility] [address] [place], [address] MCH (RBC) [Entitic mass] 30.7 pg Normal 27.0-32.0 [facility] Comment on above: Performed By: #### L 500.4050, L100.0100 #### [facility] [address] [place], [address] MCHC (RBC) [Mass/Vol] 33.0 g/dL Normal 32-[address] [facility] Comment on above: Performed By: #### L 500.4050, L100.0100 #### [facility] [address] [place], [address] MCV (RBC) [Entitic vol] 92.9 fL Normal 81-99 [facility] Comment on above: Performed By: #### L 500.4050, L100.0100 #### [facility] [address] [place], [address] Monocytes/100 WBC (Bld) 4.1 % Normal 0-10 [facility] Comment on above: Performed By: #### L 500.4050, L100.0100 #### [facility] [address] [place], [address] Neutrophils/100 WBC (Bld) 56.0 % Normal 47-70 [facility] Comment on above: Performed By: #### L 500.4050, L100.0100 #### [facility] [address] [place], [address] Nucleated RBC (Bld) [#/Vol] 0 10*3/uL Normal 0-5 [facility] Comment on above: Performed By: #### L 500.4050, L100.0100 #### [facility] [address] [place], [address] Platelet mean volume (Bld) [Entitic vol] 10.8 fL Normal 6.2-12.0 [facility] Comment on above: Performed By: #### L 500.4050, L100.0100 #### [facility] [address] [place], [address] Platelets (Bld) [#/Vol] 403 10*3/uL Normal 150-450 [facility] Comment on above: Performed By: #### L 500.4050, L100.0100 #### [facility] [address] [place], [address] RBC (Bld) [#/Vol] 4.24 10*6/uL Normal 4.2-5.4 [facility] Comment on above: Performed By: #### L 500.4050, L100.0100 #### [facility] [address] [place], [address] RDW SD 45.6 fl High 35.1-43.9 [facility] Comment on above: Performed By: #### L 500.4050, L100.0100 #### [facility] [address] [place], [address] WBC (Bld) [#/Vol] 9.7 10*3/uL Normal 4.4-11.0 [facility] Comment on above: Performed By: #### L 500.4050, L100.0100 #### [facility] [address] [place], [address] Carbon dioxide measurementOr dered By: Juana Kaiser on 12-02-2024 CO2 [Moles/Vol] 24.0 mmol/L 21.0-32.0 [facility] Chloride measurementOrdered By: Juana Kaiser on 12-02-2024 Chloride [Moles/Vol] 108 mmol/L High 98-107 [facility] Comprehensive Metabolic Prof ilon 12-02-2024 Albumin [Mass/Vol] 3.4 g/dL Normal 3.2-5.0 [facility] Comment on above: Performed By: #### L 500.4050, L100.0100 #### [facility] [address] [place], [address] Albumin/Globulin [Mass ratio] 0.8 {ratio} Low 0.9-2.4 [facility] Comment on above: Performed By: #### L 500.4050, L100.0100 #### [facility] [address] [place], [address] ALK P 113 U/L Normal 45-117 [facility] Comment on above: Performed By: #### L 500.4050, L100.0100 #### [facility] [address] [place], [address] ALT [Catalytic activity/Vol] 22 U/L Normal 13-56 [facility] Comment on above: Performed By: #### L 500.4050, L100.0100 #### [facility] [address] [place], [address] AST [Catalytic activity/Vol] 11 U/L Low 15-37 [facility] Comment on above: Performed By: #### L 500.4050, L100.0100 #### [facility] [address] [place], [address] Bilirubin [Mass/Vol] 0.50 mg/dL Normal 0.20-1.00 [facility] Comment on above: Result Comment: For patients on eltrombopag therapy, use of Dimension [place] TBIL is not recommended. Performed By: #### L 500.4050, L100.0100 #### [facility] [address] [place], [address] BUN/CRE 21.7 RATIO High 10-20 [facility] Comment on above: Performed By: #### L 500.4050, L100.0100 #### [facility] [address] [place], [address] CA,Total 9.7 mg/dL Normal 8.5-10.1 [facility] Comment on above: Performed By: #### L 500.4050, L100.0100 #### [facility] [address] [place], [address] Chloride [Moles/Vol] 108 mmol/L High 98-107 [facility] Comment on above: Performed By: #### L 500.4050, L100.0100 #### [facility] [address] [place], [address] CO2 [Moles/Vol] 24.0 mmol/L Normal 21.0-32.0 [facility] Comment on above: Performed By: #### L 500.4050, L100.0100 #### [facility] [address] [place], [address] Creatinine [Mass/Vol] 0.87 mg/dL Normal 0.55-1.[address] [facility] Comment on above: Result Comment: The validity of the calculated GFR GFRAA in patients over 70 years has not been determined. Clinical correlation is essential. Performed By: #### L 500.4050, L100.0100 #### [facility] [address] [place], [address] EST GFR - AA 85 mL/min Normal >60 [facility] Comment on above: Result Comment: Afri can [place] GFR Calc Performed By: #### L 500.4050, L100.0100 #### [facility] [address] [place], [address] GAP 7 Normal 5-15 [facility] Comment on above: Performed By: #### L 500.4050, L100.0100 #### [facility] [address] [place], [address] GFR/1.73 sq M.predicted among non-blacks MDRD (S/P/Bld) [Vol rate/Area] 70 mL/min/{1.73_m2} Normal >60 [facility] Comment on above: Result Comment: Non- GFR Calc Performed By: #### L 500.4050, L100.0100 #### [facility] [address] [place], [address] Globulin (S) [Mass/Vol] 4.2 g/dL Normal 2.2-4.2 [facility] Comment on above: Performed By: #### L 500.4050, L100.0100 #### [facility] [address] [place], [address] Glucose [Mass/Vol] 95 mg/dL Normal 74-106 [facility] Comment on above: Performed By: #### L 500.4050, L100.0100 #### [facility] [address] [place], [address] Potassium [Moles/Vol] 4.0 mmol/L Normal 3.5-5.[address] [facility] Comment on above: Performed By: #### L 500.4050, L100.0100 #### [facility] [address] [place], [address] Sodium [Moles/Vol] 139 mmol/L Normal 136-145 [facility] Comment on above: Performed By: #### L 500.4050, L100.0100 #### [facility] [address] [place], [address] T PROT 7.6 g/dL Normal 6.4-8.2 [facility] Comment on above: Performed By: #### L 500.4050, L100.0100 #### [facility] [address] [place], [address] Urea nitrogen [Mass/Vol] 19 mg/dL High 7-18 [facility] Comment on above: Performed By: #### L 500.4050, L100.0100 #### [facility] [address] [place], [address] Eosinophil percentageOrdered By: Juana Kaiser on 12-02-2024 Eosinophils/100 WBC (Bld) 4.9 % 0-5 [facility] Erythrocyte distribution wid th ratioOrdered By: Juana Kaiser on 12-02-2024 Erythrocyte distribution width (RBC) [Ratio] 13.4 % 11.6-14.6 [facility] Erythrocyte distribution wid th standard deviationOrdered By: Juana Kaiser on 12-02-2024 Erythrocyte distribution width (RBC) [Ratio] 45.6 fl High 35.1-43.9 [facility] Glomerular filtration rate ( GFR) estimationOrdered By: Juana Kaiser on 12-02-2024 GFR/1.73 sq M.predicted among non-blacks MDRD (S/P/Bld) [Vol rate/Area] 70 mL/min/{1.73_m2} >60 [facility] Comment on above: Non- GFR Calc Glucose measurementOrdered B y: Juana Kaiser on 12-02-2024 Glucose [Mass/Vol] 95 mg/dL 74-106 [facility] Hematocrit Auto (Bld) [Volum e fraction]Ordered By: [facility] [place] Awilda on 12-02-2024 Hematocrit (Bld) [Volume fraction] 39.4 % 37-47 [facility] Hemoglobin measurementOrdere d By: Juana Kaiser on 12-02-2024 Hemoglobin (Bld) [Mass/Vol] 13.0 g/dL 12.0-15.0 [facility] Immature granulocytes/100 WB C Auto (Bld)Ordered By: Juana Kaiser on 12-02-2024 Immature granulocytes/100 WBC (Bld) 0.200 % 0.0-0.9 [facility] Comment on above: IG% - Immature Granu locytes (promyelocytes, myelocytes and metamyelocytes) > 1% indicates that a LEFT SHIFT is Present. Laboratory - Chemistry and C hemistry - challengeOrdered By: Juana Kaiser on 12-02-2024 AST [Catalytic activity/Vol] 11 U/L Low 15-37 [facility] MCV (mean corpuscular volume ) determinationOrdered By: Juana Kaiser 12-02-2024 MCV (RBC) [Entitic vol] 92.9 fL 81-99 [facility] Mean corpuscular hemoglobin (MCH) determinationOrdered By: Juana Kaiser on 12-02-2024 MCH (RBC) [Entitic mass] 30.7 pg 27.0-32.0 [facility] Mean corpuscular hemoglobin concentration (MCHC) determinationOrdered By: Juana Kaiser on 12-02-2024 MCHC (RBC) [Mass/Vol] 33.0 g/dL 32-[address] [facility] Mean platelet volume determi nationOrdered By: Juana Kaiser on 12-02-2024 Platelet mean volume (Bld) [Entitic vol] 10.8 fL 6.2-12.0 [facility] Monocyte percentageOrdered B y: Juana Kaiser on 12-02-2024 Monocytes/100 WBC (Bld) 4.1 % 0-10 [facility] Neutrophil percentageOrdered By: Juana Kaiser on 12-02-2024 Neutrophils/100 WBC (Bld) 56.0 % 47-70 [facility] Nucleated red blood cell per centageOrdered By: Juana Kaiser on 12-02-2024 Nucleated RBC/100 WBC (Bld) [Ratio] 0 % 0-5 [facility] Platelet countOrdered By: Rocco Kaiesr on 12-02-2024 Platelets (Bld) [#/Vol] 403 10*3/uL 150-450 [facility] Potassium measurementOrdered By: Juana Kaiser on 12-02-2024 Potassium [Moles/Vol] 4.0 mmol/L 3.5-5.[address] [facility] RBC Auto (Bld) [#/Vol]Ordere d By: Juana Kaiser on 12-02-2024 RBC (Bld) [#/Vol] 4.24 10*6/uL 4.2-5.4 [facility] Serum anion gap measurementO rdered By: Juana Kaiser on 12-02-2024 Anion gap [Moles/Vol] 7 mmol/L 5-[address] [facility] Serum globulin measurementOr dered By: Juana Kaiser on 12-02-2024 Globulin (S) [Mass/Vol] 4.2 g/dL 2.2-4.2 [facility] Serum or plasma alanine good otransferase (ALT) measurementOrdered By: Juana Kaiser on 12-02-2024 ALT [Catalytic activity/Vol] 22 U/L 13-56 [facility] Serum or plasma albumin marleni urement (mass/volume)Ordered By: Juana Kaiser on 12-02-2024 Albumin [Mass/Vol] 3.4 g/dL 3.2-5.0 [facility] Serum or plasma alkaline kaye sphatase measurementOrdered By: Juana Kaiser on 12-02-2024 ALP [Catalytic activity/Vol] 113 U/L 45-117 [facility] Serum or plasma calcium marleni urement (mass/volume)Ordered By: Juana Kaiser on 12-02-2024 Calcium [Mass/Vol] 9.7 mg/dL 8.5-10.1 [facility] Serum or plasma creatinine m easurement (mass/volume)Ordered By: Juana Kaiser on 12-02-2024 Creatinine [Mass/Vol] 0.87 mg/dL 0.55-1.[address] [facility] Comment on above: The validity of the calculated GFR & GFRAA in patients over 70 years has not been determined. Clinical correlation is essential. Serum or plasma urea nitroge n measurement (mass/volume)Ordered By: Juana Kaiser on 12-02-2024 Urea nitrogen [Mass/Vol] 19 mg/dL High 7-18 [facility] Sodium levelOrdered By: Duke Kaiser on 12-02-2024 Sodium [Moles/Vol] 139 mmol/L 136-145 [facility] Total proteinOrdered By: Alida Kaiser on 12-02-2024 Protein [Mass/Vol] 7.6 g/dL 6.4-8.2 [facility] White blood cell (WBC) count Ordered By: Juana Kaiser on 12-02-2024 WBC (Bld) [#/Vol] 9.7 10*3/uL 4.4-11.0 [facility] Urine Cultureon 11-23-2024 [facility] Order Date: 11/21/24 Order Info: 630-4 - CUUR Below infection level. Presumptive E. coli Bumpass Count <1000 Normal [facility] Comment on above: Performed By: #### M 100.2200 #### [facility] [address] [place], [place], [address] Bilirubin Test strip Ql (U)O rdered By: Mickey Banuelos on 11-21-2024 Bilirubin Ql (U) Negative Negative [facility] Ketones Test strip Ql (U)Ord ered By: Mickey Banuelos on 11-21-2024 Ketones Ql (U) Negative Negative [facility] Microscopic analysis of urin e for red blood cells (RBC)Ordered By: Mickey Banuelos on 11-21-2024 Microscopic analysis of urine for red blood cells (RBC) 0 SEEN /hpf 0-5 [facility] Mucus LM Ql (Urine sed)Order ed By: Mickey Banuelos on 11-21-2024 Mucus Ql (Urine sed) 0 SEEN /hpf [facility] Nitrite Test strip Ql (U)Ord ered By: Mickey Banuelos on 11-21-2024 Nitrite Ql (U) Negative Negative [facility] Protein Test strip Ql (U)Ord ered By: Mickey Banuelos on 11-21-2024 Protein Ql (U) Negative Negative [facility] Squamous epithelial cells de tection in urine sediment by light microscopyOrdered By: Mickey Banuelos on 11-21-2024 Epithelial cells.squamous LM Ql (Urine sed) 0-5 SEEN /hpf 5-10 [facility] Urinalysis, Completeon 11-21 EPI,SQUAMOUS 0-5 SEEN Normal 5-10 [facility] Comment on above: Order Comment: Order Date: 11/21/24 Order Info: [id number] - [facility] TO SPECIFY Performed By: #### L 400.0001 #### [facility] [address] [place], [place], [id number] RBC 0 SEEN Normal 0-5 [facility] Comment on above: Order Comment: Order Date: 11/21/24 Order Info: [id number] - [facility] TO SPECIFY Performed By: #### L 400.0001 #### [facility] [address] [place], [place], [id number] WBC 0-5 SEEN Normal 0-5 [facility] Comment on above: Order Comment: Order Date: 11/21/24 Order Info: [id number] - [facility] TO SPECIFY Performed By: #### L 400.0001 #### [facility] [address] [place], [address] BACTERIA 0 SEEN Normal None Seen [facility] Comment on above: Order Comment: Order Date: 11/21/24 Order Info: [address] [place] [address] - [facility] TO SPECIFY Performed By: #### L 400.0001 #### [facility] [address] [place], [address] Mucus Ql (Urine sed) 0 SEEN Normal [facility] Comment on above: Order Comment: Order Date: 11/21/24 Order Info: [id number] - [facility] TO SPECIFY Performed By: #### L 400.0001 #### [facility] [address] [place], [address] Urine clarityOrdered By: Angella Banuelos on 11-21-2024 Clarity (U) Clear Clear [facility] Urine color determinationOrd ered By: Mickey Banuelos on 11-21-2024 Color (U) Straw Yellow [facility] Urine cultureOrdered By: Angella Banuelos on 11-21-2024 Bacteria identified Cx Nom (U) Presumptive E. coli Abnormal [facility] Urine glucose detectionOrder ed By: Mickey Banuelos on 11-21-2024 Glucose Ql (U) Normal mg/dl Normal [facility] Urine leukocyte esterase det ection by dipstickOrdered By: Mickey Banuelos on 11-21-2024 Leukocyte esterase Test strip Ql (U) 100 /ul High Negative [facility] Urine pHOrdered By: Mickey swanson on 11-21-2024 pH (U) 7.0 [pH] 5.0 - 8.0 [facility] Urine sediment bacteria coun t by microscopy (number/high power field)Ordered By: Mickey Banuelos on 11-21-2024 Bacteria LM.HPF (Urine sed) [#/Area] 0 /[HPF] None Seen [facility] Urine specific gravity measu rementOrdered By: Mickey Baneulos on 11-21-2024 Specific gravity (U) [Rel density] 1.010 1.002-1.030 [facility] Urine urobilinogen measureme ntOrdered By: Mickey Banuelos on 11-21-2024 Urobilinogen Ql (U) Normal mg/dl Normal [facility] White blood cell countOrdere d By: Mickey Banuelos on 11-21-2024 White blood cell count 0-5 SEEN /hpf 0-5 [facility] CBC W/Diff, Automatedon 10-2 Absolute Lymph 2.99 X10 3/uL Normal 0.83-4.51 [facility] Comment on above: Performed By: #### L 500.4050, L100.0100 #### [facility] [address] [place], [address] Absolute Neut 6.3 X10 3/uL Normal 2.0-7.7 [facility] Comment on above: Performed By: #### L 500.4050, L100.0100 #### [facility] [address] [place], [address] Basophils/100 WBC (Bld) 0.6 % Normal 0-1 [facility] Comment on above: Performed By: #### L 500.4050, L100.0100 #### [facility] [address] [place], [address] Eosinophils/100 WBC (Bld) 2.3 % Normal 0-5 [facility] Comment on above: Performed By: #### L 500.4050, L100.0100 #### [facility] [address] [place], [address] Erythrocyte distribution width (RBC) [Ratio] 14.0 % Normal 11.6-14.6 [facility] Comment on above: Performed By: #### L [id number], L100.0100 #### [facility] [address] [place], [address] Hematocrit (Bld) [Volume fraction] 42.7 % Normal 37-47 [facility] Comment on above: Performed By: #### L 500.4050, L100.0100 #### [facility] [address] [place], [address] Hemoglobin (Bld) [Mass/Vol] 13.5 g/dL Normal 12.0-15.0 [facility] Comment on above: Performed By: #### L 500.4050, L100.0100 #### [facility] [address] [place], [address] IG% 0.300 Normal 0.0-0.9 [facility] Comment on above: Result Comment: IG% - Immature Granulocytes (promyelocytes, myelocytes and metamyelocytes) > 1% indicates that a LEFT SHIFT is Present. Performed By: #### L 500.4050, L100.0100 #### [facility] [address] [place], [address] Lymphocytes/100 WBC (Bld) 30.0 % Normal 19-41 [facility] Comment on above: Performed By: #### L 500.4050, L100.0100 #### [facility] [address] [place], [address] MCH (RBC) [Entitic mass] 29.5 pg Normal 27.0-32.0 [facility] Comment on above: Performed By: #### L 500.4050, L100.0100 #### [facility] [address] [place], [address] MCHC (RBC) [Mass/Vol] 31.6 g/dL Low 32-[address] [facility] Comment on above: Performed By: #### L [id number], L100.0100 #### [facility] [address] [place], [address] MCV (RBC) [Entitic vol] 93.2 fL Normal 81-99 [facility] Comment on above: Performed By: #### L 500.4050, L100.0100 #### [facility] [address] [place], [address] Monocytes/100 WBC (Bld) 4.0 % Normal 0-10 [facility] Comment on above: Performed By: #### L 500.4050, L100.0100 #### [facility] [address] [place], [address] Neutrophils/100 WBC (Bld) 62.8 % Normal 47-70 [facility] Comment on above: Performed By: #### L 500.4050, L100.0100 #### [facility] [address] [place], [address] Nucleated RBC (Bld) [#/Vol] 0 10*3/uL Normal 0-5 [facility] Comment on above: Performed By: #### L 500.4050, L100.0100 #### [facility] [address] [place], [address] Platelet mean volume (Bld) [Entitic vol] 11.3 fL Normal 6.2-12.0 [facility] Comment on above: Performed By: #### L 500.4050, L100.0100 #### [facility] [address] [place], [address] Platelets (Bld) [#/Vol] 333 10*3/uL Normal 150-450 [facility] Comment on above: Performed By: #### L 500.4050, L100.0100 #### [facility] [address] [place], [address] RBC (Bld) [#/Vol] 4.58 10*6/uL Normal 4.2-5.4 [facility] Comment on above: Performed By: #### L 500.4050, L100.0100 #### [facility] [address] [place], [address] RDW SD 47.4 fl High 35.1-43.9 [facility] Comment on above: Performed By: #### L 500.4050, L100.0100 #### [facility] [address] [place], [address] WBC (Bld) [#/Vol] 10.0 10*3/uL Normal 4.4-11.0 [facility] Comment on above: Performed By: #### L 500.4050, L100.0100 #### [facility] [address] [place], [address] Comprehensive Metabolic Prof ilon 08-04-2024 Albumin [Mass/Vol] 3.9 g/dL Normal 3.2-5.0 [facility] Comment on above: Performed By: #### L 500.4050, L100.0100 #### [facility] [address] [place], [address] Albumin/Globulin [Mass ratio] 1.0 {ratio} Normal 0.9-2.4 [facility] Comment on above: Performed By: #### L 500.4050, L100.0100 #### [facility] [address] [place], [address] ALK P 105 U/L Normal 45-117 [facility] Comment on above: Performed By: #### L 500.4050, L100.0100 #### [facility] [address] [place], [address] ALT [Catalytic activity/Vol] 31 U/L Normal 13-56 [facility] Comment on above: Performed By: #### L 500.4050, L100.0100 #### [facility] [address] [place], [address] AST [Catalytic activity/Vol] 24 U/L Normal 15-37 [facility] Comment on above: Performed By: #### L 500.4050, L100.0100 #### [facility] [address] [place], [address] Bilirubin [Mass/Vol] 0.80 mg/dL Normal 0.20-1.00 [facility] Comment on above: Result Comment: For patients on eltrombopag therapy, use of Dimension [place] TBIL is not recommended. Performed By: #### L 500.4050, L100.0100 #### [facility] [address] [place], [address] BUN/CRE 14.6 RATIO Normal 10-20 [facility] Comment on above: Performed By: #### L 500.4050, L100.0100 #### [facility] [address] [place], [address] CA,Total 9.9 mg/dL Normal 8.5-10.1 [facility] Comment on above: Performed By: #### L 500.4050, L100.0100 #### [facility] [address] [place], [address] Chloride [Moles/Vol] 107 mmol/L Normal 98-107 [facility] Comment on above: Performed By: #### L 500.4050, L100.0100 #### [facility] [address] [place], [address] CO2 [Moles/Vol] 25.0 mmol/L Normal 21.0-32.0 [facility] Comment on above: Performed By: #### L 500.4050, L100.0100 #### [facility] [address] [place], [address] Creatinine [Mass/Vol] 0.96 mg/dL Normal 0.55-1.[address] [facility] Comment on above: Result Comment: The validity of the calculated GFR GFRAA in patients over 70 years has not been determined. Clinical correlation is essential. Performed By: #### L 500.4050, L100.0100 #### [facility] [address] [place], [address] EST GFR - AA 76 mL/min Normal >60 [facility] Comment on above: Result Comment: Afri can Salvadorean GFR Calc Performed By: #### L 500.4050, L100.0100 #### [facility] [address] [place], [address] GAP 6 Normal 5-15 [facility] Comment on above: Performed By: #### L 500.4050, L100.0100 #### [facility] [address] [place], [address] GFR/1.73 sq M.predicted among non-blacks MDRD (S/P/Bld) [Vol rate/Area] 63 mL/min/{1.73_m2} Normal >60 [facility] Comment on above: Result Comment: Non- GFR Calc Performed By: #### L 500.4050, L100.0100 #### [facility] [address] [place], [address] Globulin (S) [Mass/Vol] 4.0 g/dL Normal 2.2-4.2 [facility] Comment on above: Performed By: #### L 500.4050, L100.0100 #### [facility] [address] [place], [address] Glucose [Mass/Vol] 102 mg/dL Normal 74-106 [facility] Comment on above: Result Comment: Fast ing Glucose result from 100 to 125 mg/dL suggests IMPAIRED HOMEOSTASIS per A.D.A. criteria. Performed By: #### L 500.4050, L100.0100 #### [facility] [address] [place], [address] Potassium [Moles/Vol] 4.0 mmol/L Normal 3.5-5.[address] [facility] Comment on above: Performed By: #### L 500.4050, L100.0100 #### [facility] [address] [place], [address] Sodium [Moles/Vol] 138 mmol/L Normal 136-145 [facility] Comment on above: Performed By: #### L 500.4050, L100.0100 #### [facility] [address] [place], [address] T PROT 7.9 g/dL Normal 6.4-8.2 [facility] Comment on above: Performed By: #### L 500.4050, L100.0100 #### [facility] [address] [place], [address] Urea nitrogen [Mass/Vol] 14 mg/dL Normal 7-18 [facility] Comment on above: Performed By: #### L 500.4050, L100.0100 #### [facility] [address] [place], [address] Absolute lymphocyte countOrd ered By: Juana Kaiser on 02-05-2024 Lymphocytes Auto (Unsp spec) [#/Vol] 2.85 10*3/uL 0.83-4.51 [facility] Automated lymphocyte count a s percentage of total leukocytesOrdered By: Juana Kaiser on 02-05-2024 Lymphocytes/100 WBC Auto (Unsp spec) 41.1 % 19-41 [facility] Basophil percentageOrdered B y: Juana Kaiser on 02-05-2024 Basophils/100 WBC (Bld) 1.0 % 0-1 [facility] Bilirubin [Mass/Vol] 0.40 mg/dL 0.20-1.00 [facility] Comment on above: For patients on eltr ombopag therapy, use of Dimension [place] TBIL is not recommended. Chloride [Moles/Vol] 110 mmol/L 98-107 [facility] Eosinophils/100 WBC (Bld) 10.4 % 0-5 [facility] Glucose [Mass/Vol] 108 mg/dL 74-106 [facility] Comment on above: Fasting Glucose resu lt from 100 to 125 mg/dL suggests IMPAIRED HOMEOSTASIS per A.D.A. criteria. Hemoglobin (Bld) [Mass/Vol] 13.2 g/dL 12.0-15.0 [facility] Monocytes/100 WBC (Bld) 4.9 % 0-10 [facility] Neutrophils (Bld) [#/Vol] 2.9 10*3/uL 2.0-7.7 [facility] Neutrophils/100 WBC (Bld) 42.5 % 47-70 [facility] Potassium [Moles/Vol] 4.2 mmol/L 3.5-5.[address] [facility] Protein [Mass/Vol] 7.3 g/dL 6.4-8.2 [facility] Sodium [Moles/Vol] 140 mmol/L 136-145 [facility] WBC (Bld) [#/Vol] 6.9 10*3/uL 4.4-11.0 [facility] Determination of erythrocyte mean corpuscular volume (MCV)Ordered By: Juana Kaiser on 02-05-2024 MCV (RBC) [Entitic vol] 94.3 fL 81-99 [facility] Erythrocyte distribution wid th ratioOrdered By: Juana Kaiser on 02-05-2024 Erythrocyte distribution width (RBC) [Ratio] 13.4 % 11.6-14.6 [facility] Erythrocyte distribution wid th standard deviationOrdered By: Juana Kaiser on 02-05-2024 Erythrocyte distribution width (RBC) [Entitic vol] 46.3 fL 35.1-43.9 [facility] Hematocrit Auto (Bld) [Volum e fraction]Ordered By: Juana Kaiser on 02-05-2024 Hematocrit (Bld) [Volume fraction] 41.0 % 37-47 [facility] Immature granulocytes/100 WB C Auto (Bld)Ordered By: Juana Kaiser on 02-05-2024 Immature granulocytes/100 WBC (Bld) 0.100 % 0.0-0.9 [facility] Comment on above: IG% - Immature Granu locytes (promyelocytes, myelocytes and metamyelocytes) > 1% indicates that a LEFT SHIFT is Present. Laboratory - Chemistry and C hemistry - challengeOrdered By: Juana Kaiser on 02-05-2024 Albumin/Globulin [Mass ratio] 0.8 {ratio} 0.9-2.4 [facility] ALP [Catalytic activity/Vol] 90 U/L 45-117 [facility] ALT [Catalytic activity/Vol] 22 U/L 13-56 [facility] CO2 [Moles/Vol] 26.0 mmol/L 21.0-32.0 [facility] Globulin (S) [Mass/Vol] 4.0 g/dL 2.2-4.2 [facility] Urea nitrogen/Creatinine [Mass ratio] 14.4 mg/mg 10-20 [facility] - Hematology and Cell countsOrdered By: Juana Kaiser on 02-05-2024 MCH (RBC) [Entitic mass] 30.3 pg 27.0-32.0 [facility] MCHC (RBC) [Mass/Vol] 32.2 g/dL 32-[address] [facility] Nucleated RBC/100 WBC (Bld) [Ratio] 0 % 0-5 [facility] Platelet mean volume (Bld) [Entitic vol] 11.2 fL 6.2-12.0 [facility] Platelets (Bld) [#/Vol] 373 10*3/uL 150-450 [facility] No Panel InformationOrdered By: Juana Kaiser on 02-05-2024 Estimated GFR (MDRD) Amer 70 mL/min >60 [facility] Comment on above: GFR Calc Estimated GFR (MDRD) Non-Af Amer 58 mL/min >60 [facility] Comment on above: Non- GFR Calc RBC Auto (Bld) [#/Vol]Ordere d By: Juana Kaiser on 02-05-2024 RBC (Bld) [#/Vol] 4.35 10*6/uL 4.2-5.4 [facility] Serum or plasma calcium marleni urement (mass/volume)Ordered By: Juana Kaiser on 02-05-2024 Calcium [Mass/Vol] 9.0 mg/dL 8.5-10.1 [facility] Serum or plasma creatinine m easurement (mass/volume)Ordered By: Juana Kaiser on 02-05-2024 Creatinine [Mass/Vol] 1.04 mg/dL 0.55-1.[address] [facility] Comment on above: The validity of the calculated GFR & GFRAA in patients over 70 years has not been determined. Clinical correlation is essential. Serum or plasma urea nitroge n measurement (mass/volume)Ordered By: Juana Kaiser on 02-05-2024 Urea nitrogen [Mass/Vol] 15 mg/dL 7-18 [facility] Thin prep Papanicolaou smear with manual screeningOrdered By: Juana Kaiser on 02-05-2024 Thin prep Papanicolaou smear with manual screening 3.3 g/dL 3.2-5.0 [facility] Thin prep Papanicolaou smear with manual screening 17 U/L 15-37 [facility] Thin prep Papanicolaou smear with manual screening 4 5-15 [facility] BACTERIAL VAGINOSIS NAATon 0 01-31-2024 Lactobacillus crispatus+gasseri+jense luis fernando + Gardnerella vaginalis + Atopobium vaginae rRNA JAHAIRA+probe Ql (Vag fld) Negative Negative for bacterial vaginosis [facility] BONNIE/TRICHOMONAS NAATon 0 01-31-2024 C. glabrata RNA JAHAIRA+probe Ql (Vag fld) Negative Negative for Bonnie glabrata [facility] Bonnie sp DNA JAHAIRA+probe Ql (Vag fld) Negative Negative for Bnonie species [facility] T. vaginalis DNA JAHAIRA+probe Ql (Unsp spec) Negative Negative for Trichomonas vaginalis by amplification [facility] UA DIP, URINE (POC)on 2023 BILIRUBIN UA (POCT) Negative Negative [facility] CLARITY UA (POCT) Clear [facility] COLOR UA (POCT) Yellow [facility] GLUCOSE UA (POCT) Negative Negative mg/dL [facility] Hemoglobin Ql (U) Negative Negative [facility] KETONE UA (POCT) Negative Negative mg/dL [facility] LEUKOCYTES UA (POCT) Trace Abnormal Negative [facility] NITRITE UA (POCT) Negative [facility] PH UA (POCT) 5.5 4.5 - 8.0 [facility] Protein Ql (U) Negative Negative mg/dL [facility] SPECIFIC GRAVITY UA (POCT) >=1.030 1.005 - 1.030 [facility] UROBILINOGEN UA (POCT) 0.2 E.U./dL Normal E.U./ dL [facility] Absolute lymphocyte countOrd ered By: Juana Kaiser on 11-07-2023 Lymphocytes Auto (Unsp spec) [#/Vol] 1.24 10*3/uL 0.83-4.51 [facility] Alternaria alternata IgE ser umOrdered By: [facility]23 A. alternata IgE Qn (S) <0.10 kU/L Class 0 [facility] Automated lymphocyte count a s percentage of total leukocytesOrdered By: [facility] [place] Awilda on 11-07-2023 Lymphocytes/100 WBC Auto (Unsp spec) 17.4 % 19-41 [facility] Basophil percentageOrdered B y: Juana Kaiser on 11-07-2023 Basophils/100 WBC (Bld) 0.4 % 0-1 [facility] Bilirubin [Mass/Vol] 0.50 mg/dL 0.20-1.00 [facility] Comment on above: For patients on eltr ombopag therapy, use of Dimension [place] TBIL is not recommended. Chloride [Moles/Vol] 108 mmol/L 98-107 [facility] Eosinophils/100 WBC (Bld) 0.3 % 0-5 [facility] Glucose [Mass/Vol] 108 mg/dL 74-106 [facility] Comment on above: Fasting Glucose resu lt from 100 to 125 mg/dL suggests IMPAIRED HOMEOSTASIS per A.D.A. criteria. Hemoglobin (Bld) [Mass/Vol] 13.6 g/dL 12.0-15.0 [facility] Monocytes/100 WBC (Bld) 1.7 % 0-10 [facility] Neutrophils (Bld) [#/Vol] 5.7 10*3/uL 2.0-7.7 [facility] Neutrophils/100 WBC (Bld) 79.9 % 47-70 [facility] Potassium [Moles/Vol] 4.2 mmol/L 3.5-5.[address] [facility] Protein [Mass/Vol] 8.0 g/dL 6.4-8.2 [facility] Sodium [Moles/Vol] 135 mmol/L 136-145 [facility] WBC (Bld) [#/Vol] 7.1 10*3/uL 4.4-11.0 [facility] Chocolate IgE serumOrdered B y: Juana Kaiser on 11-07-2023 Chocolate IgE Qn (S) <0.10 kU/L Class 0 [facility] Determination of erythrocyte mean corpuscular volume (MCV)Ordered By: Juana Kaiser on 11-07-2023 MCV (RBC) [Entitic vol] 91.7 fL 81-99 [facility] Erythrocyte distribution wid th ratioOrdered By: Juana Kaiser on 11-07-2023 Erythrocyte distribution width (RBC) [Ratio] 13.2 % 11.6-14.6 [facility] Erythrocyte distribution wid th standard deviationOrdered By: Juana Kaiser on 11-07-2023 Erythrocyte distribution width (RBC) [Entitic vol] 43.9 fL 35.1-43.9 [facility] Hematocrit Auto (Bld) [Volum e fraction]Ordered By: Juana Kaiser on 11-07-2023 Hematocrit (Bld) [Volume fraction] 42.2 % 37-47 [facility] Immature granulocytes/100 WB C Auto (Bld)Ordered By: Juana Kaiser on 11-07-2023 Immature granulocytes/100 WBC (Bld) 0.300 % 0.0-0.9 [facility] Comment on above: IG% - Immature Granu locytes (promyelocytes, myelocytes and metamyelocytes) > 1% indicates that a LEFT SHIFT is Present. Laboratory - Chemistry and C hemistry - challengeOrdered By: Juana Kaiser on 11-07-2023 Albumin/Globulin [Mass ratio] 0.9 {ratio} 0.9-2.4 [facility] ALP [Catalytic activity/Vol] 88 U/L 45-117 [facility] ALT [Catalytic activity/Vol] 26 U/L 13-56 [facility] CO2 [Moles/Vol] 24.0 mmol/L 21.0-32.0 [facility] Globulin (S) [Mass/Vol] 4.3 g/dL 2.2-4.2 [facility] Urea nitrogen/Creatinine [Mass ratio] 14.2 mg/mg 10-20 [facility] Laboratory - Hematology and Cell countsOrdered By: Juana Kaiser on 11-07-2023 MCH (RBC) [Entitic mass] 29.6 pg 27.0-32.0 [facility] MCHC (RBC) [Mass/Vol] 32.2 g/dL 32-[address] [facility] Nucleated RBC/100 WBC (Bld) [Ratio] 0 % 0-5 [facility] Platelets (Bld) [#/Vol] 387 10*3/uL 150-450 [facility] Laboratory - Miscellaneous t estsOrdered By: Juana Kaiser on 11-07-2023 Service comment (Unsp spec) [Interp] Comment . [facility] Comment on above: Levels of Specific I gE Class Description of Class ----- < 0.10 0 Negative 0.10 - 0.31 0/I Equivocal/Low 0.32 - 0.55 I Low 0.56 - 1.40 II Moderate 1.41 - 3.90 III High 3.91 - 19.00 IV Very High 19.01 - 100.00 V Very High >100.00 Very High [place] cedar IgEOrdered By : Juana Kaiser on 11-07-2023 Mountain Juniper IgE Qn (S) 0.25 kU/L Class 0/I [facility] No Panel InformationOrdered By: Juana Kaiser on 11-07-2023 Aspergillus fumigatus Allergen <0.10 kU/L Class 0 [facility] Common Ragweed (Short) Allergen 46.70 kU/L Class V [facility] Belarusian Plantain Allergen (RAST) 0.16 kU/L Class 0/I [facility] Estimated GFR (MDRD) Amer 81 mL/min >60 [facility] Comment on above: GFR Calc Estimated GFR (MDRD) Non-Af Amer 67 mL/min >60 [facility] Comment on above: Non- GFR Calc Maple ([place]) Allergen IgE Ab 1.07 kU/L Class II [facility] Mussel Allergen IgE Antibody <0.10 kU/L Class 0 [facility] Shrimp Allergen 0.28 kU/L Class 0/I [facility] Penicillium notatum IgE seru mOrdered By: Juana Kaiser on 11-07-2023 P. notatum IgE Qn (S) <0.10 kU/L Class [address] [facility] Platelet mean volume Kristian-Ec ker (Bld) [Entitic vol]Ordered By: Juana Kaiser on 11-07-2023 Platelet mean volume (Bld) [Entitic vol] 11.0 fL 6.2-12.0 [facility] RBC Auto (Bld) [#/Vol]Ordere d By: Juana Kaiser on 11-07-2023 RBC (Bld) [#/Vol] 4.60 10*6/uL 4.2-5.4 [facility] Rough pigweed specific IgE a ntibody assayOrdered By: Juana Kaiser on 11-07-2023 Rough Pigweed IgE Qn (S) 0.15 kU/L Class 0/I [facility] Serum Salvadorean sycamore IgE antibody assay (units/volume)Ordered By: Juana Kaiser on 11-07-2023 Salvadorean [place] IgE Qn (S) <0.10 kU/L Class 0 [facility] Serum B[place] grass IgE anti body assay (units/volume)Ordered By: Juana Kaiser on 11-07-2023 B[place] grass IgE Qn (S) 1.17 kU/L Class II [facility] Serum Cladosporium herbarum IgE antibody assay (units/volume)Ordered By: Juana Kaiser on 11-07-2023 C. herbarum IgE Qn (S) <0.10 kU/L Class 0 [facility] Serum Dermatophagoides farin ae specific IgE antibody assay (units/volume)Ordered By: Juana Kaiser on 11-07-2023 Salvadorean house dust mite IgE Qn (S) 28.10 kU/L Class V [facility] Serum house dust mi te IgE antibody assay (units/volume)Ordered By: Juana Kaiser on 11-07-2023 house dust mite IgE Qn (S) 17.80 kU/L Class IV [facility] Serum Alin grass IgE anti body assay (units/volume)Ordered By: Juana Kaiser on 11-07-2023 Alin grass IgE Qn (S) 2.07 kU/L Class III [facility] Serum [place] blue grass Ig E antibody assay (units/volume)Ordered By: Juana Kaiser on 11-07-2023 [place] blue grass IgE Qn (S) 4.82 kU/L Class IV [facility] Serum Mucor racemosus IgE an tibody assay (units/volume)Ordered By: Juana Kaiser on 11-07-2023 Mucor racemosus IgE Qn (S) <0.10 kU/L Class 0 [facility] Serum Periplaneta americana IgE antibody assay (units/volume)Ordered By: Juana Kaiser on 11-07-2023 [place] Cockroach IgE Qn (S) 0.15 kU/L Class 0/I [facility] Serum bahia grass IgE antibo dy assay (units/volume)Ordered By: Juana Kaiser on 11-07-2023 Bahia grass IgE Qn (S) 2.80 kU/L Class III [facility] Serum beef IgE antibody assa y (units/volume)Ordered By: Juana Kaiser on 11-07-2023 Beef IgE Qn (S) <0.10 kU/L Class 0 [facility] Serum cat dander IgE antibod y assay (units/volume)Ordered By: Juana Kaiser on 11-07-2023 Cat dander IgE Qn (S) 46.80 kU/L Class V [facility] Serum codfish IgE antibody a ssay (units/volume)Ordered By: Juana Kaiser on 11-07-2023 Codfish IgE Qn (S) <0.10 kU/L Class 0 [facility] Serum corn IgE antibody assa y (units/volume)Ordered By: Juana Kaiser on 11-07-2023 [place] IgE Qn (S) 0.14 kU/L Class 0/I [facility] Serum cow milk IgE antibody assay (units/volume)Ordered By: Juana Kaiser on 11-07-2023 Cow milk IgE Qn (S) 0.16 kU/L Class 0/I [facility] Serum dog epithelium IgE ant ibody assay (units/volume)Ordered By: Juana Kaiser on 11-07-2023 Dog epithelium IgE Qn (S) 1.88 kU/L Class III [facility] Serum hazelnut pollen IgE an tibody assay (units/volume)Ordered By: Juana Kaiser on 11-07-2023 Hazelnut Pollen IgE Qn (S) 17.30 kU/L Class IV [facility] Serum mugwort IgE antibody a ssay (units/volume)Ordered By: Juana Kaiser on 11-07-2023 Mugwort IgE Qn (S) 0.12 kU/L Class 0/I [facility] Serum nettle IgE antibody as say (units/volume)Ordered By: Juana Kaiser on 11-07-2023 Nettle IgE Qn (S) <0.10 kU/L Class 0 [facility] Serum or plasma calcium marleni urement (mass/volume)Ordered By: Juana Kaiser on 11-07-2023 Calcium [Mass/Vol] 10.4 mg/dL 8.5-10.1 [facility] Serum or plasma creatinine m easurement (mass/volume)Ordered By: Juana Kaiser on 11-07-2023 Creatinine [Mass/Vol] 0.92 mg/dL 0.55-1.[address] [facility] Comment on above: The validity of the calculated GFR & GFRAA in patients over 70 years has not been determined. Clinical correlation is essential. Serum or plasma urea nitroge n measurement (mass/volume)Ordered By: Juana Kaiser on 11-07-2023 Urea nitrogen [Mass/Vol] 13 mg/dL 7-18 [facility] Serum peanut IgE antibody as say (units/volume)Ordered By: Juana Kaiser on 11-07-2023 Peanut IgE Qn (S) 0.73 kU/L Class II [facility] Serum pork IgE antibody assa y (units/volume)Ordered By: Juana Kaiser on 11-07-2023 Pork IgE Qn (S) <0.10 kU/L Class 0 [facility] Serum salmon IgE antibody as say (units/volume)Ordered By: Juana Kaiser on 11-07-2023 [place] IgE Qn (S) <0.10 kU/L Class 0 [facility] Serum sheep sorrel IgE antib ortiz assay (units/volume)Ordered By: Juana Kaiser on 11-07-2023 Sheep [place] IgE Qn (S) <0.10 kU/L Class 0 [facility] Serum soybean IgE antibody a ssay (units/volume)Ordered By: Juana Kaiser on 11-07-2023 Soybean IgE Qn (S) <0.10 kU/L Class 0 [facility] Serum sweet gum IgE radioall ergosorbent test (RAST) class determinationOrdered By: Juana Kaiser on 11-07-2023 Serum sweet gum IgE radioallergosorbent test (RAST) class determination 0.68 kU/L Class II [facility] Serum tuna IgE antibody assa y (units/volume)Ordered By: Juana Kaiser on 11-07-2023 Tuna IgE Qn (S) <0.10 kU/L Class 0 [facility] Serum wheat IgE antibody ass ay (units/volume)Ordered By: Juana Kaiser on 11-07-2023 Wheat IgE Qn (S) <0.10 kU/L Class 0 [facility] Serum white elm IgE antibody assay (units/volume)Ordered By: Juana Kaiser on 11-07-2023 White Elm IgE Qn (S) 0.72 kU/L Class II [facility] Serum white mulberry IgE ant ibody assay (units/volume)Ordered By: Juana Kaiser on 11-07-2023 White mulberry IgE Qn (S) <0.10 kU/L Class 0 [facility] Serum white oak IgE antibody assay (units/volume)Ordered By: Juana Kaiser on 11-07-2023 [place] IgE Qn (S) 4.14 kU/L Class IV [facility] Serum whole egg IgE antibody assay (units/volume)Ordered By: Juana Kaiser on 11-07-2023 Whole Egg IgE Qn (S) 0.21 kU/L Class 0/I [facility] Comment on above: Performed at: [address] [id number] Director: Gurvinder Saucedo MD, Phone: [phone] Stemphylium herbarum IgE ser umOrdered By: Juana Kaiser on 11-07-2023 Stemphylium botryosum IgE Qn (S) <0.10 kU/L Class 0 [facility] Thin prep Papanicolaou smear with manual screeningOrdered By: Juana Kaiser on 11-07-2023 Thin prep Papanicolaou smear with manual screening 3.7 g/dL 3.2-5.0 [facility] Thin prep Papanicolaou smear with manual screening 15 U/L 15-37 [facility] Thin prep Papanicolaou smear with manual screening 3 5-15 [facility] [place] hick[place] IgE serumOrder ed By: Juana Kaiser on 11-07-2023 [place] IgE Qn (S) 20.80 kU/L Class V [facility] Basophil percentageOrdered B y: Juana Kaiser on 10-16-2023 Bilirubin [Mass/Vol] 0.50 mg/dL 0.20-1.00 [facility] Comment on above: For patients on eltr ombopag therapy, use of Dimension [place] TBIL is not recommended. Chloride [Moles/Vol] 110 mmol/L 98-107 [facility] Glucose [Mass/Vol] 108 mg/dL 74-106 [facility] Comment on above: Fasting Glucose resu lt from 100 to 125 mg/dL suggests IMPAIRED HOMEOSTASIS per A.D.A. criteria. Potassium [Moles/Vol] 4.2 mmol/L 3.5-5.[address] [facility] Protein [Mass/Vol] 7.6 g/dL 6.4-8.2 [facility] Sodium [Moles/Vol] 139 mmol/L 136-145 [facility] Laboratory - Chemistry and C hemistry - challengeOrdered By: Juana Kaiser on 10-16-2023 ALP [Catalytic activity/Vol] 92 U/L 45-117 [facility] ALT [Catalytic activity/Vol] 20 U/L 13-56 [facility] CO2 [Moles/Vol] 25.0 mmol/L 21.0-32.0 [facility] Globulin (S) [Mass/Vol] 4.2 g/dL 2.2-4.2 [facility] Urea nitrogen/Creatinine [Mass ratio] 14.7 mg/mg 10-20 [facility] No Panel InformationOrdered By: Juana Kaiser on 10-16-2023 Estimated GFR (MDRD) Amer 71 mL/min >60 [facility] Comment on above: GFR Calc Estimated GFR (MDRD) Non-Af Amer 59 mL/min >60 [facility] Comment on above: Non- GFR Calc Serum or plasma albumin marleni urement (mass/volume)Ordered By: Juana Kaiser on 10-16-2023 Albumin [Mass/Vol] 3.4 g/dL 3.2-5.0 [facility] Serum or plasma albumin/glob ulin mass ratioOrdered By: Juana Kaiser on 10-16-2023 Albumin/Globulin [Mass ratio] 0.8 {ratio} 0.9-2.4 [facility] Serum or plasma calcium marleni urement (mass/volume)Ordered By: Juana Kaiser on 10-16-2023 Calcium [Mass/Vol] 9.7 mg/dL 8.5-10.1 [facility] Serum or plasma creatinine m easurement (mass/volume)Ordered By: Juana Kaiser on 10-16-2023 Creatinine [Mass/Vol] 1.02 mg/dL 0.55-1.[address] [facility] Comment on above: The validity of the calculated GFR & GFRAA in patients over 70 years has not been determined. Clinical correlation is essential. Serum or plasma urea nitroge n measurement (mass/volume)Ordered By: Juana Kaiser on 10-16-2023 Urea nitrogen [Mass/Vol] 15 mg/dL 7-18 [facility] Thin prep Papanicolaou smear with manual screeningOrdered By: Juana Kaiser on 10-16-2023 Thin prep Papanicolaou smear with manual screening 17 U/L 15-37 [facility] Thin prep Papanicolaou smear with manual screening 4 5-15 [facility] Absolute lymphocyte countOrd ered By: Juana Kaiser on 09-03-2023 Lymphocytes Auto (Unsp spec) [#/Vol] 2.99 10*3/uL 0.83-4.51 [facility] Basophil percentageOrdered B y: Juana Kaiser on 09-03-2023 Basophils/100 WBC (Bld) 0.7 % 0-1 [facility] Bilirubin [Mass/Vol] 0.50 mg/dL 0.20-1.00 [facility] Comment on above: For patients on eltr ombopag therapy, use of Dimension [place] TBIL is not recommended. Chloride [Moles/Vol] 108 mmol/L 98-107 [facility] Eosinophils/100 WBC (Bld) 7.0 % 0-5 [facility] Glucose [Mass/Vol] 105 mg/dL 74-106 [facility] Comment on above: Fasting Glucose resu lt from 100 to 125 mg/dL suggests IMPAIRED HOMEOSTASIS per A.D.A. criteria. Neutrophils (Bld) [#/Vol] 6.2 10*3/uL 2.0-7.7 [facility] Neutrophils/100 WBC (Bld) 59.6 % 47-70 [facility] Potassium [Moles/Vol] 3.8 mmol/L 3.5-5.[address] [facility] Protein [Mass/Vol] 7.6 g/dL 6.4-8.2 [facility] Sodium [Moles/Vol] 140 mmol/L 136-145 [facility] WBC (Bld) [#/Vol] 10.3 10*3/uL 4.4-11.0 [facility] Blood erythrocytes count (nu mber/volume)Ordered By: Juana Kaiser on 09-03-2023 RBC (Bld) [#/Vol] 4.39 10*6/uL 4.2-5.4 [facility] Blood hemoglobin measurement (mass/volume)Ordered By: Juana Kaiser on 09-03-2023 Hemoglobin (Bld) [Mass/Vol] 13.4 g/dL 12.0-15.0 [facility] Blood lymphocytes/100 leukoc ytesOrdered By: Juana Kaiser on 09-03-2023 Lymphocytes/100 WBC (Bld) 28.9 % 19-41 [facility] Blood monocytes/100 leukocyt esOrdered By: Juanadesire Kaiser on 09-03-2023 Monocytes/100 WBC (Bld) 3.5 % 0-10 [facility] Blood platelet mean volumeOr dered By: Juana Kaiser on 09-03-2023 Platelet mean volume (Bld) [Entitic vol] 11.8 fL 6.2-12.0 [facility] Determination of erythrocyte mean corpuscular volume (MCV)Ordered By: Juanadesire Kaiser on 09-03-2023 MCV (RBC) [Entitic vol] 95.7 fL 81-99 [facility] Hematocrit Auto (Bld) [Volum e fraction]Ordered By: [facility] [place] Awilda on 09-03-2023 Hematocrit (Bld) [Volume fraction] 42.0 % 37-47 [facility] Laboratory - Chemistry and C hemistry - challengeOrdered By: [facility] [place] Awilda on 09-03-2023 ALP [Catalytic activity/Vol] 99 U/L 45-117 [facility] ALT [Catalytic activity/Vol] 43 U/L 13-56 [facility] CO2 [Moles/Vol] 25.0 mmol/L 21.0-32.0 [facility] Globulin (S) [Mass/Vol] 4.0 g/dL 2.2-4.2 [facility] Urea nitrogen/Creatinine [Mass ratio] 14.6 mg/mg 10-20 [facility] Laboratory - Hematology and Cell countsOrdered By: Juanadesire Kaiser on 09-03-2023 Erythrocyte distribution width (RBC) [Entitic vol] 48.5 fL 35.1-43.9 [facility] Erythrocyte distribution width (RBC) [Ratio] 13.7 % 11.6-14.6 [facility] Immature granulocytes/100 WBC (Bld) 0.300 % 0.0-0.9 [facility] Comment on above: IG% - Immature Granu locytes (promyelocytes, myelocytes and metamyelocytes) > 1% indicates that a LEFT SHIFT is Present. MCH (RBC) [Entitic mass] 30.5 pg 27.0-32.0 [facility] Nucleated RBC/100 WBC (Bld) [Ratio] 0 % 0-5 [facility] MCHC Auto (RBC) [Mass/Vol]Or dered By: Juana Kaiser on 09-03-2023 MCHC (RBC) [Mass/Vol] 31.9 g/dL 32-[address] [facility] No Panel InformationOrdered By: Juana Kaiser on 09-03-2023 Estimated GFR (MDRD) Amer 71 mL/min >60 [facility] Comment on above: GFR Calc Estimated GFR (MDRD) Non-Af Amer 58 mL/min >60 [facility] Comment on above: Non- GFR Calc Platelets bldOrdered By: Alida Kaiser on 09-03-2023 Platelets (Bld) [#/Vol] 360 10*3/uL 150-450 [facility] Serum or plasma albumin marleni urement (mass/volume)Ordered By: Juana Kaiser on 09-03-2023 Albumin [Mass/Vol] 3.6 g/dL 3.2-5.0 [facility] Serum or plasma albumin/glob ulin mass ratioOrdered By: Juana Kaiser on 09-03-2023 Albumin/Globulin [Mass ratio] 0.9 {ratio} 0.9-2.4 [facility] Serum or plasma calcium marleni urement (mass/volume)Ordered By: Juana Kaiser on 09-03-2023 Calcium [Mass/Vol] 9.0 mg/dL 8.5-10.1 [facility] Serum or plasma creatinine m easurement (mass/volume)Ordered By: Juana Kaiser on 09-03-2023 Creatinine [Mass/Vol] 1.03 mg/dL 0.55-1.[address] [facility] Comment on above: The validity of the calculated GFR & GFRAA in patients over 70 years has not been determined. Clinical correlation is essential. Serum or plasma urea nitroge n measurement (mass/volume)Ordered By: Juana Kaiser on 09-03-2023 Urea nitrogen [Mass/Vol] 15 mg/dL 7-18 [facility] Thin prep Papanicolaou smear with manual screeningOrdered By: Juana Kaiser on 09-03-2023 Thin prep Papanicolaou smear with manual screening 53 U/L 15-37 [facility] Thin prep Papanicolaou smear with manual screening 7 5-15 [facility] Absolute lymphocyte countOrd ered By: Adrian Decker on 07-16-2023 Lymphocytes Auto (Unsp spec) [#/Vol] 1.04 10*3/uL 0.83-4.51 [facility] Basophil percentageOrdered B y: Adrian Decker on 07-16-2023 Basophils/100 WBC (Bld) 0.3 % 0-1 [facility] Chloride [Moles/Vol] 112 mmol/L 98-107 [facility] Eosinophils/100 WBC (Bld) 0.2 % 0-5 [facility] Glucose [Mass/Vol] 136 mg/dL 74-106 [facility] Comment on above: Fasting Glucose resu lt greater than or equal to 126 mg/dL suggests DIABETES MELLITUS per A.D.A. criteria. Neutrophils (Bld) [#/Vol] 7.7 10*3/uL 2.0-7.7 [facility] Neutrophils/100 WBC (Bld) 83.3 % 47-70 [facility] Potassium [Moles/Vol] 4.0 mmol/L 3.5-5.[address] [facility] Sodium [Moles/Vol] 141 mmol/L 136-145 [facility] WBC (Bld) [#/Vol] 9.3 10*3/uL 4.4-11.0 [facility] Blood erythrocytes count (nu mber/volume)Ordered By: Adrian Decker on 07-16-2023 RBC (Bld) [#/Vol] 4.49 10*6/uL 4.2-5.4 [facility] Blood hemoglobin measurement (mass/volume)Ordered By: Adrian Decker on 07-16-2023 Hemoglobin (Bld) [Mass/Vol] 13.6 g/dL 12.0-15.0 [facility] Blood lymphocytes/100 leukoc ytesOrdered By: Adrian Decker on 07-16-2023 Lymphocytes/100 WBC (Bld) 11.2 % 19-41 [facility] Blood monocytes/100 leukocyt esOrdered By: Adrian Decker on 07-16-2023 Monocytes/100 WBC (Bld) 4.5 % 0-10 [facility] Blood platelet mean volumeOr dered By: Adrian Decker on 07-16-2023 Platelet mean volume (Bld) [Entitic vol] 10.7 fL 6.2-12.0 [facility] Determination of erythrocyte mean corpuscular volume (MCV)Ordered By: Adrian Decker on 07-16-2023 MCV (RBC) [Entitic vol] 93.5 fL 81-99 [facility] Hematocrit Auto (Bld) [Volum e fraction]Ordered By: Adrian Decker on 07-16-2023 Hematocrit (Bld) [Volume fraction] 42.0 % 37-47 [facility] Influenza virus A and B and SARS-CoV-2 (COVID-19) Ag panel - Upper respiratory specimOrdered By: Adrian Decker on 07-16-2023 SARS-CoV-2 (COVID-19) RNA JAHAIRA+probe Ql (Resp) [facility] SARS-CoV-2 (COVID-19) RNA JAHAIRA+probe Ql (Resp) [facility] Laboratory - Chemistry and C hemistry - challengeOrdered By: Adrian Decker on 07-16-2023 CO2 [Moles/Vol] 24.0 mmol/L 21.0-32.0 [facility] Natriuretic peptide B (Bld) [Mass/Vol] 44.9 pg/mL 0-100 [facility] Urea nitrogen/Creatinine [Mass ratio] 15.6 mg/mg 10-20 [facility] Laboratory - Hematology and Cell countsOrdered By: Adrian Decker on 07-16-2023 Erythrocyte distribution width (RBC) [Entitic vol] 46.8 fL 35.1-43.9 [facility] Erythrocyte distribution width (RBC) [Ratio] 13.7 % 11.6-14.6 [facility] Immature granulocytes/100 WBC (Bld) 0.500 % 0.0-0.9 [facility] Comment on above: IG% - Immature Granu locytes (promyelocytes, myelocytes and metamyelocytes) > 1% indicates that a LEFT SHIFT is Present. MCH (RBC) [Entitic mass] 30.3 pg 27.0-32.0 [facility] Nucleated RBC/100 [facility]Bld) [facility]] 0 [facility] [Mass/Vol]Or dered By: Adrian Decker on 07-16-2023 MCHC (RBC) [Mass/Vol] 32.4 g/dL 32-[address] [facility] No Panel InformationOrdered By: Adrian Decker on 07-16-2023 Estimated Creatinine Clearance Calc 86.12 ml/min [facility] Estimated GFR (MDRD) Amer 99 mL/min >60 [facility] Comment on above: GFR Calc Estimated GFR (MDRD) Non-Af Amer 82 mL/min >60 [facility] Comment on above: Non- GFR Calc Troponin I High Sensitivity 22 pg/mL 3.0-54.0 [facility] Comment on above: Please Note: [place] t Units and Gender Specific Reference Ranges. For more information see Policy Stat Procedure [place] High Sensitivity Troponin (TNIH) and attachments. Platelets bldOrdered By: Krista Decker on 07-16-2023 Platelets (Bld) [#/Vol] 299 10*3/uL 150-450 [facility] Serum or plasma calcium marleni urement (mass/volume)Ordered By: Adrian Decker on 07-16-2023 Calcium [Mass/Vol] 9.0 mg/dL 8.5-10.1 [facility] Serum or plasma creatinine m easurement (mass/volume)Ordered By: Adrian Decker on 07-16-2023 Creatinine [Mass/Vol] 0.77 mg/dL 0.55-1.[address] [facility] Comment on above: The validity of the calculated GFR & GFRAA in patients over 70 years has not been determined. Clinical correlation is essential. Serum or plasma urea nitroge n measurement (mass/volume)Ordered By: Adrian Decker on 07-16-2023 Urea nitrogen [Mass/Vol] 12 mg/dL 7-18 [facility] Thin prep Papanicolaou smear with manual screeningOrdered By: Adrian Decker on 07-16-2023 Thin prep Papanicolaou smear with manual screening 5 5-15 [facility] Upper respiratory specimen i nfluenza A virus, influenza B virus, and severe acute respiratory syndromOrdered By: Adrian Decker on 07-16-2023 Upper respiratory specimen influenza A virus, influenza B virus, and severe acute respiratory syndrom [facility] Absolute lymphocyte countOrd ered By: Juana Kaiser on 06-11-2023 Lymphocytes Auto (Unsp spec) [#/Vol] 2.69 10*3/uL 0.83-4.51 [facility] Basophil percentageOrdered B y: Juana Kaiser on 06-11-2023 Basophils/100 WBC (Bld) 0.9 % 0-1 [facility] Bilirubin [Mass/Vol] 0.50 mg/dL 0.20-1.00 [facility] Comment on above: For patients on eltr ombopag therapy, use of Dimension [place] TBIL is not recommended. Chloride [Moles/Vol] 109 mmol/L 98-107 [facility] Eosinophils/100 WBC (Bld) 10.6 % 0-5 [facility] Glucose [Mass/Vol] 109 mg/dL 74-106 [facility] Comment on above: Fasting Glucose resu lt from 100 to 125 mg/dL suggests IMPAIRED HOMEOSTASIS per A.D.A. criteria. Neutrophils (Bld) [#/Vol] 4.0 10*3/uL 2.0-7.7 [facility] Neutrophils/100 WBC (Bld) 49.4 % 47-70 [facility] Potassium [Moles/Vol] 3.9 mmol/L 3.5-5.[address] [facility] Protein [Mass/Vol] 7.3 g/dL 6.4-8.2 [facility] Sodium [Moles/Vol] 139 mmol/L 136-145 [facility] WBC (Bld) [#/Vol] 8.1 10*3/uL 4.4-11.0 [facility] Blood erythrocytes count (nu mber/volume)Ordered By: Juana Kaiser on 06-11-2023 RBC (Bld) [#/Vol] 4.63 10*6/uL 4.2-5.4 [facility] Blood hemoglobin measurement (mass/volume)Ordered By: Juana Kaiser on 06-11-2023 Hemoglobin (Bld) [Mass/Vol] 14.1 g/dL 12.0-15.0 [facility] Blood lymphocytes/100 leukoc ytesOrdered By: Juana Kaiser on 06-11-2023 Lymphocytes/100 WBC (Bld) 33.3 % 19-41 [facility] Blood monocytes/100 leukocyt esOrdered By: Juana Kaiser on 06-11-2023 Monocytes/100 WBC (Bld) 5.6 % 0-10 [facility] Blood platelet mean volumeOr dered By: Juana Kaiser on 06-11-2023 Platelet mean volume (Bld) [Entitic vol] 10.6 fL 6.2-12.0 [facility] Determination of erythrocyte mean corpuscular volume (MCV)Ordered By: Juana Kaiser on 06-11-2023 MCV (RBC) [Entitic vol] 94.4 fL 81-99 [facility] Hematocrit Auto (Bld) [Volum e fraction]Ordered By: Juana Kaiser on 06-11-2023 Hematocrit (Bld) [Volume fraction] 43.7 % 37-47 [facility] Laboratory - Chemistry and C hemistry - challengeOrdered By: [facility] [place] Awilda on 06-11-2023 ALP [Catalytic activity/Vol] 110 U/L 45-117 [facility] ALT [Catalytic activity/Vol] 30 U/L 13-56 [facility] CO2 [Moles/Vol] 25.0 mmol/L 21.0-32.0 [facility] Globulin (S) [Mass/Vol] 3.9 g/dL 2.2-4.2 [facility] Urea nitrogen/Creatinine [Mass ratio] 15.3 mg/mg 10-20 [facility] Laboratory - Hematology and Cell countsOrdered By: Juana Kaiser on 06-11-2023 Erythrocyte distribution width (RBC) [Entitic vol] 46.8 fL 35.1-43.9 [facility] Erythrocyte distribution width (RBC) [Ratio] 13.7 % 11.6-14.6 [facility] Immature granulocytes/100 WBC (Bld) 0.200 % 0.0-0.9 [facility] Comment on above: IG% - Immature Granu locytes (promyelocytes, myelocytes and metamyelocytes) > 1% indicates that a LEFT SHIFT is Present. MCH (RBC) [Entitic mass] 30.5 pg 27.0-32.0 [facility] Nucleated RBC/100 WBC (Bld) [Ratio] 0 % 0-5 [facility] MCHC Auto (RBC) [Mass/Vol]Or dered By: Juana Kaiser on 06-11-2023 MCHC (RBC) [Mass/Vol] 32.3 g/dL 32-[address] [facility] No Panel InformationOrdered By: Juana Kaiser on 06-11-2023 Estimated GFR (MDRD) Amer 75 mL/min >60 [facility] Comment on above: GFR Calc Estimated GFR (MDRD) Non-Af Amer 62 mL/min >60 [facility] Comment on above: Non- GFR Calc Platelets bldOrdered By: Alida Kaiser on 06-11-2023 Platelets (Bld) [#/Vol] 331 10*3/uL 150-450 [facility] Serum or plasma albumin marleni urement (mass/volume)Ordered By: Juana Kaiser on 06-11-2023 Albumin [Mass/Vol] 3.4 g/dL 3.2-5.0 [facility] Serum or plasma albumin/glob ulin mass ratioOrdered By: Juana Kaisre on 06-11-2023 Albumin/Globulin [Mass ratio] 0.9 {ratio} 0.9-2.4 [facility] Serum or plasma calcium marleni urement (mass/volume)Ordered By: Juana Kaiser on 06-11-2023 Calcium [Mass/Vol] 8.9 mg/dL 8.5-10.1 [facility] Serum or plasma creatinine m easurement (mass/volume)Ordered By: Juana Kaiser on 06-11-2023 Creatinine [Mass/Vol] 0.98 mg/dL 0.55-1.[address] [facility] Comment on above: The validity of the calculated GFR & GFRAA in patients over 70 years has not been determined. Clinical correlation is essential. Serum or plasma urea nitroge n measurement (mass/volume)Ordered By: Juana Kaiser on 06-11-2023 Urea nitrogen [Mass/Vol] 15 mg/dL 7-18 [facility] Thin prep Papanicolaou smear with manual screeningOrdered By: Juana Kaiser on 06-11-2023 Thin prep Papanicolaou smear with manual screening 18 U/L 15-37 [facility] Thin prep Papanicolaou smear with manual screening 5 5-15 [facility] Absolute lymphocyte countOrd ered By: Juana Kaiser on 03-20-2023 Lymphocytes Auto (Unsp spec) [#/Vol] 2.45 10*3/uL 0.83-4.51 [facility] Basophil percentageOrdered B y: Juana Kaiser on 03-20-2023 Basophils/100 WBC (Bld) 0.7 % 0-1 [facility] Bilirubin [Mass/Vol] 0.60 mg/dL 0.20-1.00 [facility] Comment on above: For patients on eltr ombopag therapy, use of Dimension [place] TBIL is not recommended. Chloride [Moles/Vol] 110 mmol/L 98-107 [facility] Eosinophils/100 WBC (Bld) 7.1 % 0-5 [facility] Glucose [Mass/Vol] 94 mg/dL 74-106 [facility] Neutrophils (Bld) [#/Vol] 6.4 10*3/uL 2.0-7.7 [facility] Neutrophils/100 WBC (Bld) 62.9 % 47-70 [facility] Potassium [Moles/Vol] 3.9 mmol/L 3.5-5.[address] [facility] Protein [Mass/Vol] 7.5 g/dL 6.4-8.2 [facility] Sodium [Moles/Vol] 139 mmol/L 136-145 [facility] WBC (Bld) [#/Vol] 10.2 10*3/uL 4.4-11.0 [facility] Blood erythrocytes count (nu mber/volume)Ordered By: Juana Kaiser on 03-20-2023 RBC (Bld) [#/Vol] 4.36 10*6/uL 4.2-5.4 [facility] Blood hemoglobin measurement (mass/volume)Ordered By: Juana Kaiser on 03-20-2023 Hemoglobin (Bld) [Mass/Vol] 13.7 g/dL 12.0-15.0 [facility] Blood lymphocytes/100 leukoc ytesOrdered By: Juana Kaiser on 03-20-2023 Lymphocytes/100 WBC (Bld) 24.0 % 19-41 [facility] Blood monocytes/100 leukocyt esOrdered By: Juana Kaiser on 03-20-2023 Monocytes/100 WBC (Bld) 5.0 % 0-10 [facility] Blood platelet mean volumeOr dered By: Juana Kaiser on 03-20-2023 Platelet mean volume (Bld) [Entitic vol] 11.5 fL 6.2-12.0 [facility] Determination of erythrocyte mean corpuscular volume (MCV)Ordered By: Juana Kaiser on 03-20-2023 MCV (RBC) [Entitic vol] 96.6 fL 81-99 [facility] [facility] Hematocrit Auto (Bld) [Volum e fraction]Ordered By: Juana Awilda on 03-20-2023 Hematocrit (Bld) [Volume fraction] 42.1 % 37-47 [facility] Laboratory - Chemistry and C hemistry - challengeOrdered By: [facility] [place] Awilda on 03-20-2023 ALP [Catalytic activity/Vol] 113 U/L 45-117 [facility] ALT [Catalytic activity/Vol] 26 U/L 13-56 [facility] CO2 [Moles/Vol] 22.0 mmol/L 21.0-32.0 [facility] Globulin (S) [Mass/Vol] 4.0 g/dL 2.2-4.2 [facility] Urea nitrogen/Creatinine [Mass ratio] 18.2 mg/mg 10-20 [facility] Laboratory - Hematology and Cell countsOrdered By: [facility] [place] Awilda on 03-20-2023 Erythrocyte distribution width (RBC) [Entitic vol] 49.1 fL 35.1-43.9 [facility] Erythrocyte distribution width (RBC) [Ratio] 13.9 % 11.6-14.6 [facility] Immature granulocytes/100 WBC (Bld) 0.300 % 0.0-0.9 [facility] Comment on above: IG% - Immature Granu locytes (promyelocytes, myelocytes and metamyelocytes) > 1% indicates that a LEFT SHIFT is Present. MCH (RBC) [Entitic mass] 31.4 pg 27.0-32.0 [facility] Nucleated RBC/100 WBC (Bld) [Ratio] 0 % 0-5 [facility] MCHC Auto (RBC) [Mass/Vol]Or dered By: Juana Kaiser on 03-20-2023 MCHC (RBC) [Mass/Vol] 32.5 g/dL 32-[address] [facility] No Panel InformationOrdered By: Juana Kaiser on 03-20-2023 Estimated GFR (MDRD) Amer 74 mL/min >60 [facility] Comment on above: GFR Calc Estimated GFR (MDRD) Non-Af Amer 61 mL/min >60 [facility] Comment on above: Non- GFR Calc Platelets bldOrdered By: Alida Kaiser on 03-20-2023 Platelets (Bld) [#/Vol] 354 10*3/uL 150-450 [facility] Serum or plasma albumin marleni urement (mass/volume)Ordered By: Juana Kaiser on 03-20-2023 Albumin [Mass/Vol] 3.5 g/dL 3.2-5.0 [facility] Serum or plasma albumin/glob ulin mass ratioOrdered By: Juana Kaiser on 03-20-2023 Albumin/Globulin [Mass ratio] 0.9 {ratio} 0.9-2.4 [facility] Serum or plasma calcium marleni urement (mass/volume)Ordered By: Juana Kaiser on 03-20-2023 Calcium [Mass/Vol] 9.2 mg/dL 8.5-10.1 [facility] Serum or plasma creatinine m easurement (mass/volume)Ordered By: Juana Kaiser on 03-20-2023 Creatinine [Mass/Vol] 0.99 mg/dL 0.55-1.[address] [facility] Comment on above: The validity of the calculated GFR & GFRAA in patients over 70 years has not been determined. Clinical correlation is essential. Serum or plasma urea nitroge n measurement (mass/volume)Ordered By: Juana Kaiser on 03-20-2023 Urea nitrogen [Mass/Vol] 18 mg/dL 7-18 [facility] Thin prep Papanicolaou smear with manual screeningOrdered By: Juana Kaiser on 03-20-2023 Thin prep Papanicolaou smear with manual screening 21 U/L 15-37 [facility] Thin prep Papanicolaou smear with manual screening 7 5-15 [facility] MATHEW SCREENING W Hari 02-15 [facility] Absolute lymphocyte countOrd ered By: Dr. Kaiser on 12-27-2022 Lymphocytes Auto (Unsp spec) [#/Vol] 2.37 10*3/uL 0.83-4.51 [facility] Basophil percentageOrdered B y: Dr. Kaiser on 12-27-2022 Basophils/100 WBC (Bld) 0.7 % 0-1 [facility] Bilirubin [Mass/Vol] 0.70 mg/dL 0.20-1.00 [facility] Comment on above: For patients on eltr ombopag therapy, use of Dimension [place] TBIL is not recommended. Chloride [Moles/Vol] 109 mmol/L 98-107 [facility] Eosinophils/100 WBC (Bld) 8.1 % 0-5 [facility] Glucose [Mass/Vol] 103 mg/dL 74-106 [facility] Comment on above: Fasting Glucose resu lt from 100 to 125 mg/dL suggests IMPAIRED HOMEOSTASIS per A.D.A. criteria. Neutrophils (Bld) [#/Vol] 3.3 10*3/uL 2.0-7.7 [facility] Neutrophils/100 WBC (Bld) 49.8 % 47-70 [facility] Potassium [Moles/Vol] 3.9 mmol/L 3.5-5.[address] [facility] Protein [Mass/Vol] 7.2 g/dL 6.4-8.2 [facility] Sodium [Moles/Vol] 143 mmol/L 136-145 [facility] WBC (Bld) [#/Vol] 6.7 10*3/uL 4.4-11.0 [facility] Blood erythrocytes count (nu mber/volume)Ordered By: Dr. Kaiser on 12-27-2022 RBC (Bld) [#/Vol] 4.45 10*6/uL 4.2-5.4 [facility] Blood hemoglobin measurement (mass/volume)Ordered By: Dr. Kaiser on 12-27-2022 Hemoglobin (Bld) [Mass/Vol] 13.9 g/dL 12.0-15.0 [facility] Blood lymphocytes/100 leukoc ytesOrdered By: Dr. Kaiser on 12-27-2022 Lymphocytes/100 WBC (Bld) 35.4 % 19-41 [facility] Blood monocytes/100 leukocyt esOrdered By: Dr. Kaiser on 12-27-2022 Monocytes/100 WBC (Bld) 5.7 % 0-10 [facility] Blood platelet mean volumeOr dered By: Dr. Kaiser on 12-27-2022 Platelet mean volume (Bld) [Entitic vol] 11.2 fL 6.2-12.0 [facility] Determination of erythrocyte mean corpuscular volume (MCV)Ordered By: Dr. Kaiser on 12-27-2022 MCV (RBC) [Entitic vol] 97.5 fL 81-99 [facility] Hematocrit Auto (Bld) [Volum e fraction]Ordered By: Dr. Kaiser on 12-27-2022 Hematocrit (Bld) [Volume fraction] 43.4 % 37-47 [facility] Laboratory - Chemistry and C hemistry - challengeOrdered By: Dr. Kaiser on 12-27-2022 ALP [Catalytic activity/Vol] 99 U/L 45-117 [facility] ALT [Catalytic activity/Vol] 33 U/L 13-56 [facility] CO2 [Moles/Vol] 29.0 mmol/L 21.0-32.0 [facility] Globulin (S) [Mass/Vol] 3.6 g/dL 2.2-4.2 [facility] Urea nitrogen/Creatinine [Mass ratio] 13.4 mg/mg 10-20 [facility] Laboratory - Hematology and Cell countsOrdered By: Dr. Kaiser on 12-27-2022 Erythrocyte distribution width (RBC) [Entitic vol] 49.0 fL 35.1-43.9 [facility] Erythrocyte distribution width (RBC) [Ratio] 13.7 % 11.6-14.6 [facility] Immature granulocytes/100 WBC (Bld) 0.300 % 0.0-0.9 [facility] Comment on above: IG% - Immature Granu locytes (promyelocytes, myelocytes and metamyelocytes) > 1% indicates that a LEFT SHIFT is Present. MCH (RBC) [Entitic mass] 31.2 pg 27.0-32.0 [facility] Nucleated RBC/100 WBC (Bld) [Ratio] 0 % 0-5 [facility] MCHC Auto (RBC) [Mass/Vol]Or dered By: Dr. Kaiser on 12-27-2022 MCHC (RBC) [Mass/Vol] 32.0 g/dL 32-[address] [facility] No Panel InformationOrdered By: Dr. Kaiser on 12-27-2022 Estimated GFR (MDRD) Amer 76 mL/min >60 [facility] Comment on above: GFR Calc Estimated GFR (MDRD) Non-Af Amer 63 mL/min >60 [facility] Comment on above: Non- GFR Calc Platelets bldOrdered By: Dr. Kaiser on 12-27-2022 Platelets (Bld) [#/Vol] 368 10*3/uL 150-450 [facility] Serum or plasma albumin marleni urement (mass/volume)Ordered By: Dr. Kaiser on 12-27-2022 Albumin [Mass/Vol] 3.6 g/dL 3.2-5.0 [facility] Serum or plasma albumin/glob ulin mass ratioOrdered By: Dr. Kaiser on 12-27-2022 Albumin/Globulin [Mass ratio] 1.0 {ratio} 0.9-2.4 [facility] Serum or plasma calcium marleni urement (mass/volume)Ordered By: Dr. Kaiser on 12-27-2022 Calcium [Mass/Vol] 9.2 mg/dL 8.5-10.1 [facility] Serum or plasma creatinine m easurement (mass/volume)Ordered By: Dr. Kaiser on 12-27-2022 Creatinine [Mass/Vol] 0.97 mg/dL 0.55-1.[address] [facility] Comment on above: The validity of the calculated GFR & GFRAA in patients over 70 years has not been determined. Clinical correlation is essential. Serum or plasma urea nitroge n measurement (mass/volume)Ordered By: Dr. Kaiser on 12-27-2022 Urea nitrogen [Mass/Vol] 13 mg/dL 7-18 [facility] Thin prep Papanicolaou smear with manual screeningOrdered By: Dr. Kaiser on 12-27-2022 Thin prep Papanicolaou smear with manual screening 24 U/L 15-37 [facility] Thin prep Papanicolaou smear with manual screening 5 5-15 [facility] Absolute lymphocyte counton 07-03-2022 Lymphocytes Auto (Unsp spec) [#/Vol] 2.40 10*3/uL 0.83-4.51 [facility] Work Phone: Basophil percentageon 2021 Basophils/100 WBC (Bld) 1.0 % 0-1 [facility] Work Phone: Bilirubin [Mass/Vol] 0.40 mg/dL 0.20-1.00 [facility] Work Phone: Comment on above: For patients on eltr ombopag therapy, use of Dimension [place] TBIL is not recommended. Chloride [Moles/Vol] 107 mmol/L 98-107 [facility] Work Phone: Eosinophils/100 WBC (Bld) 7.7 % 0-5 [facility] Work Phone: Glucose [Mass/Vol] 83 mg/dL 74-106 [facility] Work Phone: Neutrophils (Bld) [#/Vol] 3.2 10*3/uL 2.0-7.7 [facility] Work Phone: Neutrophils/100 WBC (Bld) 47.0 % 47-70 [facility] Work Phone: Potassium [Moles/Vol] 3.7 mmol/L 3.5-5.[address] [facility] Work Phone: Protein [Mass/Vol] 7.8 g/dL 6.4-8.2 [facility] Work Phone: Sodium [Moles/Vol] 141 mmol/L 136-145 [facility] Work Phone: WBC (Bld) [#/Vol] 6.8 10*3/uL 4.4-11.0 [facility] Work Phone: Blood erythrocytes count (nu mber/volume)on 07-03-2022 RBC (Bld) [#/Vol] 4.50 10*6/uL 4.2-5.4 [facility]: Blood hemoglobin measurement (mass/volume)on 07-03-2022 Hemoglobin (Bld) [Mass/Vol] 13.8 g/dL 12.0-15.0 [facility] Work Phone: Blood lymphocytes/100 leukoc yteson 07-03-2022 Lymphocytes/100 WBC (Bld) 35.5 % 19-41 [facility] Work Phone: Blood monocytes/100 leukocyt eson 07-03-2022 Monocytes/100 WBC (Bld) 8.4 % 0-10 [facility] Work Phone: Blood platelet mean volumeon 07-03-2022 Platelet mean volume (Bld) [Entitic vol] 11.2 fL 6.2-12.0 [facility] Work Phone: Determination of erythrocyte mean corpuscular volume (MCV)on 07-03-2022 MCV (RBC) [Entitic vol] 95.1 fL 81-99 [facility] Work Phone: [phone] Hematocrit Auto (Bld) [Volum e fraction]on 07-03-2022 Hematocrit (Bld) [Volume fraction] 42.8 % 37-47 [facility] Work Phone: Laboratory - Chemistry and C hemistry - challengeon 07-03-2022 ALP [Catalytic activity/Vol] 115 U/L 45-117 [facility] Work Phone: ALT [Catalytic activity/Vol] 27 U/L 13-56 [facility] Work Phone: [phone] CO2 [Moles/Vol] 29.0 mmol/L 21.0-32.0 [facility] Work Phone: [phone] Globulin (S) [Mass/Vol] 4.2 g/dL 2.2-4.2 [facility] Work Phone: [phone] Urea nitrogen/Creatinine [Mass ratio] 13.6 mg/mg 10-20 [facility] Work Phone: [phone] Laboratory - Hematology and Cell countson 07-03-2022 Erythrocyte distribution width (RBC) [Entitic vol] 47.7 fL 35.1-43.9 [facility] Work Phone: [phone] Erythrocyte distribution width (RBC) [Ratio] 13.8 % 11.6-14.6 [facility] Work Phone: [phone] Immature granulocytes/100 WBC (Bld) 0.400 % 0.0-0.9 [facility] Work Phone: [phone] Comment on above: IG% - Immature Granu locytes (promyelocytes, myelocytes and metamyelocytes) > 1% indicates that a LEFT SHIFT is Present. MCH (RBC) [Entitic mass] 30.7 pg 27.0-32.0 [facility] Work Phone: [phone] Nucleated RBC/100 WBC (Bld) [Ratio] 0 % 0-5 [facility] Work Phone: [phone] MCHC Auto (RBC) [Mass/Vol]on 07-03-2022 MCHC (RBC) [Mass/Vol] 32.2 g/dL 32-36 [facility] Work Phone: [phone] Panel Informationon 07-03 Estimated GFR (MDRD) Amer 71 mL/min >60 [facility] Work Phone: [phone] Comment on above: GFR Calc Estimated GFR (MDRD) Non-Af Amer 59 mL/min >60 [facility] Work Phone: [phone] Comment on above: Non- GFR Calc Platelets bldon 07-03-2022 Platelets (Bld) [#/Vol] 335 10*3/uL 150-450 [facility] Work Phone: [phone] Serum or plasma albumin marleni urement (mass/volume)on 07-03-2022 Albumin [Mass/Vol] 3.6 g/dL 3.2-5.0 [facility] Work Phone: [phone] Serum or plasma albumin/glob ulin mass ratioon 07-03-2022 Albumin/Globulin [Mass ratio] 0.9 {ratio} 0.9-2.4 [facility] Work Phone: [phone] Serum or plasma calcium marleni urement (mass/volume)on 07-03-2022 Calcium [Mass/Vol] 9.5 mg/dL 8.5-10.1 [facility] Work Phone: [phone] Serum or plasma creatinine m easurement (mass/volume)on 07-03-2022 Creatinine [Mass/Vol] 1.03 mg/dL 0.55-1.[address] [facility] Work Phone: Comment on above: The validity of the calculated GFR & GFRAA in patients over 70 years has not been determined. Clinical correlation is essential. Serum or plasma urea nitroge n measurement (mass/volume)on 07-03-2022 Urea nitrogen [Mass/Vol] 14 mg/dL 7-18 [facility] Work Phone: [phone] Thin prep Papanicolaou smear with manual screeningon 07-03-2022 Thin prep Papanicolaou smear with manual screening 16 U/L 15-37 [facility] Work Phone: [phone] Thin prep Papanicolaou smear with manual screening 5 5-15 [facility] Work Phone: [phone] Absolute lymphocyte counton 04-03-2022 Lymphocytes Auto (Unsp spec) [#/Vol] 2.32 10*3/uL 0.83-4.51 [facility] Work Phone: [phone] Basophil percentageon 2021 Basophils/100 WBC (Bld) 0.9 % 0-1 [facility] Work Phone: [phone] Bilirubin [Mass/Vol] 0.30 mg/dL 0.20-1.00 [facility] Work Phone: Comment on above: For patients on eltr ombopag therapy, use of Dimension [place] TBIL is not recommended. Chloride [Moles/Vol] 107 mmol/L 98-107 [facility] Work Phone: Eosinophils/100 WBC (Bld) 7.4 % 0-5 [facility] Work Phone: Glucose [Mass/Vol] 106 mg/dL 74-106 [facility] Work Phone: Comment on above: Fasting Glucose resu lt from 100 to 125 mg/dL suggests IMPAIRED HOMEOSTASIS per A.D.A. criteria. Neutrophils (Bld) [#/Vol] 4.8 10*3/uL 2.0-7.7 [facility] Work Phone: Neutrophils/100 WBC (Bld) 57.8 % 47-70 [facility] Work Phone: Potassium [Moles/Vol] 4.1 mmol/L 3.5-5.[address] [facility] Work Phone: Protein [Mass/Vol] 7.3 g/dL 6.4-8.2 [facility] Work Phone: Sodium [Moles/Vol] 139 mmol/L 136-145 [facility] Work Phone: WBC (Bld) [#/Vol] 8.2 10*3/uL 4.4-11.0 [facility] Work Phone: Blood erythrocytes count (nu mber/volume)on 04-03-2022 RBC (Bld) [#/Vol] 4.18 10*6/uL 4.2-5.4 [facility] Work Phone: Blood hemoglobin measurement (mass/volume)on 04-03-2022 Hemoglobin (Bld) [Mass/Vol] 13.1 g/dL 12.0-15.0 [facility] Work Phone: Blood lymphocytes/100 leukoc yteson 04-03-2022 Lymphocytes/100 WBC (Bld) 28.2 % 19-41 [facility] Work Phone: [phone] Blood monocytes/100 leukocyt eson 04-03-2022 Monocytes/100 WBC (Bld) 5.5 % 0-10 [facility] Work Phone: [phone] Blood platelet mean volumeon 04-03-2022 Platelet mean volume (Bld) [Entitic vol] 11.7 fL 6.2-12.0 [facility] Work Phone: [phone] Determination of erythrocyte mean corpuscular volume (MCV)on 04-03-2022 MCV (RBC) [Entitic vol] 94.7 fL 81-99 [facility] Work Phone: [phone] Hematocrit Auto (Bld) [Volum e fraction]on 04-03-2022 Hematocrit (Bld) [Volume fraction] 39.6 % 37-47 [facility] Work Phone: [phone] Laboratory - Chemistry and C hemistry - challengeon 04-03-2022 ALP [Catalytic activity/Vol] 101 U/L 45-117 [facility] Work Phone: [phone] ALT [Catalytic activity/Vol] 31 U/L 13-56 [facility] Work Phone: [phone] CO2 [Moles/Vol] 26.0 mmol/L 21.0-32.0 [facility] Work Phone: [phone] Globulin (S) [Mass/Vol] 3.9 g/dL 2.2-4.2 [facility] Work Phone: [phone] Urea nitrogen/Creatinine [Mass ratio] 16.7 mg/mg 10-20 [facility] Work Phone: [phone] Laboratory - Hematology and Cell countson 04-03-2022 Erythrocyte distribution width (RBC) [Entitic vol] 47.6 fL 35.1-43.9 [facility] Work Phone: [phone] Erythrocyte distribution width (RBC) [Ratio] 13.8 % 11.6-14.6 [facility] Work Phone: [phone] Immature granulocytes/100 WBC (Bld) 0.200 % 0.0-0.9 [facility] Work Phone: Comment on above: IG% - Immature Granu locytes (promyelocytes, myelocytes and metamyelocytes) > 1% indicates that a LEFT SHIFT is Present. MCH (RBC) [Entitic mass] 31.3 pg 27.0-32.0 [facility] Work Phone: [phone] Nucleated RBC/100 WBC (Bld) [Ratio] 0 % 0-5 [facility] Work Phone: [phone] MCHC Auto (RBC) [Mass/Vol]on 04-03-2022 MCHC (RBC) [Mass/Vol] 33.1 g/dL 32-[address] [facility] Work Phone: [phone] Panel Informationon 04-03 Estimated GFR (MDRD) Amer 77 mL/min >60 [facility] Work Phone: [phone] Comment on above: GFR Calc Estimated GFR (MDRD) Non-Af Amer 64 mL/min >60 [facility] Work Phone: [phone] Comment on above: Non- GFR Calc Platelets bldon 04-03-2022 Platelets (Bld) [#/Vol] 341 10*3/uL 150-450 [facility] Work Phone: [phone] Serum or plasma albumin marleni urement (mass/volume)on 04-03-2022 Albumin [Mass/Vol] 3.4 g/dL 3.2-5.0 [facility] Work Phone: [phone] Serum or plasma albumin/glob ulin mass ratioon 04-03-2022 Albumin/Globulin [Mass ratio] 0.9 {ratio} 0.9-2.4 [facility] Work Phone: [phone] Serum or plasma calcium marleni urement (mass/volume)on 04-03-2022 Calcium [Mass/Vol] 9.4 mg/dL 8.5-10.1 [facility] Work Phone: [phone] Serum or plasma creatinine m easurement (mass/volume)on 04-03-2022 Creatinine [Mass/Vol] 0.96 mg/dL 0.55-1.[address] [facility] Work Phone: Comment on above: The validity of the calculated GFR & GFRAA in patients over 70 years has not been determined. Clinical correlation is essential. Serum or plasma urea nitroge n measurement (mass/volume)on 04-03-2022 Urea nitrogen [Mass/Vol] 16 mg/dL 7-18 [facility] Work Phone: Thin prep Papanicolaou smear with manual screeningon 04-03-2022 Thin prep Papanicolaou smear with manual screening 20 U/L 15-37 [facility] Work Phone: Thin prep Papanicolaou smear with manual screening 6 5-15 [facility] Work Phone: Laboratory - Microbiology an d Antimicrobial susceptibilityon 03-11-2022 SARS-CoV-2 (COVID-19) RNA JAHAIRA+probe Ql (Unsp spec) Not detected [facility] Work Phone: No Panel Informationon 03-11 Influenza Types A,B Rapid (Clinic) Not detected [facility] Work Phone: Absolute lymphocyte counton 12-20-2021 Lymphocytes Auto (Unsp spec) [#/Vol] 2.14 10*3/uL 0.83-4.51 [facility] Work Phone: Basophil percentageon 2021 Basophils/100 WBC (Bld) 0.7 % 0-1 [facility] Work Phone: [phone] Bilirubin [Mass/Vol] 0.60 mg/dL 0.20-1.00 [facility] Work Phone: Comment on above: For patients on eltr ombopag therapy, use of Dimension [place] TBIL is not recommended. Chloride [Moles/Vol] 110 mmol/L 98-107 [facility] Work Phone: Eosinophils/100 WBC (Bld) 7.3 % 0-5 [facility] Work Phone: [phone] Glucose [Mass/Vol] 117 mg/dL 74-106 [facility] Work Phone: [phone] Comment on above: Fasting Glucose resu lt from 100 to 125 mg/dL suggests IMPAIRED HOMEOSTASIS per A.D.A. criteria. Neutrophils (Bld) [#/Vol] 5.0 10*3/uL 2.0-7.7 [facility] Work Phone: Neutrophils/100 WBC (Bld) 61.1 % 47-70 [facility] Work Phone: [phone] Potassium [Moles/Vol] 4.1 mmol/L 3.5-5.[address] [facility] Work Phone: [phone] Comment on above: Slight Hemolysis, Re sult may be falsely increased. Protein [Mass/Vol] 7.4 g/dL 6.4-8.2 [facility] Work Phone: [phone] Sodium [Moles/Vol] 141 mmol/L 136-145 [facility] Work Phone: [phone] WBC (Bld) [#/Vol] 8.1 10*3/uL 4.4-11.0 [facility] Work Phone: [phone] Blood erythrocytes count (nu mber/volume)on 12-20-2021 RBC (Bld) [#/Vol] 4.45 10*6/uL 4.2-5.4 [facility] Work Phone: Blood hemoglobin measurement (mass/volume)on 12-20-2021 Hemoglobin (Bld) [Mass/Vol] 14.0 g/dL 12.0-15.0 [facility] Work Phone: [phone] Blood lymphocytes/100 leukoc yteson 12-20-2021 Lymphocytes/100 WBC (Bld) 26.4 % 19-41 [facility] Work Phone: [phone] Blood monocytes/100 leukocyt eson 12-20-2021 Monocytes/100 WBC (Bld) 4.4 % 0-10 [facility] Work Phone: Blood platelet mean volumeon 12-20-2021 Platelet mean volume (Bld) [Entitic vol] 11.3 fL 6.2-12.0 [facility] Work Phone: Determination of erythrocyte mean corpuscular volume (MCV)on 12-20-2021 MCV (RBC) [Entitic vol] 95.3 fL 81-99 [facility] Work Phone: [phone] Hematocrit Auto (Bld) [Volum e fraction]on 12-20-2021 Hematocrit (Bld) [Volume fraction] 42.4 % 37-47 [facility] Work Phone: [phone] Laboratory - Chemistry and C hemistry - challengeon 12-20-2021 ALP [Catalytic activity/Vol] 104 U/L 45-117 [facility] Work Phone: [phone] ALT [Catalytic activity/Vol] 31 U/L 13-56 [facility] Work Phone: [phone] CO2 [Moles/Vol] 26.0 mmol/L 21.0-32.0 [facility] Work Phone: [phone] Globulin (S) [Mass/Vol] 3.8 g/dL 2.2-4.2 [facility] Work Phone: [phone] Urea nitrogen/Creatinine [Mass ratio] 13.8 mg/mg 10-20 [facility] Work Phone: [phone] Laboratory - Hematology and Cell countson 12-20-2021 Erythrocyte distribution width (RBC) [Entitic vol] 46.7 fL 35.1-43.9 [facility] Work Phone: [phone] Erythrocyte distribution width (RBC) [Ratio] 13.5 % 11.6-14.6 [facility] Work Phone: [phone] Immature granulocytes/100 WBC (Bld) 0.100 % 0.0-0.9 [facility] Work Phone: [phone] Comment on above: IG% - Immature Granu locytes (promyelocytes, myelocytes and metamyelocytes) > 1% indicates that a LEFT SHIFT is Present. MCH (RBC) [Entitic mass] 31.5 pg 27.0-32.0 [facility] Work Phone: Nucleated RBC/100 WBC (Bld) [Ratio] 0 % 0-5 [facility] Work Phone: [phone] MCHC Auto (RBC) [Mass/Vol]on 12-20-2021 MCHC (RBC) [Mass/Vol] 33.0 g/dL 32-[address] [facility] Work Phone: No Panel Informationon 12-20 Estimated GFR (MDRD) Amer 62 mL/min >60 [facility] Work Phone: [phone] Comment on above: GFR Calc Estimated GFR (MDRD) Non-Af Amer 51 mL/min >60 [facility] Work Phone: [phone] Comment on above: Non- GFR Calc Platelets bldon 12-20-2021 Platelets (Bld) [#/Vol] 328 10*3/uL 150-450 [facility] Work Phone: [phone] Serum or plasma albumin marleni urement (mass/volume)on 12-20-2021 Albumin [Mass/Vol] 3.6 g/dL 3.2-5.0 [facility] Work Phone: [phone] Serum or plasma albumin/glob ulin mass ratioon 12-20-2021 Albumin/Globulin [Mass ratio] 0.9 {ratio} 0.9-2.4 [facility] Work Phone: [phone] Serum or plasma calcium marleni urement (mass/volume)on 12-20-2021 Calcium [Mass/Vol] 9.7 mg/dL 8.5-10.1 [facility] Work Phone: [phone] Serum or plasma creatinine m easurement (mass/volume)on 12-20-2021 Creatinine [Mass/Vol] 1.16 mg/dL 0.55-1.[address] [facility] Work Phone: Comment on above: The validity of the calculated GFR & GFRAA in patients over 70 years has not been determined. Clinical correlation is essential. Serum or plasma urea nitroge n measurement (mass/volume)on 12-20-2021 Urea nitrogen [Mass/Vol] 16 mg/dL 7-18 [facility] Work Phone: Thin prep Papanicolaou smear with manual screeningon 12-20-2021 Thin prep Papanicolaou smear with manual screening 23 U/L 15-37 [facility] Work Phone: Comment on above: Slight Hemolysis, Re sult may be falsely increased. Thin prep Papanicolaou smear with manual screening 5 5-15 [facility] Work Phone: Vital Signs Date Time Vital Sign Value Performing Clinician Facility 03-11-2025 10:34-0400 Body height 176.5 cm Sevtlana Qureshi APRN.FORMAL WAITER/WAITRESS Work Phone: [facility] 03-11-2025 10:34-0400 Body mass index (BMI) [Ratio] 26.05 kg/m2 Svetlana Qureshi APRN.FORMAL WAITER/WAITRESS Work Phone: [facility] 03-11-2025 10:34-0400 Body weight 81.19 kg Svetlana Qureshi APRN.FORMAL WAITER/WAITRESS Work Phone: [facility] 03-11-2025 10:34-0400 Diastolic blood pressure 84 mm[Hg] Svetlana Qureshi APRN.FORMAL WAITER/WAITRESS Work Phone: [facility] 03-11-2025 10:34-0400 Systolic blood pressure 124 mm[Hg] Svetlana Qureshi APRN.FORMAL WAITER/WAITRESS Work Phone: [facility] 01-30-2024 14:22-0400 Body temperature 100.4 [degF] Svetlana Qureshi APRN.FORMAL WAITER/WAITRESS Work Phone: [facility] 01-30-2024 14:22-0400 Body weight 83.01 kg Svetlana Qureshi APRN.FORMAL WAITER/WAITRESS Work Phone: [facility] 07-16-2023 06:56-0400 Diastolic blood pressure 67 mm[Hg] [facility] 07-16-2023 06:56-0400 Heart rate 74 /min [facility] 07-16-2023 06:56-0400 Respiratory rate 18 /min [facility] 07-16-2023 06:56-0400 SaO2% (BldA) [Mass fraction] 93 % [facility] 07-16-2023 06:56-0400 Systolic blood pressure 132 mm[Hg] [facility] 07-16-2023 04:09-0400 Body height 177.8 cm [facility] 07-16-2023 04:09-0400 Body mass index (BMI) [Ratio] 27.1 kg/m2 [facility] 07-16-2023 04:09-0400 Body temperature 97.9 [degF] [facility] 07-16-2023 04:090400 Body weight 85.72 kg [facility] 07-15-2023 12:30-0400 Body temperature 98.29 [degF] Dominique Williamson APRN.FORMAL WAITER/WAITRESS Work Phone: [facility] 07-15-2023 12:30-0400 Body weight 85.82 kg Dominique Williamson APRN.FORMAL WAITER/WAITRESS Work Phone: [facility] 07-15-2023 12:30-0400 Diastolic blood pressure 82 mm[Hg] Dominique Williamson APRN.FORMAL WAITER/WAITRESS Work Phone: [facility] 07-15-2023 12:30-0400 Heart rate 85 /min Dominique Williamson APRN.FORMAL WAITER/WAITRESS Work Phone: [facility] 07-15-2023 12:30-0400 Respiratory rate 20 /min Dominique Williamson APRN.FORMAL WAITER/WAITRESS Work Phone: [facility] 07-15-2023 12:30-0400 SaO2% (BldA) [Mass fraction] 95 % Dominique Williamson APRN.FORMAL WAITER/WAITRESS Work Phone: [facility] 07-15-2023 12:30-0400 Systolic blood pressure 120 mm[Hg] Dominique Williamson APRN.FORMAL WAITER/WAITRESS Work Phone: [facility] 08-20-2022 10:55-0500 Body temperature 99.5 [degF] Alana JOSEPH-C Work Phone: [facility] 08-20-2022 10:55-0500 Body weight 83.19 kg Alana Soriano PA-C Work Phone: [facility] 08-20-2022 10:55-0500 Diastolic blood pressure 68 mm[Hg] Alana Soriano PA-C Work Phone: [facility] 08-20-2022 10:55-0500 Heart rate 90 /min Alana Bergery PA-C Work Phone: [facility] 08-20-2022 10:55-0500 Respiratory rate 20 /min Alana Bergery PA-C Work Phone: [facility] 08-20-2022 10:55-0500 SaO2% (BldA) [Mass fraction] 98 % Alana Bergery PA-C Work Phone: [facility] 08-20-2022 10:55-0500 Systolic blood pressure 120 mm[Hg] Alana Soriano PA-C Work Phone: [facility] 03-11-2022 09:01-0400 Body height 177.[address] Mickey Banuelos Work Phone: [facility] Work Phone: 03-11-2022 09:01-0400 Body mass index (BMI) [Ratio] 26.2 kg/m2 Dr. Mickey Banuelos Work Phone: [facility] Work Phone: 03-11-2022 09:01-0400 Body temperature 98 [degF] Dr. Mickey Banuelos Work Phone: [facility] Work Phone: 03-11-2022 09:01-0400 Body weight [address] Mickey Banuelos Work Phone: [facility] Work Phone: 03-11-2022 09:01-0400 Diastolic blood pressure 68 mm[Hg] Dr. Mickey Banuelos Work Phone: [facility] Work Phone: 03-11-2022 09:01-0400 Heart rate 64 /min Dr. Mickey Banuelos Work Phone: [facility] Work Phone: 03-11-2022 09:01-0400 Respiratory rate 14 /min Dr. Mickey Banuelos Work Phone: [facility] Work Phone: 03-11-2022 09:01-0400 SaO2% (BldA) [Mass fraction] 97 % Dr. Mickey Banuelos Work Phone: [facility] Work Phone: 03-11-2022 09:01-0400 Systolic blood pressure 126 mm[Hg] Dr. Mickey Banuelos Work Phone: [facility] Work Phone: Encounters Encounter Date Encounter Type Care Provider Facility Start: 06-11-2025 End: 06-11-[address] Mickey Banuelos MD Work Phone: -[facility] [place] Start: 06-11-2025 End: 06-11-[address] Mickey Banuelos MD -[facility] [place] Work Phone: Start: 06-11-2025 End: 06-11-2025 ambulatory Mickey Banuelos Facility:[facility] Start: 03-17-2025 End: 05-17-2025 Follow-up encounter Svetlana Qureshi APRN.CNP Work Phone: OB/Gynecology Start: 03-12-2025 End: 05-12-2025 Follow-up encounter Svetlana Qureshi APRN.CNP Work Phone: OB/Gynecology Start: 03-11-2025 End: 03-11-2025 Patient encounter procedure Svetlana Qureshi APRN.FORMAL WAITER/WAITRESS Work Phone: OB/Gynecology Comment on above: Encounter for gyneco logical examination (general) (routine) without abnormal findings (Primary Dx); Symptomatic menopausal or female climacteric states; Hormone replacement therapy (HRT); Encounter for screening mammogram for breast cancer; Encounter for Papanicolaou smear for cervical cancer screening; Encounter for screening for human papillomavirus (HPV) Start: 03-11-2025 End: 03-11-2025 Patient encounter status Svetlana Qureshi APRN.CNP Work Phone: [facility] Start: 03-11-2025 End: 03-11-2025 ambulatory SVETLANA QURESHI Facility:[facility] Start: 03-11-2025 Encounter for gynecological examination (general) (routine) without abnormal findings SVETLANA QURESHI [facility] Start: 03-11-2025 End: 03-11-2025 Subsequent hospital visit by physician Screen Mammo [facility] Mammogram Comment on above: Encounter for screen ing mammogram for malignant neoplasm of breast [Z12.31] Start: 02-25-2025 End: 02-25-[address] Mickey Banuelos MD Work Phone: [facility] Work Phone: Start: 02-25-2025 End: 02-25-[address] Juana Kaiser MD -Laboratory Work Phone: Start: 02-25-2025 End: 02-25-2025 ambulatory Mickey Banuelos Facility:[facility] Start: 02-20-2025 End: 02-20-2025 Refill Yarelis Williamson MD Work Phone: OB/Gynecology Comment on above: Refill Request Orders Start: 12-02-2024 End: 12-02-[address] Juana Kaiser MD -Laboratory Work Phone: Start: 12-02-2024 End: 12-02-2024 ambulatory Mickey Banuelos Facility:[facility] Start: 11-21-2024 End: 11-21-[address] Mickey Banuelos MD -Laboratory [facility] Start: 11-21-2024 End: 11-21-2024 ambulatory Mickey Banuelos Facility:[facility] Start: 08-04-2024 End: 08-04-2024 ambulatory Juana Kaiser Facility:[facility] Start: 02-05-2024 End: 02-05-2024 ambulatory [facility] Work Phone: Start: 02-05-2024 End: 02-05-2024 Patient encounter procedure [facility] Work Phone: Start: 02-01-2024 ambulatory Svetlana DOLL RN.FORMAL WAITER/WAITRESS Work Phone: OB/Gynecology Comment on above: Urine test Start: 01-30-2024 End: 01-30-2024 Patient encounter procedure Svetlana Qureshi APRN.FORMAL WAITER/WAITRESS Work Phone: OB/Gynecology Comment on above: Abdominal cramping ( Primary Dx); Fever, unspecified fever cause; Leukocytes in urine; Screen for STD (sexually transmitted disease); Vaginal discharge Start: 11-15-2023 Refill Yarelis Mauricio Work Phone: OB/Gynecology Comment on above: Refill Request Start: 11-07-2023 End: 11-07-2023 ambulatory [facility] Work Phone: Start: 11-07-2023 End: 11-07-2023 Patient encounter procedure [facility]Labor[facility] Work Phone: Start: 10-16-2023 End: 10-16-2023 ambulatory [facility] Work Phone: Start: 10-16-2023 End: 10-16-2023 Patient encounter procedure [facility] Work Phone: Start: 09-24-2023 End: 09-24-2023 ambulatory [facility] Work Phone: Start: 09-24-2023 End: 09-24-2023 Patient encounter procedure [facility] Work Phone: Start: 09-03-2023 End: 09-03-2023 ambulatory [facility] Work Phone: Start: 09-03-2023 End: 09-03-2023 Patient encounter procedure [facility]Labor[facility] Work Phone: Start: 07-16-2023 End: 07-16-2023 Emergency department patient visit [facility]Emergency Department Work Phone: Start: 07-15-2023 End: 07-15-2023 Patient encounter procedure Dominique Williamson APRN.FORMAL WAITER/WAITRESS Work Phone: [facility] Comment on above: Acute cough (Primary Dx); URI, acute Start: 06-11-2023 End: 06-11-[facility]23 [facility] Start: 03-20-2023 End: 03-20-2023 [facility] Start: 02-15-2023 Documentation procedure Mammog marli Coordinator [facility] Start: 02-15-2023 Letter encounter Mammography Coordinator [facility] Department Start: 02-15-2023 End: 02-15-2023 Subsequent hospital visit by physician Screen Mammo [facility] Mammogram Comment on above: Encounter for screen ing mammogram for malignant neoplasm of breast [Z12.31] Start: 01-19-2023 ambulatory Yarelis Mauricio Work Phone: OB/Gynecology Comment on above: Question about pap a nd vaginal dryness Refill Request Start: 12-27-2022 End: 12-27-2022 ambulatory [facility] Work Phone: Start: 12-27-2022 End: 12-27-2022 [facility] Start: 08-20-2022 End: 08-20-2022 Patient encounter procedure Alana Soriano PA-C Work Phone: [facility] Comment on above: Influenza-like illne ss (Primary Dx) Start: 07-03-2022 End: 07-03-[address] Mickey Banuelos Work Phone: [facility] Work Phone: Start: 07-03-2022 End: 07-03-[address] [facility] Start: 04-03-2022 End: 04-03-[address] [facility] Start: 03-11-2022 End: 03-11-[address] Mickey Banuelos Work Phone: [facility] Start: 12-20-2021 End: 12-20-[address] Mickey Banuelos Work Phone: [facility]Laboratory Start: 05-21-2018 Patient encounter Facil [id number] Start: 05-08-2018 Patient encounter Prudencio Gary Facility:[facility] Procedures Date Procedure Procedure Detail Performing Clinician Start: 12-02-2024 Measurement of renal function Dr. Mickey Banuelos MD Work Phone: Comment on above: GFR Calc Start: 11-21-2024 Urnls dip stick/tabl et reagent auto microscopy Dr. Mickey Banuelos MD Work Phone: Start: 11-21-[address] Mickey Banuelos MD Work Phone: Start: 01-30-2024 BACTERIAL VAGINOSIS NAAT Svetlana Qureshi APRN.FORMAL WAITER/WAITRESS Work Phone: Start: 01-30-2024 Iadna trichomonas va ginalis amplified probe tech Svetlana Qureshi APRN.FORMAL WAITER/WAITRESS Work Phone: Start: 01-30-2024 Urnls dip stick/tabl et rgnt auto w/o microscopy Svetlana Qureshi APRN.FORMAL WAITER/WAITRESS Work Phone: Start: 11-07-2023 Radiography of nasal sinuses Start: 09-24-2023 Ultrasonography of abdomen Start: 07-16-2023 SARS-CoV-2 & FLU Ant igen (Rapid) Start: 07-16-2023 Viral antigen assay Start: 07-16-2023 Plain chest X-ray Start: 02-15-2023 End: 02-15-2023 Mammography Yarelis Williamson MD Work Phone: Start: 08-18-2021 Mammography Alana Soriano PA-C Work Phone: Start: 08-14-2019 Colonoscopy Alana Soriano PA-C Work Phone: Plan of Treatment Date Care Activity Detail Author Start: 08-14-2029 Colonoscopy COLONOSCOPY [facility] Start: 08-14-2029 COLORECTAL CANCER SCREENING COLORECTAL CANCER SCREENING [facility] Start: 08-14-2029 Screening for malign ant neoplasm of colon [facility] Start: 01-31-2028 HPV TESTING HPV TESTING [facility] Start: 01-31-2028 PAP TESTING PAP TESTING [facility] Start: 01-31-2028 Screening for malign ant neoplasm of cervix [facility] Start: 08-02-2026 HPV TESTING HPV TESTING [facility] Start: 08-02-2026 PAP TESTING PAP TESTING [facility] Start: 03-12-2026 End: 03-12-2026 Patient encounter procedure Mammogram Comment on above: Mammogram Annual Start: 03-11-2026 Screening for malign ant neoplasm of breast Mammogram Screening [facility] Start: 03-11-2026 Screening for malign ant neoplasm of cervix Cervical Cancer Screening [facility] Start: 06-15-2025 Influenza vaccination [facility] Start: 03-11-2025 End: 03-11-2025 Patient encounter procedure OB/Gynecology Comment on above: Annual Dx: Encounter for sc reening mammogram for malignant neoplasm of breast [Z12.31] Start: 2025 RSV Vaccine (1 - Ris k 60-74 years 1-dose series) RSV Vaccine (1 - Risk 60-74 years 1-dose series) [facility] Start: 01-01-2025 Covid-19 Vaccine (7 - Pfizer risk season) Covid-19 Vaccine (7 - Pfizer risk season) [facility] Start: 06-15-2024 Covid-19 Vaccine ( - season) Covid-19 Vaccine ( - season) [facility] Start: 06-15-2024 Influenza vaccination Influenz a Vaccine (Season Ended) [facility] Start: 02-16-2024 Mammography [facility] Start: 02-16-2024 Screening for malign ant neoplasm of breast Mammogram Screening [facility] Start: 01-31-2024 Screening for malign ant neoplasm of cervix Cervical Cancer Screening [facility] Start: 11-07-2023 [facility] Start: 10-15-2023 Behavioral Health Screening Behavioral Health Screening [facility] Start: 10-15-2023 Depression Assessment Depression Ass essment [facility] Start: 07-16-2023 [facility] Start: 07-15-2023 End: 07-29-2023 COVID & INFLUENZA A/B & RSV NAAT, ROUTINE COVID & INFLUENZA A/B & RSV NAAT, ROUTINE Microbiology Routine URI, acute Expected: 07/15/2023, Expires: 07/29/2023 [facility] Work Phone: Comment on above: Expected: 07/15/2023 , Expires: 07/29/2023 Start: 06-15-2023 Covid-19 Vaccine ( season) Covid-19 Vaccine () [facility] Start: 06-15-2023 Influenza vaccination Influenza Vacc ine (#1) [facility] Start: 10-15-2022 DEPRESSION ASSESSMENT DEPRESSION ASS [facility] Start: 10-09-2022 Urine microalbumin profile DTaP,Tdap,Td Vaccine (2 - Td or Tdap) [facility] Start: 08-26-2022 Covid-19 Vaccine (6 - Pfizer risk series) Covid-19 Vaccine (6 - Pfizer risk series) [facility] Start: 08-20-2022 End: 09-03-2022 Influenza virus A and B RNA and SARS-CoV-2 (COVID-19) N gene panel - Respiratory specimen by JAHAIRA with probe detection COVID WITH FLUA+B, ROUTINE Microbiology Routine Influenza-like illness Expected: 08/20/2022, Expires: 09/03/2022 [facility] Work Phone: Comment on above: Expected: 08/20/2022 , Expires: 09/03/2022 Start: 08-18-2022 Mammography MAMMOGRAM [facility] Start: 10-15-2021 [facility]MENT [facility] Start: 01-08-2021 Pneumococcal vaccination [facility] Start: 01-08-2021 Pneumococcal Vaccine : 50+ (2 of 2 - PCV) Pneumococcal Vaccine: 50+ (2 of 2 - PCV) [facility] Start: 2010 COLOGUARD (FIT-DNA) COLOGUARD (FIT-D NA) [facility] Start: [address] COLONOGRAPHY [facility] Start: 2010 DIABETES SCREEN DIABETES SCREEN [facility] Start: 2010 Diabetes Screening Diabetes Screenin g [facility] Start: 2010 FECAL OCCULT BLOOD FECAL OCCULT BLOO D [facility] Start: 2010 Lipid 1996 panel - Serum or Plasma Lipid Screening [facility] Start: 2010 Lipid panel Lipid Screening [facility] Start: 2010 LIPID SCREEN LIPID SCREEN [facility] Start: 2010 Screening for malign ant neoplasm of colon [facility] Start: 2010 SIGMOIDOSCOPY SIGMOIDOSCOPY [facility] Start: 02-25-1984 Hepatitis B Vaccine (1 of 3 - 19+ 3-dose series) Hepatitis B Vaccine (1 of 3 - 19+ 3-dose series) [facility] Start: 02-25-1984 SHINGRIX VACCINE (1 of 2) SHINGRIX VACCINE (1 of 2) [facility] Start: 02-25-1984 Urine microalbumin profile [facility] Start: 1983 ANNUAL PCP TEAM FARE ENFORCEMENT OFFICER MALATHI DISEASE VISIT ANNUAL PCP TEAM CHRONIC DISEASE VISIT [facility] Start: 1983 Anxiety Screening Anxiety Screening [facility] Start: 1983 Depression Screening Depression Scre ening [facility] Start: 1971 PNEUMOCOCCAL (1 - PCV) PNEUMOCOCCAL (1 - PCV) [facility] Start: 1971 Pneumococcal vaccination Pneumococcal Vaccine (1 - PCV) [facility] Start: 1965 HEPATITIS B (1 of 3 - 3-dose series) HEPATITIS B (1 of 3 - 3-dose series) [facility] Start: 1965 Hepatitis B Vaccine (1 of 3 - 3-dose series) Hepatitis B Vaccine (1 of 3 - 3-dose series) [facility] Alternaria alternata IgE Ab [Units/volume] in Serum [facility] Salvadorean Cockroach I gE Ab [Units/volume] in Serum [facility] Salvadorean house dust mite IgE Ab [Units/volume] in Serum [facility] Aspergillus f[facility]igatu s [facility] Bacteria identified in Urine by Culture URINE CULTURE Microbiology Routine Fever, unspecified fever cause Leukocytes in urine 01/30/2024 4:39 PM EDT [facility] Work Phone: Bahia grass IgE Ab [Units/volume] in Serum [facility] Beef IgE Ab [Units/volume] in Serum [facility] Bermuda grass IgE Ab [Units/volume] in Serum [facility] Box elder [facility] Cat dander IgE Ab [Units/volume] in Serum [facility] Chlamydia trachomatis+Neisseria gonorrhoeae DNA [Presence] in Unspecified specimen by JAHAIRA with probe detection GONORRHEA/CHLAMYDIA NAAT Lab Routine Abdominal cramping Screen for STD (sexually transmitted disease) Vaginal discharge 01/30/2024 4:39 PM EDT [facility] Work Phone: Chocolate IgE Ab [Units/volume] in Serum [facility] Cladosporium herbaru m IgE Ab [Units/volume] in Serum [facility] Codfish IgE Ab [Units/volume] in Serum [facility] Common Ragweed IgE A b [Units/volume] in Serum [facility] [place] IgE Ab [Units/volume] in Serum [facility] Cow milk IgE Ab [Units/volume] in Serum [facility] End: 03-22-2026 DBT Breast - bilateral screening MATHEW SCREENING W [facility] Radiology Routine Encounter for screening mammogram for malignant neoplasm of breast 1 Occurrences starting 02/20/2025 until 03/22/2026 [facility] Work Phone: Comment on above: 1 Occurrences starti ng 02/20/2025 until 03/22/2026 End: 04-10-2026 DBT Breast - bilateral screening MATHEW SCREENING W [facility] Radiology Routine Encounter for gynecological examination (general) (routine) without abnormal findings Encounter for screening mammogram for breast cancer 1 Occurrences starting 03/11/2025 until 04/10/2026 [facility] Work Phone: Comment on above: 1 Occurrences starti ng 03/11/2025 until 04/10/2026 DBT Breast - bilater al screening MATHEW SCREENING W KRISH[facility] Radiology Routine Encounter for screening mammogram for malignant neoplasm of breast 03/11/2025 11:46 AM EDT [facility] Work Phone: Dog epithelium IgE A b [Units/volume] in Serum [facility] house dust mite IgE Ab [Units/volume] in Serum [facility] Hazelnut Pollen IgE Ab [Units/volume] in Serum [facility] Alin grass IgE Ab [Units/volume] in Serum [facility] [place] blue grass IgE Ab [Units/volume] in Serum [facility] Mountain Juniper IgE Ab [Units/volume] in Serum [facility] Mucor racemosus IgE Ab [Units/volume] in Serum [facility] Mugwort IgE Ab [Units/volume] in Serum [facility] [place] [facility] Nettle IgE Ab [Units/volume] in Serum [facility] PAP TEST PAP TEST Lab Soniya hunter Encounter for Papanicolaou smear for cervical cancer screening Encounter for screening for human papillomavirus (HPV) 03/11/2025 11:21 AM EDT [facility] Patient Education ED Pneumonia (Adult) [facility] Work Phone: Patient referral [facility] Work Phone: Peanut IgE Ab [Units/volume] in Serum [facility] Penicillium notatum IgE Ab [Units/volume] in Serum [facility] Plantain (Belarusian) [facility] Pork IgE Ab [Units/volume] in Serum [facility] Removal intrauterine device iud REMOVE INTRAUTERINE DEVICE Procedures Routine Abdominal cramping Ordered: 01/30/2024 [facility] Work Phone: Comment on above: Ordered: 01/30/2024 Rough Pigweed IgE Ab [Units/volume] in Serum [facility] ROUTINE FLU A/B + RSV ROUTINE FL U A/B + RSV Lab Routine URI, acute Ordered: 07/15/2023 [facility] Work Phone: Comment on above: Ordered: 07/15/2023 [place] IgE Ab [Units/volume] in Serum [facility] SARS-CoV-2 (COVID-19 ) RNA [Presence] in Respiratory specimen by JAHAIRA with probe detection COVID NAAT, UPPER RESPIRATORY, ROUTINE Microbiology Routine URI, acute Ordered: 07/15/2023 [facility] Work Phone: Comment on above: Ordered: 07/15/2023 Sheep [place] IgE Ab [Units/volume] in Serum [facility] Shrimp IgE Ab [Units/volume] in Serum [facility] Soybean IgE Ab [Units/volume] in Serum [facility] Stemphylium botryosu m IgE Ab [Units/volume] in Serum [facility] Sweet gum [facility] Tree pollen [facility] Tuna IgE Ab [Units/volume] in Serum [facility] Wheat IgE Ab [Units/volume] in Serum [facility] White Elm IgE Ab [Units/volume] in Serum [facility] White [place] IgE Ab [Units/volume] in Serum [facility] [place] IgE Ab [Units/volume] in Serum [facility] Whole Egg IgE Ab [Units/volume] in Serum [facility] Immunizations Immunization Date Immunization Notes Care Provider [facility] 07-04-2024 influenza virus vaccine, unspecified formulation Svetlana Qureshi APRN.FORMAL WAITER/WAITRESS Work Phone: [facility] 07-01-2022 influenza virus vaccine, unspecified formulation Dominique Williamson APRN.FORMAL WAITER/WAITRESS Work Phone: [facility] 01-18-2021 Covid (Pfizer) Dr. Mickey garcia Work Phone: [facility] 12-28-2020 Covid (Pfizer) Dr. Mickey garcia Work Phone: [facility] Payers Date Payer Category Payer Self-pay [id number] 2021 [employer] Blue [facility] BLUE ACCE PPO [id number] 2021 Unknown [place] SUMNER ACCE SS PPO [id number] 2021-Present [phone] [address] [place] [address] PPO [id number] 2021 Unknown [id number] 2012 Private Health Insurance [id number] 2001 Miscellaneous or Other PSYCH GEN MICKEY [id number] Unknown . [id number] Unknown [id number] Unknown [id number] Unknown [id number] Unknown [id number] Unknown [id number] Social History Date Type Detail Facility Tobacco smoking stat [facility] Unknown if ever smoked [facility] Work Phone: Start: 1965 Sex Assigned At Female [facility] Start: 08-20-2022 [facility] Start: 08-14-1980 End: 08-14-1988 History of tobacco use Current smoker [facility] Start: 08-14-1980 End: 08-14-1988 History of tobacco use Cigarette Smoker [facility] Start: 08-20-2022 End: 02-15-2023 Cigarettes smoked current (pack per day) - Reported 1 [facility] Start: 08-20-2022 Tobacco use and exposure Smokeless tobacco non-user [facility] Start: 08-20-2022 End: 03-11-2025 Alcohol intake Current drinker of alcohol (finding) [facility] Start: 04-12-2016 Alcohol Comment occ [facility] Start: 08-10-2022 End: 08-20-2022 Exposure to SARS-CoV-2 (event) Not sure [facility] Start: 02-15-2023 End: 07-15-2023 Tobacco use panel [facility] National Score (1-10 0), lower number is lower risk 64 [facility] Start: 06-17-2020 Gender identity Identifies as female gender (finding) [facility] Start: 06-17-2020 Sexual orientation Heterosexual (fin ding) [facility] Start: 07-16-2023 End: 07-16-2023 Tobacco smoking status NHIS Unknown if ever smoked [facility] Start: 07-16-2023 Tobacco smoking stat us NHIS Never smoked tobacco (finding) [facility] Clinical Notes 08-20-2022 to 03-11-2025 Veronica Buchanan, Mammo Tech - 03/11/2025 11:30 AM EDTPatient Svetlana Carroll APRN.FORMAL WAITER/WAITRESS - 03/11/2025 10:29 AM EDTTelephone Encounter - Katie Santo RN - 02/20/2025 12:31 PM EDT Note Date & Type Note Facility 03-11-2025 History of Presen t illness Narrative Radiology Service Progress Note PATIENT NAME: Kriss Moore DATE OF SERVICE: March 11, 2025 TIME: 11:25 AM PATIENT IDENTITY VERIFICATION COMPLETED USING TWO (2) IDENTIFIERS: Name and Date of confirmed by patient verbally. FALL SCREENING: Has the patient had 2 falls in the last year or 1 fall with injury or currently using an Ambulatory Assistive Device (Walker, Cane, Wheelchair, Crutches, etc.)? No PATIENT GENDER DATA: Assigned female at . status: : No status: NO. PATIENT RELEVANT IMPLANT DATA REVIEWED: Not Applicable PATIENT PRESENTS WITH AN IMPLANTABLE OR ATTACHED CONDUCTOR SYMPHONIC ORCHESTRA: No RADIOLOGY DEPARTMENT: Mammography PERIPHERAL IV DATA: Not applicable SIGNED BY: Sho Cohen March 11, 2025 11:25 AM documented in this encounter [facility] 03-11-2025 Note HNO ID: [id number] Author: VERONICA BUCHANAN Mammo Tech Service: ? Author Type: Psych Therapist Type: Progress Notes Filed: 03/11/2025 11:25 Note Text: Radiology Service Progress Note PATIENT NAME: Kriss Moore DATE OF SERVICE: March 11, 2025 TIME: 11:25 AM PATIENT IDENTITY VERIFICATION COMPLETED USING TWO (2) IDENTIFIERS: Name and Date of confirmed by patient verbally. FALL SCREENING: Has the patient had 2 falls in the last year or 1 fall with injury or currently using an Ambulatory Assistive Device (Walker, Cane, Wheelchair, Crutches, etc.)? No PATIENT GENDER DATA: Assigned female at . status: : No status: NO. PATIENT RELEVANT IMPLANT DATA REVIEWED: Not Applicable PATIENT PRESENTS WITH AN IMPLANTABLE OR ATTACHED CONDUCTOR SYMPHONIC ORCHESTRA: No RADIOLOGY DEPARTMENT: Mammography PERIPHERAL IV DATA: Not applicable SIGNED BY: Sho Cohen March 11, 2025 11:25 AM [facility] 03-11-2025 Instructions Svetlana Qureshi APRN.FORMAL WAITER/WAITRESS - 03/11/2025 11:16 AM EDT Is Hormone replacement therapy right for you? This question has become vital for women who have reached menopause . Many women are choosing hormone replacement therapy(HRT)) to manage menopause symptoms and to guard against illnesses like osteoporosis, heart disease and Alzheimer's disease. This handout has been prepared to answer some of the questions you may have about this treatment. With the help of your physician, you can decide if HRT is right for you. What is hormone replacement therapy? Hormone replacement therapy (HRT) is a treatment program in which the hormones estrogen and progestin are taken as medications. Estrogen can be taken as pills, skin patches or vaginal creams. Progestin(synthetic forms of progesterone) are usually taken by mouth, but are available as skin patches and vaginal gels. Estrogen and progesterone are naturally produced by a woman's ovaries, glands that also store eggs and release them into the fallopian tubes. Together, estrogen and progesterone thicken the lining of the uterus in preparation for a fertilized egg. Estrogen also influences how the body uses calcium, a mineral important for building bones, and helps maintain healthy levels of cholesterol in the blood. As menopause nears, the ovaries stop most of their production of estrogen and progesterone, greatly lowering levels of these hormones throughout the body. Lowered estrogen levels cause menopause symptoms and can lead to changes in a woman's overall health. Hormone replacement therapy helps replenish lost estrogen, lessening these effects of menopause. What symptoms of menopause can estrogen relieve? Estrogen is prescribed to relieve: Hot flashes (a sudden sensation of warmth that spreads over the upper body) Vaginal dryness Dry skin, eyes or mouth Disturbed sleep (often caused by night sweats brought on by hot flashes) Irritable bladder and loss of bladder control (incontinence) How can estrogen benefit my long-term health? The most important, long-term benefit hormone replacement therapy provides is its protection against osteoporosis and coronary artery disease. Occurrences of these diseases increase after menopause. Osteoporosis, a brittle-bone disease, makes bones fragile and more likely to fracture. Estrogen plays an important role in preserving bone mass. It signals cells in the bones to stop breaking down and aids in bone formation. Coronary artery disease is the narrowing or blockage of arteries that surround the heart muscle. It results when fatty plaque builds up in the artery lyons (known as atherosclerosis). This buildup is associated with high levels of cholesterol in the blood. Estrogen helps maintain healthy levels of cholesterol in the blood. It may also improve blood flow to the heart muscle and reduce blood clotting factors. Further research may soon establish links between estrogen and other age-related illnesses. Taking estrogen may also: Improve your recent memory and may protect you from Alzheimer's disease Improve your mood and overall sense of mental well being Decrease tooth loss Reduce your risk of colon cancer Reduce the risk of macular degeneration Physicians have not yet determined how long a woman needs to take estrogen to reduce these risks, but it is generally prescribed for the remainder of life. Research has shown that hormone replacement may increase a woman's life span by as much as 3 to 5 years. Why is progestin taken? Estrogen stimulates cell growth in the endometrium, the tissue lining the uterus. These extra cells are normally shed from the uterus during menstruation. When taken after menopause, estrogen can cause an overgrowth of cells in the endometrium, a condition that can lead to endometrial cancer. Progestin reduces this risk by making the endometrium shed each month. As a result, women who take progestin may have monthly bleeding. Monthly bleeding can be lessened, and in some cases eliminated, by taking progestin and estrogen together continuously. Women who no longer have a uterus do not usually need to take progestin. What are the risks of hormone replacement therapy? Women who take hormone replacement therapy may have an increased risk for: Breast cancer (with long-term use;this is controversial and not all studies find this risk.) Gallbladder disease Blood clots (dose related) High blood pressure (in some women) What are the side effects of these medications? Estrogen can cause side effects similar to the discomforts of menstruation, including: Tender and swollen breasts Leg cramps Headaches Water retention Progestin can cause: Fatigue Decreased six drive Irritability Monthly bleeding Is HRT safe for all women? Most women can safely take HRT Your physician will carefully review your medical history and health status before prescribing this treatment. In general, HRT is not usually recommended for women who have: Active or past breast cancer Recurrent or active endometrial cancer Abnormal vaginal bleeding Recurrent or active blood clots Liver disease HRT may also not be advisable for women who have: Endometriosis Fibrocystic breast disease Uterine fibroids Gallbladder disease High risk for blood clots Migraine headaches Epilepsy How can I know if HRT is right for me? You and your doctor should thoroughly review all of the risks and benefits of HRT as well as how it can be tailored to your needs. Here are some questions you can ask yourself and discuss with your physician: Am I experiencing difficult menopause symptoms? Do I have any medical conditions or inherited risk factors that would make HRT unsafe for me? Do I have any medical conditions or inherited risk factors that would make HRT beneficial to me? Have I considered alternative treatments? documented in this encounter [facility] 03-11-2025 Note HNO ID: [id number] Author: SVETLANA QURESHI APRN.CNP Service: ? Author Type: Nurse Practitioner Type: Progress Notes Filed: 03/11/2025 12:42 Note Text: Commercial Field Inspector offered: Patient declines. Mars is a 60 year old who presents for an annual gynecologic exam with complaints, menopausal symptoms. Restarted Climara patch again on her own in December after stopping it a year ago due bothersome mild hot flashes, mood and she began to date again. Mood and hot flashes have improved and she would like to continue it. She ran out of patch about a month ago again and symptoms have returned. Postmenopausal: Yes since age 55 HRT use: Yes, Climara patch How long: age 58 for 1 year. Restarted it again on her own in December Still get period: No Menopause symptoms: Hot flashes; Vaginal dryness Number of lifetime partners: 5 Last pap smear: 01/30/2023 normal HPV negative History of abnormal pap: Yes, history of abnormal PAP smears 2018 Pap LSIL HPV neg Jasper benign Bothersome pelvic pain: No Last mammogram: 2022 normal History of abnormal mammogram: No OB History Gravida4 Para2 Term2 Preterm0 AB2 Living2 SAB0 IAB2 Ectopic0 Multiple0 Live Births0 Comment: 2 vaginal deliveries Geographic Information Scientist History LMP: 04/20/2016 (Exact Date), Postmenopausal Age at Menarche: 13 Age at First : Age at Menopause: Geographic Information Scientist History Comments: Sexual Activity: Not Currently; Male Contraception: Condom, None PAST MEDICAL HISTORY Diagnosis Date HYPOTHYROIDISM LGSIL on Pap smear of cervix 02/2019 Osteoarthrosis, unspecified whether generalized or localized, other specified sites knees Rheumatoid arthritis(714.0) Unspecified asthma(493.90) PAST SURGICAL HISTORY Procedure Laterality Date COLONOSCOPY FLX DX W/COLLJ SPEC WHEN PFRMD 08/14/2019 Colonoscopy INSERT INTRAUTERINE DEVICE 04/24/2016 removed 01/30/2024 PAST SURGICAL HISTORY OF 1991/1992 [employer] FAMILY HISTORY Problem Relation Age of Onset Stroke Father Heart Father Hypertension Father Hypertension Mother Cancer Maternal Grandmother ovarian Uterine Cancer Maternal Grandfather Diabetes Paternal Grandmother SOCIAL HISTORY Social History Tobacco Use Smoking status: Former Current packs/day: 0.00 Average packs/day: 1 pack/day for 8.0 years (8.0 ttl pk-yrs) Types: Cigarettes Start date: 08/14/1980 Quit date: 08/14/1988 Years since quittin.5 Smokeless tobacco: Never Vaping Use Vaping status: Never Used Substance Use Topics Alcohol use: Yes Comment: occ REVIEW OF SYSTEMS Abdomen: No abdominal pain, nausea, vomiting, diarrhea, or constipation. No bloating, early satiety, indigestion, or increased flatulence. Bladder: No dysuria, gross hematuria, urinary frequency, urinary urgency, or incontinence Breast: No breast lumps, nipple d/c, overlying skin changes, redness or skin retraction Allergies and current medication updated:Yes SENSITIVE EXAM: The sensitive examination was discussed with the Patient or Patient's Authorized Linseed Cake Trimmer. As applicable, any other physician, advance practice provider, medical student, or other health professional student that will be observing or involved in the sensitive examination for educational or training purposes was discussed with the Patient or Authorized Linseed Cake Trimmer. The Patient or Authorized Linseed Cake Trimmer has agreed to proceed with the sensitive examination. (Sensitive examination includes inspection and/or palpation of the breasts, pelvis, prostate and anorectal regions). EXAM: BP 124/84 Ht 5' 9.5 (1.77m) Wt 179 lb (81.2kg) LMP 04/20/2016 BMI 26.06 kg/(m2). GENERAL: pleasant, female in no apparent distress HEENT: Normocephalic, atraumatic, mucus membranes moist, and no lesions NECK: Supple, full range of motion, no adenopathy, and thyroid normal DERMATOLOGY: Normal, without lesions, non-icteric, and non-hirsute BREAST: soft, non-tender, symmetric, no dominant mass, normal nipple-areolar complex, no lymphadenopathy, and no nipple discharge CHEST: Normal inspiratory effort ABDOMEN: soft, non-tender, and no masses PELVIC: external genitalia normal, normal Bartholin's glands, urethra, [place]'s glands, no vulvar lesions, no cervical lesions, physiologic discharge present, normal appearing perineal body and perianal region, atrophic changes BIMANUAL: uterus normal size, shape and consistency, no adnexal masses, and non-tender RECTOVAGINAL: deferred. NEURO: alert and oriented x3,exam grossly non-focal EXTREMITIES: normal ASSESSMENT/PLAN: 1) Health maintenance: Pap done with HPV. Mammogram ordered Mammogram up to date Nutrition, exercise and routine health maintenance exams reviewed. Calcium/Vitamin D supplementation information provided. Colon cancer screening: up to date with screening 2. Symptomatic menopausal or female climacteric states - ICD9: 627.2, ICD10: N95.1 - Restarted Climar (more content not included)... [facility] 03-11-2025 History of Presen t illness Narrative Commercial Field Inspector offered: Patient declines. Kriss is a 60 year old who presents for an annual gynecologic exam with complaints, menopausal symptoms. Restarted Climara patch again on her own in December after stopping it a year ago due bothersome mild hot flashes, mood and she began to date again. Mood and hot flashes have improved and she would like to continue it. She ran out of patch about a month ago again and symptoms have returned. Postmenopausal: Yes since age 55 HRT use: Yes, Climara patch How long: age 58 for 1 year. Restarted it again on her own in December Still get period: No Menopause symptoms: Hot flashes; Vaginal dryness Number of lifetime partners: 5 Last pap smear: 01/30/2023 normal HPV negative History of abnormal pap: Yes, history of abnormal PAP smears 2018 Pap LSIL HPV neg Jasper benign Bothersome pelvic pain: No Last mammogram: 2022 normal History of abnormal mammogram: No OB History Gravida4 Para2 Term2 Preterm0 AB2 Living2 SAB0 IAB2 Ectopic0 Multiple0 Live Births0 Comment: 2 vaginal deliveries Geographic Information Scientist History LMP: 04/20/2016 (Exact Date), Postmenopausal Age at Menarche: 13 Age at First : Age at Menopause: Geographic Information Scientist History Comments: Sexual Activity: Not Currently; Male Contraception: Condom, None PAST MEDICAL HISTORY Diagnosis Date HYPOTHYROIDISM LGSIL on Pap smear of cervix 02/2019 Osteoarthrosis, unspecified whether generalized or localized, other specified sites knees Rheumatoid arthritis(714.0) Unspecified asthma(493.90) PAST SURGICAL HISTORY Procedure Laterality Date COLONOSCOPY FLX DX W/COLLJ SPEC WHEN PFRMD 08/14/2019 Colonoscopy INSERT INTRAUTERINE DEVICE 04/24/2016 removed 01/30/2024 PAST SURGICAL HISTORY OF 1991/1992 [employer] FAMILY HISTORY Problem Relation Age of Onset Stroke Father Heart Father Hypertension Father Hypertension Mother Cancer Maternal Grandmother ovarian Uterine Cancer Maternal Grandfather Diabetes Paternal Grandmother SOCIAL HISTORY Social History Tobacco Use Smoking status: Former Current packs/day: 0.00 Average packs/day: 1 pack/day for 8.0 years (8.0 ttl pk-yrs) Types: Cigarettes Start date: 08/14/1980 Quit date: 08/14/1988 Years since quittin.5 Smokeless tobacco: Never Vaping Use Vaping status: Never Used Substance Use Topics Alcohol use: Yes Comment: occ REVIEW OF SYSTEMS Abdomen: No abdominal pain, nausea, vomiting, diarrhea, or constipation. No bloating, early satiety, indigestion, or increased flatulence. Bladder: No dysuria, gross hematuria, urinary frequency, urinary urgency, or incontinence Breast: No breast lumps, nipple d/c, overlying skin changes, redness or skin retraction Allergies and current medication updated:Yes SENSITIVE EXAM: The sensitive examination was discussed with the Patient or Patient's Authorized Linseed Cake Trimmer. As applicable, any other physician, advance practice provider, medical student, or other health professional student that will be observing or involved in the sensitive examination for educational or training purposes was discussed with the Patient or Authorized Linseed Cake Trimmer. The Patient or Authorized Linseed Cake Trimmer has agreed to proceed with the sensitive examination. (Sensitive examination includes inspection and/or palpation of the breasts, pelvis, prostate and anorectal regions). EXAM: BP 124/84 Ht 5' 9.5 (1.77m) Wt 179 lb (81.2kg) LMP 04/20/2016 BMI 26.06 kg/(m^2). GENERAL: pleasant, female in no apparent distress HEENT: Normocephalic, atraumatic, mucus membranes moist, and no lesions NECK: Supple, full range of motion, no adenopathy, and thyroid normal DERMATOLOGY: Normal, without lesions, non-icteric, and non-hirsute BREAST: soft, non-tender, symmetric, no dominant mass, normal nipple-areolar complex, no lymphadenopathy, and no nipple discharge CHEST: Normal inspiratory effort ABDOMEN: soft, non-tender, and no masses PELVIC: external genitalia normal, normal Bartholin's glands, urethra, [place]'s glands, no vulvar lesions, no cervical lesions, physiologic discharge present, normal appearing perineal body and perianal region, atrophic changes BIMANUAL: uterus normal size, shape and consistency, no adnexal masses, and non-tender RECTOVAGINAL: deferred. NEURO: alert and oriented x3,exam grossly non-focal EXTREMITIES: normal ASSESSMENT/PLAN: 1) Health maintenance: Pap done with HPV. Mammogram ordered Mammogram up to date Nutrition, exercise and routine health maintenance exams reviewed. Calcium/Vitamin D supplementation information provided. Colon cancer screening: up to date with screening 2. Symptomatic menopausal or female climacteric states - ICD9: 627.2, ICD10: N95.1 - Restarted Climara patch again on her own in December after stopping it a year ago due bothersome mild hot flashes, mood and she began to date again. 3. Hormone replacement therapy (HRT) - ICD9: V07.4, ICD10: Z79.890 A full discussion of the benefit-risk ratio of hormonal replacement therapy was carried out. Reduction of risk for osteoporosis and ischemic heart disease were explained. She has no contraindications to these hormones. The range of side effects including possible thrombotic complications, breast cancer was discussed. All of her questions about this therapy were answered, she accepts the risks and would like to proceed. - PROGESTERONE MICRONIZED 100 MG CAPSULE - ESTRADIOL 0.025 MG/24 HR WEEKLY TRANSDERMAL PATCH 4) Follow up one year or sooner as needed Svetlana Qureshi APRN.FORMAL WAITER/WAITRESS documented in this encounter [facility] 02-20-2025 Telephone encounter Note Received message in appointment request for a Mamm with KRISHNA. Please file and route to PSS. Katie Santo RN [facility] 02-20-2025 Miscellaneous Notes Received message in appointment request for a Mamm with KRISHNA. Please file and route to PSS. Katie Santo, DAVID documented in this encounter [facility] 02-01-2024 Telephone encounter Note See pt's condition update. Tammy Elise LPN [facility] 02-01-2024 Miscellaneous Notes See pt's condition update. Tammy Elise LPN Urine culture negative 01/30/2024. She had a low grade fever in the office. Suspected viral illness. Please obtain clinical update. Svetlana Qureshi APRN.AFUA See pt's [employer] message re: UTI sxs. See pended order below and further advise. Tammy Elise LPN documented in this encounter [facility] 02-01-2024 Telephone encounter Note Urine culture negative 01/30/2024. She had a low grade fever in the office. Suspected viral illness. Please obtain clinical update. Svetlana Qureshi APRN.FORMAL WAITER/WAITRESS [facility] 02-01-2024 Telephone encounter Note See pt's [employer] message re: UTI sxs. See pended order below and further advise. Tammy Elise LPN [facility] 01-30-2024 History of Presen t illness Narrative Kriss Moore is a 58 year old female who presents for problem visit cramping with IUD for 2-3 days HPI: Abdominal cramping for past 2-3 days. Assumes it is due to IUD although it has not caused cramping in the past. Had loose stools a couple of days ago. Started feeling a little warm this morning, CANTU, abdominal cramping. No known exposure to illness although she works at the [employer] Denies urinary frequency, urgency or burning. Denies vaginal odor, discharge or irritation. Last sexually active 3 months ago. OB History T2 L2 SAB0 IAB2 Ectopic0 Multiple0 Live Births0 Comment: 2 vaginal deliveries Geographic Information Scientist History LMP: 04/20/2016 (Exact Date), IUD Age at Menarche: Age at First : Age at Menopause: Geographic Information Scientist History Comments: Sexual Activity: Not Currently; Male Contraception: Condom PAST MEDICAL HISTORY Diagnosis Date HYPOTHYROIDISM LGSIL on Pap smear of cervix 02/2019 Osteoarthrosis, unspecified whether generalized or localized, other specified sites knees Rheumatoid arthritis(714.0) Unspecified asthma(493.90) PAST SURGICAL HISTORY Procedure Laterality Date COLONOSCOPY FLX DX W/COLLJ SPEC WHEN PFRMD 08/14/2019 Colonoscopy INSERT INTRAUTERINE DEVICE 04/24/2016 PAST SURGICAL HISTORY OF [employer] FAMILY HISTORY Problem Relation [...] Use Topics Alcohol use: Yes Comment: occ Current Outpatient Medications Medication Sig estradiol (CLIMARA) 0.025 mg/24 hr Apply 1 Patch as directed one time a week. budesonide/formoterol fumarate (SYMBICORT INHALATION) Inhale as instructed. fluticasone propion/salmeterol (ADVAIR DISKUS INHALATION) Inhale as instructed. (Patient not taking: Reported on 01/30/2023) magnesium oxide (MAG-OX) 400 mg (241.3 mg magnesium) tablet QVAR REDIHALER 80 mcg/actuation inhaler (Patient not taking: Reported on 01/30/2023) cetirizine (ZYRTEC) 10 mg tablet folic acid 1 mg tablet levonorgestrel (MIRENA) 20 mcg/24 hr (5 years) IUD Inserted in office LEUCOVORIN CALCIUM, BULK, MISC METHOTREXATE SODIUM 2.5 MG TAB Take 8 pills once weekly levothyroxine (SYNTHROID) 100 mcg ORAL Tab Take one(1) tablet daily. duloxetine (CYMBALTA) 30 mg ORAL CpDR Take one(1) capsule daily. No current facility-administered medications for this visit. Allergies As of Date: 01/30/2024 Allergen Noted Reaction DUST MITES 05/05/2002 GRASS POLLEN 05/05/2002 Fully Assessed 01/30/2024 REVIEW OF SYSTEMS Abdomen: see HPI. No nausea, vomiting, diarrhea, or constipation. Bladder: No dysuria, gross hematuria, urinary frequency, urinary urgency, or incontinence. Allergies and current medication updated:Yes EXAM: Temp 100.4 Wt 183 lb (83.0kg) LMP 04/20/2016 GENERAL: pleasant, female in mild distress CHEST: Normal inspiratory effort ABDOMEN: soft, non-tender, and no masses PELVIC: external genitalia normal, normal Bartholin's glands, urethra, [place]'s glands, no vulvar lesions, no cervical lesions, thick frazier discharge present, normal appearing perineal body and perianal region. NO CMT IUD strings visible BIMANUAL: uterus normal size, shape and consistency, no adnexal masses, and Mild general lower abdominal tenderness NEURO: alert and oriented x3,exam grossly non-focal ASSESSMENT/PLAN: 1. Abdominal cramping - ICD9: 789.00, ICD10: R10.9 (primary diagnosis) - loose stools 2 days ago - REMOVE INTRAUTERINE DEVICE - done today - GONORRHEA/CHLAMYDIA NAAT - BONNIE/TRICHOMONAS NAAT - BACTERIAL VAGINOSIS NAAT 2. Fever, unspecified fever cause - ICD9: 780.60, ICD10: R50.9 - probable viral illness - URINE CULTURE 3. Leukocytes in urine - ICD9: 791.7, ICD10: R82.998 UAC POC negative except for trace leuks - URINE CULTURE 4. Screen for STD (sexually transmitted disease) - ICD9: V74.5, ICD10: Z11.3 - GONORRHEA/CHLAMYDIA NAAT 5. Vaginal discharge - ICD9: 623.5, ICD10: N89.8 - GONORRHEA/CHLAMYDIA NAAT - BONNIE/TRICHOMONAS NAAT - BACTERIAL VAGINOSIS NAAT Svetlana Qureshi APRN.AFUA Mars presents for removal of IUD due to pain. UNIVERSAL PROTOCOL / SAFETY CHECKLIST Procedure to be Performed: IUD removal Sign In: A Moment of CARE was completed. Personnel directly involved with the procedure wore the appropriate PPE (Personal Protective Equipment). Patient/Surrogate Stated/Verified: PATIENT VERIFIED(optional for EMERGENT procedures): Patient name, Date of , Relevant allergies, and The intended procedure Time Out Communication: Intended patient and procedure match the source documents. Consent documented and matches the intended procedure. Relevant labs, photos, and/or imaging studies have been reviewed. Sign Out: SIGN OUT (optional for EMERGENT procedures): All specimen containers correctly labeled. Post-procedure follow-up management communicated and Plan of Care Visit completed when applicable. Svetlana Qureshi APRN.CNP PROCEDURE: Speculum placed in vagina, IUD string visualized and grasped with ring forceps. ASSESSMENT/PLAN: IUD removed without difficulty, intact, and patient tolerated procedure well. Contraception plans: postmenopausal Svetlana Qureshi APRN.CNP Medical Decision Making: Problems: Moderate: Acute illness with systemic symptoms Data: Unique test(s) ordered: 3+ Medical Decision Making Level: 4 - Moderate documented in this encounter [facility] 07-16-2023 Discharge summary Note Date/Time July 16, 2023 4:16am [facility] Medical Records Department [address] [place] [address] Emergency Department Summary 07/16/23 MR#: [id number] Acct: [id number] Name: KRISS MOORE Rep #:[id number] : 1965 58 From: Adrian Browne PCP: Dr. Mickey Banuelos MD Status:[facility] ER Location: ED HPI History of Present Illness Chief Complaint: Asthma [facility] Medical History (Updated 07/16/23 @ 04:13 by Valentine Cuadra) Asthma Hypothyroid Rheumatoid arteritis Home Medications albuterol sulfate 90 mcg/actuation aerosol inhaler inhalation 07/16/23 [History Last Taken Unknown] amoxicillin 875 mg-potassium clavulanate 125 mg tablet 1 tab PO BID 7 days #14 tabs 07/16/23 [Rx Last Taken Unknown] duloxetine 30 mg capsule,delayed release mg PO 07/16/23 [History Last Taken Unknown] levothyroxine 112 mcg tablet mcg 07/16/23 [History Last Taken Unknown] methotrexate sodium 2.5 mg tablet mg 07/16/23 [History Last Taken Unknown] Allergy/AdvReac Type Severity Reaction Status Date / Time No Known Allergies Allergy Verified 07/16/23 04:12 Social History Smoking Status: Never smoker EXAM Physical Exam Const Vital Signs: 07/16/23 04:09 07/16/23 04:15 07/16/23 04:32 Temperature 97.9 F Temperature Source Temporal Pulse Rate 87 71 Respiratory Rate 18 12 Respiratory Effort Normal Non-Labored Respiratory Depth Normal Respiratory Pattern Normal Normal Blood Pressure 147/79 H Blood Pressure Mean 101 Pulse Ox 94 Oxygen Delivery Method Room Air Room Air 07/16/23 04:23 Temperature Temperature Source Pulse Rate Respiratory Rate Respiratory Effort Respiratory Depth Respiratory Pattern Blood Pressure Blood Pressure Mean Pulse Ox Oxygen Delivery Method Room Air MDM MDM MDM Narrative Medical decision making narrative: HISTORY OF PRESENT ILLNESS: 58-year-old female here with shortness of breath. States has history of asthma. Notes 2 to 3 days of chest tightness, congestion, postnasal drip. Denies any bleeding diathesis. Denies any fever. No history of hypertension, hyperlipidemia, type 2 diabetes. Notes she has a history of smoking but has notsmoked since she was a teenager. The patient denies recent surgery in the last 4 weeks or immobilization in the last 3 days, denies previous diagnosis of DVT or PE, hemoptysis, unilateral leg swelling or malignancy with treatment the last 6 months or palliative. No estrogen use noted. REVIEW OF SYSTEMS: Pertinent positives: Shortness of breath Pertinent negatives: Bleeding diathesis, lower extremity edema PHYSICAL EXAM: Nursing triage notes reviewed, Vital signs reviewed Constitutional: please see mdm HENT: MMM Eyes: Pupils equal round and reactive to light, Extraocular muscles intact Neck: No stridor, no JVD, full neck ROM Lungs: Prolonged expiratory phase, diminished breath sounds, expiratory wheezingnoted. No increased work of breathing, no conversational dyspnea, no accessory muscle use, no nasal flaring. No respiratory distress noted Heart: Regular rate and rhythm, No murmurs, No rubs and No gallops, 2+ distal pulses (radial, femoral, posterior tibial) in all extremities Abdomen: Soft, there is no tenderness, rigidity, rebound or guarding, no obviousperitoneal signs, no palpable pulsatile abdominal masses, no auscultated abdominal bruit : No CVAT Extremities: No edema Neuro: No focal neurological deficits, cranial nerves II through XII intact, 5/5strength in all extremities. Intact sensation to light touch in all extremities,2+ reflexes bilateral patella tendons. Normal gait. No ataxia. Skin: No rash or lesions noted MEDICAL DECISION MAKING: Chief Complaint: Shortness of breath External records reviewed: No recent Gusman imaging of the chest, no recent echocardiograms noted Factors affecting care: Asthma, rheumatoid arthritis and hypothyroidism Social determinants of health: Former smoker History obtained from others: Patient's friend Consults: none [facility] Narrative: Patient is hemodynamically stable, afebrile, nontoxic-appearing I considered the following differential diagnosis: Asthma/COPD exacerbation, COVID-19, pneumonia, ACS, arrhythmia, anemia, I obtained a broad lab and imaging work-up to further elucidate etiology of patient's complaints. ALL IMAGES (IF OBTAINED) HAVE BEEN PERSONALLY REVIEWED AND INTERPRETED BY MYSELF. EKG with normal sinus rhythm, normal axis, normal normals, no STEMI CBC without leukocytosis, severe anemia, no thrombocytopenia. BMP without evidence of significant electrolyte abnormalities, no anion gap, no acute kidney injury. BNP within normal limits suggestive of no excessive myocyte stretch Troponin is negative, no evidence of myocardial ischemia Chest x-ray read by myself shows evidence of right-sided pneumonia. Amalgamation the patient's labs and images were remarkable for evidence of pneumonia. The patient was ambulated to ensure no evidence of exertional hypoxia. She ambulated with a pulse ox of 93%. There is no indication for hospitalization at this time. She was given oral Augmentin and discharged stable condition. Strict return precautions were discussed The patient and/or family, caregivers express understanding. The patient and/orfamily, caregivers agrees with the plan. Shared decision making: I will have a discussion with the patient and or visitors regarding risk/benefits of further testing or admission. They will be made aware of of the risk/benefits inherent in this decision they will be given the opportunity to voice understanding. Total critical care time today provided was at least 0 minutes. This excludes separately billable procedures. Critical care time (if documented) is secondary to the patient having high probability of clinically significant/life threatening deterioration in the patient's condition which required my urgent intervention. Impression: 1. Shortness of breath 2. Mild Asthma exacerbation 3. Community-acquired pneumonia Dispo: Discharge Lab Data Labs: Laboratory Results - last 24 hr 07/16/23 04:30 WBC 9.3 RBC 4.49 Hgb 13.6 Hct 42.0 MCV 93.5 MCH 30.3 MCHC 32.4 RDW Std Deviation 46.8 H RDW Coeff of Kang 13.7 Plt Count 299 MPV 10.7 Immature Gran % (Auto) 0.500 Neut % (Auto) 83.3 H Lymph % (Auto) 11.2 L [place] % (Auto) 4.5 Eos % (Auto) 0.2 Baso % (Auto) 0.3 Absolute Neuts (auto) 7.7 Absolute Lymphs (auto) 1.04 Nucleated RBC % 0 Sodium 141 Potassium 4.0 Chloride 112 H Carbon Dioxide 24.0 Anion Gap 5 BUN 12 Creatinine 0.77 Estim Creat Clear Calc 86.12 Est GFR (MDRD) Af Amer 99 Est GFR (MDRD) Non-Af 82 BUN/Creatinine Ratio 15.6 Glucose 136 H Calcium 9.0 Troponin I High Sens 22 B-Natriuretic Peptide 44.9 Radiography Diagnostic Testing: Clinical Impression(s) from Imaging Studies Chest X-Ray 07/16/23 04:22 IMPRESSION: Infiltrate within the inferior aspect of the right upper lobe, consistent with atelectasis and probable pneumonia. Electronically Signed: Faizan Manzo MD at 5:13 EDT , Discharge Plan Triage Chief Complaint: Asthma ED Provider: Adrian Decker Dx/Rx/DC Orders Instructions: ED Pneumonia (Adult) Prescriptions: New amoxicillin-pot clavulanate 875-125 mg tablet 1 tab PO BID 7 Days Qty: 14 0RF No Action methotrexate sodium 2.5 mg tablet Patient Comments: take 8 tablets by mouth every week albuterol sulfate 90 mcg/actuation HFA aerosol inhaler INHALATION Patient Comments: inhale 1 to 2 puffs every 4 hours if needed for asthma wheezing or cough levothyroxine 112 mcg tablet Patient Comments: take 1 tablet by mouth once daily duloxetine 30 mg capsule,delayed release(DR/EC) PO Patient Comments: take 1 tablet by mouth once daily Stand Alone Forms: ED Work / School Excuse Primary Care Provider: Mickey Banuelos Referrals: Mickey Banuelos MD [Primary Care Provider] - Activity Restrictions/Additional Instructions: Thank you for trusting us with your care today! Please take Tylenol (2 pills, 650 mg), ibuprofen (2 pills, 400 mg) every 6 hoursas needed for pain and fever control. Please take antibiotics as prescribed. Please use your inhaler as needed. Please discontinue taking steroids as these may decrease your immune system response infection Please return to the emergency department if your symptoms change or worsen. Specifically develop worsening shortness of breath if you notice your pulse oximeter reads less than 92% consistently. Please follow with your primary care physician for further outpatient evaluationand management. Disposition Disposition: Home, Self Care What to do if you have Problems For any increased pain, shortness of breath, bleeding, nausea or vomiting, chestpain, or any unexpected problems, contact your Primary Care Provider. Call [facility] ([phone]) or report to the closest Emergency Room. Call 911 if necessary. 07/16/23 0655 <Electronically signed by Adrian Decker DO> Cosigner Signature (if applicable): CC: Dr. Mickey Banuelos MD ~ Signed [facility] Work Phone: [phone]) 437-322810-01-2023 History of Present illness Narrative* Dominique Williamson APRN.FORMAL WAITER/WAITRESS - 07/15/2023 12:44 PM EDT CC: Patient presents with: Cough: Runny nose [...] 85.8 kg (189 lb 3.2 oz) LMP 04/20/2016(Exact Date) SpO2 95% BMI 27.15 kg/m General [...] occur. Patient agreeable to treatment plan. Dominique Williamson APRN.AFUA [facility] Miscellaneous Notes* Letter - Mammography Coordinator - 02/15/2023 12:10 PM EDT February 16, 2023 PID: [id number] [address] Oscar [address] [place] [address] Dear Breana Oscar, We are pleased to inform you that [...] report will be kept on file at [facility] as part of your permanent medical record and are available for your continuing care. Thank you for allowing us to help in meeting your health care needs. Sincerely, Dr. Winters Interpreting Radiologist [facility] (Normal over 40) documented in [facility] History of Present illness Narrative* Nilda Cervantes RT(R) - 02/15/2023 10:10 AM EDT Radiology Service Progress Note PATIENT NAME: Kriss Moore DATE OF SERVICE: February 15, 2023 TIME: 10:19 AM PATIENT IDENTITY VERIFICATION COMPLETED USING TWO (2) IDENTIFIERS: Name and Date of confirmedby patient verbally. FALL SCREENING: Has the patient [...] 15, 2023 10:19 AM [facility] Miscellaneous Notes* Telephone Encounter - Ambika Olea RN - 01/19/2023 9:07 AM EDT Last annual with KJ 08/02/21. [employer] message sent to patient to schedule annual. Requested Prescriptions Pending Prescriptions Disp Refills Estradiol (YUVAFEM) 10 mcg vaginal tablet 8 tablet 1 Sig: Use vaginally 2 times per week Ambika Olea RN [facility] History of Present illness Narrative* Alana Soriano PA-C - 08/20/2022 11:47 AM EST This note was created using [employer]. Subjective Kriss Moore is a 57 year old female. HPI Patient presents with the chief complaint of fever, cough, congestion headache over the past 2 or 3days. 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 She did 2 home COVID test which were negative. She does have a history of asthma and is on Advair and has an albuterol inhaler. She also has a history of RA and is on methotrexate. Review of Systems Constitutional: Positive for chills, fatigue and fever. HENT: Positive for sore throat. Negative for ear pain. Respiratory: Positive for cough and wheezing. Cardiovascular: Negative. Gastrointestinal: Negative. Genitourinary: Negative. Musculoskeletal: Positive for myalgias. Neurological: Positive for headaches. All other systems reviewed and are negative. PAST MEDICAL HISTORY Diagnosis Date HYPOTHYROIDISM LGSIL on Pap smear of cervix 02/2019 Osteoarthrosis, unspecified whether generalized or localized, other specified sites knees Rheumatoid arthritis(714.0) Unspecified asthma(493.90) Current Outpatient Medications Medication Sig Dispense Refill Estradiol (YUVAFEM) 10 mcg vaginal tablet Use vaginally. Nightly for 2 weeks. Then 2 times per weekongoing. 20 tablet 11 fluticasone propion/salmeterol (ADVAIR DISKUS INHALATION) Inhale as instructed. magnesium oxide (MAG-OX) 400 mg (241.3 mg magnesium) tablet 0 predniSONE (DELTASONE) 10 mg tablet 0 QVAR REDIHALER 80 mcg/actuation inhaler cetirizine (ZYRTEC) 10 mg tablet 0 folic acid 1 mg tablet levonorgestrel (MIRENA) 20 mcg/24 hr (5 years) IUD Inserted in office 1 Each 0 LEUCOVORIN CALCIUM, BULK, MISC METHOTREXATE SODIUM 2.5 MG TAB Take 8 pills once weekly 0 levothyroxine (SYNTHROID) 100 mcg ORAL Tab Take one(1) tablet daily. 0 duloxetine (CYMBALTA) 30 mg ORAL CpDR Take one(1) capsule daily. 0 No current facility-administered medications for this visit. PAST SURGICAL HISTORY Procedure Laterality Date COLONOSCOPY FLX DX W/COLLJ SPEC WHEN PFRMD 08/14/2019 Colonoscopy INSERT INTRAUTERINE DEVICE 04/24/2016 PAST SURGICAL HISTORY OF 1992/1992 [employer] FAMILY HISTORY Problem Relation Age of Onset Stroke Father Heart Father Hypertension Father Hypertension Mother Cancer Maternal Grandmother ovarian Diabetes Paternal Grandmother Social History Tobacco Use Smoking status: Former Packs/day: 1.00 Years: 8.00 Pack years: 8.00 Types: Cigarettes Quit date: 08/14/1988 Years since quittin.0 Smokeless tobacco: Never Vaping Use Vaping Use: Never used Substance Use Topics Alcohol use: Yes Comment: occ Objective BP 120/68 Pulse 90 Temp 37.5 C (99.5 F) Resp 20 Wt 83.2 kg (183 lb 6.4 oz) LMP 04/20/2016(Exact Date) SpO2 98% BMI 26.32 kg/m Physical Exam Vitals reviewed. Constitutional: Appearance: Normal appearance. HENT: Head: Normocephalic and atraumatic. Right Ear: Tympanic membrane, ear canal and external ear normal. Left Ear: Tympanic membrane, ear canal and external ear normal. Nose: Congestion present. Mouth/Throat: Mouth: Mucous membranes are moist. Pharynx: Oropharynx is clear. Cardiovascular: Rate and Rhythm: Normal rate and regular rhythm. Heart sounds: Normal heart sounds. Pulmonary: Effort: Pulmonary effort is normal. Breath sounds: Normal breath sounds. Musculoskeletal: Cervical back: Neck supple. Skin: General: Skin is warm and dry. Neurological: Mental Status: She is alert. Assessment and Plan ASSESSMENT/PLAN: 1. Influenza-like illness - ICD9: 487.1, ICD10: J11.1 COVID and flu testing pending. Discussed supportive care with [id number] medicines. Discussedif COVID-positive would recommend oral antivirals as she is on immunosuppressive medication and hashistory of asthma. Follow-up with PCP for this. Red flags for ER care discussed. Patient agreeable. - COVID WITH FLUA+B, ROUTINE Alana Soriano PA-C [facility]Reason for visit Narrative* Chief Complaint PCR COVID/TRAVEL Reason for Visit Encounter for screen ing for COVID-19 [facility] Work Phone: Evaluation note* Diagnosis Onset Date Resolution Status Encounter for screening for COVID-19 acute [facility] Work Phone: Evaluation note* Diagnosis Influenza-like illness- Primary Influenza with other respiratory manifestations documented in this encounter [facility] noteNo assessment information availableWCoshocton [facility] Work Phone: Evaluation note* Diagnosis Acute cough- Primary URI, acute Acute upper respiratory infections of unspecified site documented in this encounter [facility] note* Diagnosis Encounter for screening mammogram for malignant neoplasm of breast Other screening mammogram Dense breasts Inconclusive mammogram [facility] Diagnosis Abdominal cramping- Primary Abdominal pain, unspecified site Fever, unspecified fever cause Leukocytes in urine Other cells and casts in urine Screen for STD (sexually transmitted disease) Screening examination for venereal disease Vaginal discharge Leukorrhea, not specified as infective [facility] Diagnosis Urinary urgency- Primary Urgency of urination documented in this encounter [facility] note* Diagnosis Encounter for screening mammogram for malignant neoplasm of breast- Primary Other screening mammogram [facility]* Diagnosis Encounter for gynecological examination (general) (routine) without abnormal findings- Primary Symptomatic menopausal or female climacteric states Hormone replacement therapy (HRT) Need for prophylactic hormone replacement therapy (postmenopausal) Encounter for screening mammogram for breast cancer Encounter for Papanicolaou smear for cervical cancer screening Encounter for screening for human papillomavirus (HPV) Special screening examination for human papillomavirus (HPV) documented [facility]* Diagnosis Encounter for screening mammogram for malignant neoplasm of breast Other screening mammogram [facility] Additional Instructions Thank you for trusting us with your care today! Please take Tylenol (2 pills, 650 mg), ibuprofen (2 pills, 400 mg) every 6 hours as needed for pain and fever control. Please take antibiotics as prescribed. Please use your inhaler as needed. Please discontinue taking steroids as these may decrease your immune system response infection Please return to the emergency department if your symptoms change or worsen. Specifically develop worsening shortness of breath if you notice your pulse oximeter reads less than 92% consistently. Please follow with your primary care physician for further outpatient evaluation and management.[facility] Work Phone: Reason for referral (narrative)* Diagnostic Procedure Only (Routine) - Closed Specialty Diagnoses / Procedures Referred By Contac t Referred To Contact [facility] Diagnoses Encounter for screening mammogram for malignant neoplasm of breast Dense breasts Procedures MATHEW SCREENING W KRISHNA SCREENING DIGITAL BREAST TOMOSYNTHESIS BI SCREENING MAMMOGRAPHY BI 2-VIEW BREAST INC Yarelis Short MD [address] [place] [address] [facility] [address] [place] [address] Referral ID Status Reason Start Date Expiration Date V isits Requested Visits Authorized [id number] Closed Auto-Generate d Referral 01/30/2023 02/29/2024 1 1 [facility] for referral (narrative)* Outpatient Procedure (Routine) - Pending Review Specialty Diagnoses / Procedures Referred By Jane schmitz Referred To Contact [facility] Diagnoses Abdominal cramping Procedures REMOVE INTRAUTERINE DEVICE REMOVE INTRAUTERINE DEVICE Svetlana Qureshi APRN.FORMAL WAITER/WAITRESS [address] [place] [address] [facility] [address] [place] [address] Referral ID Status Reason Start Date Expiration Date Visits Requested Visits Authorized [id number] Pending Review Auto-Generat ed Referral 01/30/2024 01/29/2025 1 1 [facility] for referral (narrative)No reason for referral information availableWCoshocton [facility]* Diagnostic Procedure Only (Routine) - Closed Specialty Diagnoses / Procedures Referred By Jane schmitz Referred To Contact [facility] Diagnoses Encounter for screening mammogram for malignant neoplasm of breast Dense breasts Procedures MATHEW SCREENING W KRISHNA SCREENING DIGITAL BREAST TOMOSYNTHESIS BI SCREENING MAMMOGRAPHY BI 2-VIEW BREAST INC CAD Yarelis Williamson MD [address] [place] [address] [facility] [address] [place] [address] Referral ID Status Reason Start Date Expiration Date V isits Requested Visits Authorized [id number] Closed Auto-Generate d Referral 01/30/2023 02/29/2024 1 1 [facility] for visit Narrative* Diagnostic Procedure Only (Routine) - Closed Specialty Diagnoses / Procedures Referred By Jane schmitz Referred To Contact [facility] Diagnoses Encounter for screening mammogram for malignant neoplasm of breast Procedures MATHEW SCREENING W KRISHNA SCREENING DIGITAL BREAST TOMOSYNTHESIS BI SCREENING MAMMOGRAPHY BI 2-VIEW BREAST INC Svetlana Gómez APRN.FORMAL WAITER/WAITRESS [address] [place] [address] Phone: tel: fax: [facility] [address] [place] [address] Referral ID Status Reason Start Date Expiration Date V isits Requested Visits Authorized [id number] Closed Auto-Generate d Referral 02/20/2025 03/22/2026 1 1 [facility] Summary Purpose Family History No Family History Records FoundNo Family History Records FoundNo Family History Records FoundNo Family History Records Found Advance Directives No Advanced Directives Records Found Advance Directive Response Recorded Date/ Time Living Will No July 16 3 4:14am Power of Supervisor [employer] No July 16 023 4:14am Advance Directive Response Recorded Date/ Time Living Will No July 16 3:14am Power of Supervisor [employer] No July 16 023 3:14am Chief Complaint and Reason for Visit Chief Complaint PCR COVID/TRAVEL S/O LABS EVERY 3 MONTHS Reason for Visit Encounter for screen ing for COVID-19 Chief Complaint PAIN- COPY PCP Chief Complaint S/O- PAIN- COPY PCP asthma Chief Complaint asthma ELEVATED LIVER ENZYMES Chief Complaint asthma ELEVATED LIVER ENZYMES 2 ORDERING DOCTORS/ORDERS SCANNED Chief Complaint 2 ORDERING DOCTORS/O RDERS SCANNED Chief Complaint S/O- PAIN- COPY PCP asthma ELEVATED LIVER ENZYMES Chief Complaint Admit Date 2 ORDERING DRS June 11, 2025 4: 35pm Health Concerns Infection Onset Date Last Indicated Resolved Time COVID-19 Rule-Out 08/20/2022 08/20/2022 Infection Onset Date Last Indicated Resolved Time COVID-19 Rule-Out 07/15/2023 07/15/2023 Additional Source Comments INFORMATION SOURCE (unrecogn ized section and content) DATE CREATED AUTHOR 05/09/2018 [facility] DATE CREATED AUTHOR AUTHOR'S ORGANIZ ATION 06/09/2018 [facility] DATE CREATED AUTHOR AUTHOR'S ORGANIZ ATION 03/18/2025 [facility] DATE CREATED AUTHOR AUTHOR'S ORGANIZ ATION 06/19/2025 [facility] Goals (unrecognized section and content) Goals may be documented in a n alternate sectionGoals may be documented in an alternate sectionGoals may be documented in an alternate sectionGoals may be documented in an alternate sectionGoals may be documented in an alternate sectionGoals may be documented in an alternate sectionGoals may be documented in an alternate sectionGoals may be documented in an alternate sectionGoals may be documented in an alternate sectionGoals may be documented in an alternate sectionGoals may be documented in an alternate section Source Comments (unrecognize d section and content) In the event this informatio n is protected by the Federal Confidentiality of Alcohol and Drug Abuse Patient Records regulations: The Federal rules restrict any use of the information to criminally investigate or prosecute any alcohol or drug abuse patient.[facility] the event this information is protected by the Federal Confidentiality of Alcohol and Drug Abuse Patient Records regulations: The Federal rules restrict any use of the information to criminally investigate or prosecute any alcohol or drug abuse patient.[facility] HospitalIn the event this information is protected by the Federal Confidentiality of Alcohol and Drug Abuse Patient Records regulations: The Federal rules restrict any use of the information to criminally investigate or prosecute any alcohol or drug abuse patient.[facility] HospitalIn the event this information is protected by the Federal Confidentiality of Alcohol and Drug Abuse Patient Records regulations: The Federal rules restrict any use of the information to criminally investigate or prosecute any alcohol or drug abuse patient.[facility] HospitalIn the event this information is protected by the Federal Confidentiality of Alcohol and Drug Abuse Patient Records regulations: The Federal rules restrict any use of the information to criminally investigate or prosecute any alcohol or drug abuse patient.[facility] HospitalIn the event this information is protected by the Federal Confidentiality of Alcohol and Drug Abuse Patient Records regulations: The Federal rules restrict any use of the information to criminally investigate or prosecute any alcohol or drug abuse patient.[facility] HospitalIn the event this information is protected by the Federal Confidentiality of Alcohol and Drug Abuse Patient Records regulations: The Federal rules restrict any use of the information to criminally investigate or prosecute any alcohol or drug abuse patient.[facility] HospitalIn the event this information is protected by the Federal Confidentiality of Alcohol and Drug Abuse Patient Records regulations: The Federal rules restrict any use of the information to criminally investigate or prosecute any alcohol or drug abuse patient.[facility] HospitalIn the event this information is protected by the Federal Confidentiality of Alcohol and Drug Abuse Patient Records regulations: The Federal rules restrict any use of the information to criminally investigate or prosecute any alcohol or drug abuse patient.[facility] HospitalIn the event this information is protected by the Federal Confidentiality of Alcohol and Drug Abuse Patient Records regulations: The Federal rules restrict any use of the information to criminally investigate or prosecute any alcohol or drug abuse patient.[facility] HospitalIn the event this information is protected by the Federal Confidentiality of Alcohol and Drug Abuse Patient Records regulations: The Federal rules restrict any use of the information to criminally investigate or prosecute any alcohol or drug abuse patient.[facility] HospitalIn the event this information is protected by the Federal Confidentiality of Alcohol and Drug Abuse Patient Records regulations: The Federal rules restrict any use of the information to criminally investigate or prosecute any alcohol or drug abuse patient.[facility] HospitalIn the event this information is protected by the Federal Confidentiality of Alcohol and Drug Abuse Patient Records regulations: The Federal rules restrict any use of the information to criminally investigate or prosecute any alcohol or drug abuse patient.[facility] HospitalIn the event this information is protected by the Federal Confidentiality of Alcohol and Drug Abuse Patient Records regulations: The Federal rules restrict any use of the information to criminally investigate or prosecute any alcohol or drug abuse patient.[facility] HospitalIn the event this information is protected by the Federal Confidentiality of Alcohol and Drug Abuse Patient Records regulations: The Federal rules restrict any use of the information to criminally investigate or prosecute any alcohol or drug abuse patient.[facility] Reason for Visit (unrecogniz ed section and content) Reason Comments Sinus Problem Flu x 3 days Reason Onset Date Comments Refill Request 01/19/2023 Reason Comments Cough Runny nose x 2 days Reason Comments Refill Request Reason Comments IUD Reason Onset Date Comments Refill Request 02/20/2025 Reason Comments Orders Reason Comments [facility] Teams (unrecognized sec tion and content) Teacher Public Health Relationship Specialty Start Date End Date Mickey Banuelos MD PCP - General Family Medicine 10/28/15 Team Status: Active Member Role Status Dates Dr. Mickey Banuelos MD Family Provider Active Dr. Mickey Banuelos MD Primary Care Provider Active Team Status: Inactive Member Role Status Dates Dr. Mickey Banuelos MD Primary Care Provider Active Dr. Juana Kaiser MD Attending Provider, Referring Provider Active Teacher Public Health Relationship Specialty Start Date End Date Mickey Banuelos MD PCP - General Family Medicine 10/28/15 Teacher Public Health Relationship Specialty Start Date End Date Mickey Banuelos MD PCP - General Family Medicine 10/28/15 Teacher Public Health Relationship Specialty Start Date End Date Mickey Banuelos MD PCP - General Family Medicine 10/28/15 Teacher Public Health Relationship Specialty Start Date End Date Mickey Banuelos MD PCP - General Family Medicine 10/28/15 Team Status: Inactive Member Role Status Dates Dr. Mickey Banuelos MD Primary Care Provider Active Dr. Adrian Decker DO Emergency Provider Active Teacher Public Health Relationship Specialty Start Date End Date Mickey Banuelos MD PCP - General Family Medicine 10/28/15 Team Status: Inactive Member Role Status Dates Dr. Mickey Banuelos MD Primary Care Provider Active Dr. Adrian Decker DO Attending Provider, Emergency P drew Active Team Status: Inactive Member Role Status Dates Dr. Mickey Banuelos MD Primary Care Provide r, Attending Provider, Referring Provider Active Dr. Juana Kaiser MD Other Provider Active Teacher Public Health Relationship Specialty Start Date End Date Mickey Banuelos MD PCP - General Family Medicine 10/28/15 Teacher Public Health Relationship Specialty Start Date End Date Mcikey Banuelos MD PCP - General Family Medicine 10/28/15 Teacher Public Health Relationship Specialty Start Date End Date Mickey Banuelos MD PCP - General Family Medicine 10/28/15 Teacher Public Health Relationship Specialty Start Date End Date Mickey Banuelos MD PCP - General Family Medicine 10/28/15 Teacher Public Health Relationship Specialty Start Date End Date Mickey Banuelos MD PCP - General Family Medicine 10/28/15 Team Status: Inactive Member Role Status Dates Dr. Mickey Banuelos MD Primary Care Provider Active Start: November 21, 2024 End: November 21, 2024 Dr. Mickey Banuelos MD Attending Provider Active St art: November 21, 2024 End: November 21, 2024 Dr. Mickey Banuelos MD Referring Provider Active St art: November 21, 2024 End: November 21, 2024 Team Status: Inactive Member Role Status Dates Dr. Mickey Banuelos MD Primary Care Provider Active Start: December 02, 2024 End: December 02, 2024 Dr. Juana Kaiser MD Attending Provider Active Start: December 02, 2024 End: December 02, 2024 Dr. Juana Kaiser MD Referring Provider Active Start: December 02, 2024 End: December 02, 2024 Team Status: Inactive Member Role Status Dates Dr. Mickey Banuelos MD Primary Care Provider Active Start: February 25, 2025 End: February 25, 2025 Dr. Juana Kaiser MD Attending Provider Active Start: February 25, 2025 End: February 25, 2025 Dr. Juana Kaiser MD Referring Provider Active Start: February 25, 2025 End: February 25, 2025 Teacher Public Health Relationship Specialty Start Date End Date Mickey Banuelos MD PCP - [facility] 10/28/15 Teacher Public Health Relationship Specialty Start Date End Date Mickey Banuelos MD PCP - [facility] 10/28/15 Team Status: Active Member Role/Relationship Status Dates Dr. Mickey Banuelos MD Family Provider Active Dr. Mickey Banuelos MD Primary Care Provider Active Team Status: Inactive Member Role/Relationship Status Dates Dr. Mickey Banuelos MD Primary Care Provider Active Start: February 25, 2025 End: February 25, 2025 Dr. Juana Kaiser MD Attending Provider Active Start: February 25, 2025 End: February 25, 2025 Dr. Juana Kaiser MD Referring Provider Active Start: February 25, 2025 End: February 25, 2025 Team Status: Inactive Member Role/Relationship Status Dates Dr. Mickey Banuelos MD Primary Care Provider Active Start: June 11, 2025 End: June 11, 2025 Dr. Mickey Banuelos MD Attending Provider Active St art: June 11, 2025 End: June 11, 2025 Dr. Mickey Banuelos MD Referring Provider Active St art: June 11, 2025 End: June 11, 2025 FOR RECORDS PERTAINING TO PATIENTS WHO ARE [...] BE BASED ON THE PRIMARY CLINICAL RECORDS. [facility] provides no warranty or guarantee of the accuracy or completeness of information in this document.
== END | disposition home or self-care (01) ==
LOC: LAB 16:52
PROVIDERS: PCP Family Medicine; Referring Provider Internal Medicine Rheumatology; Visit Provider Internal Medicine Rheumatology
DX: M05.79 Rheumatoid arthritis with rheumatoid factor of multiple sites without organ or systems involvement (principal); Z79.899 Other long term (current) drug therapy
CPT/HCPCS: 36415; 80053; 85025